=== PATIENT | female | born 1985 | race Caucasian/White ===

== ENCOUNTER 2016-12-28 10:20 | Emergency (ER) | payer OTHER ==
[~2016-12-28] VITALS: Ht 177.8 cm; Wt 188.2 kg
[~2016-12-28 10:20] MED LIST: IBUPROFEN800 MG PO; KEFLEX500 MG PO; NATURAL IRON65 MG PO; PERCOCET MONOGRA5 MG PO; VITAFOL-ONE1 SGL PO; VITAMIN D1000 IU PO; ZANTAC 150MG150 MG PO
--- NOTE | 2016-12-28 11:05 | ED SKIN/ALLERGY COMPLAINT ---
History of Present Illness General Chief Complaint: General Adult Stated Complaint: SENT BY MD FOR EVAL OF CELLULITIS OF LT LEG Source: patient, old records Exam Limitations: no limitations Vital Signs & Intake/Output Vital Signs & Intake/Output Vital Signs Date Time Temp Pulse Resp B/P B/P Pulse O2 O2 Flow FiO2 Mean Ox Delivery Rate 12/28 1253 100.2 12/28 1251 100.2 94 20 127/77 100 Room Air 12/28 1026 98.6 111 18 144/71 97 Room Air Allergies Coded Allergies: NO KNOWN ALLERGIES (06/25/15) Reconcile Medications Cephalexin (Keflex) 500 MG CAPSULE 1 CAP PO TID cellulitis Triage Note: 31 Y/O FEMALE SENT BY YG MENENDEZ FOR EVAL OF L LOWER EXTREMITY REDNESS/SWELLING X 24 HOURS. HX CELLULITIS AND STATES THIS IS SIMILIAR. HAS HAD TO GET IV ANTIBIOTICS IN THE PAST FOR SAME. PT HAD TEMP IN MD OFFICE 101.8 - AFEBRILE IN TRIAGE. YG MENENDEZ ALSO SENT QUICK STREP IN OFFICE BUT TOO EARLY TO TELL RESULTS. Triage Nurses Notes Reviewed? yes Onset: Abrupt Duration: day(s): (1), constant Timing: recent history Severity: mild Severity Numbers: 5 Location: extremities Possible Factors: no cause identified No Modifying Factors: none Associated Symptoms: sore throat : No Patient currently breastfeeds: No HPI: 31 -year-old female with history of recurrent lower extremity cellulitis presents to the ER for evaluation sent in by her primary care physician complaining of a one-day history of left lower extremity redness for the past one day. The patient has a history of cellulitis in the past that has required admission back in 2014. She states that 2 nights ago she had a sore throat associated generalized body aches and chills. The patient denies any known injury or trauma to the leg no difficulty with weightbearing or walking. She denies any swelling to the leg however states it is sore to the touch in the anterior aspect of her leg. She denies any drainage or open sores. No tick or insect bites no recent travel. She's been taking NyQuil for her symptoms with relief. No cough no shortness of breath no chest pain abdominal pain nausea vomiting or diarrhea. The patient states her primary care physician sent her here for a dose of IV antibiotics and be sent home with a prescription (TJ GARDNER) Past History Travel History Traveled to [place] past 21 day No Medical History Any Pertinent Medical History? 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 No (TJ GARDNER) Review of Systems Review of Systems Constitutional: Reports: see HPI. All Other Systems: Reviewed and Negative Comments Review of systems: See HPI, All other systems negative. Constitutional, no chills no fever, no malaise HEENT: No visual changes sore throat no congestion, no ear pain Cardiovascular: No chest pain , no palpitation , no orthopnea Skin: See HPI Respiratory: No dyspnea no cough no sputum no hemoptysis GI: No nausea no vomiting, no diarrhea, no bloating/constipation : No dysuria No hematuria, Muscle skeletal: No joint pain, no joint swelling, no back pain, no neck pain, Neurologic: No numbness no headache Psych: No stress no depression,. Heme/endocrine: No bruising no bleeding Immunology: No lymphadenopathy (TJ GARDNER) Physical Exam Physical Exam General Appearance: well developed/nourished, alert, awake, comfortable Comments: Well-developed well-nourished person in no acute distress Head/Face: Atraumatic, no maxillary/frontal sinus tenderness, no facial swelling Eyes: PERRL, EOMI, no conjunctival injection Ear:External auditory canals clear, no erythema, no FB. Nose: atraumatic.Normal inspection: No bleeding Throat: Moist mucous membranes.Pharynx normal. No pharyngeal erythema/exudate seen. No stridor/drooling or assymetry. No swelling or edema. Neck: Supple, no lymphadenopathy, FROM Back: Nontender, no CVA tenderness. Full range of motion Cardiovascular: Regular rate and rhythms no murmurs rubs Respiratory: Chest nontender.There were no bony deformities, no asymmetry. No respiratory distress. Patient speaking in full complete sentences. Breath sounds clear to auscultation bilaterally: NO W/R/R Abdomen: Soft, Obese nontender nondistended, no appreciable organomegaly. Normal bowel sounds. No rebound/guarding, ascites. upper Extremity: No edema, full range of motion of extremities, normal and equal pulses bilaterally, 5 out of 5 strength noted to bilateral upper extremities Hip/Pelvis: Atraumatic/Stable. FROM. Knee: Atraumatic/stable. FROM. No joint swelling, no effusion Leg: There is a circumferential area of erythema extending from the ankle to the mid lower leg not extending to the knee joint, nontender sensation is intact, there is no open wounds or sores noted drainage, Nontender. No edema, 5 out of 5 strength in the lower extremity, normal dorsiflexion of great toe bilaterally, gross sensation is intact, patellar tendon reflex 2+ bilaterally. Ankle/Foot: Atraumatic/stable. Skin intact. FROM. No swelling, no effusion. No laxity on exam Pulses: Normal/equal DP/PT pulses bilaterally. Brisk cap refill Neuro: Alert oriented x3, motor sensory normal, There were no obvious focal neurologic abnormalities. Skin: No appreciable rash on exposed skin, skin is warm and dry. Psych: Mood and affect is normal, memory and judgment is normal. (SANGEETA CASILLAS,TJ) Progress Differential Diagnosis: abscess/cellulitis, allergic reaction, anaphylaxis, contact dermatitis, erythema multiforme, lyme disease, scarlet fever, toxic shock syndrome, urticaria, COMPARTMENT SYNDROME FRACTURE SPRAIN CONTUSION dvt Plan of Care: Orders Procedure Date/time Status BLOOD CULTURE 12/28 111 Active LYME TITRE 12/28 111 Active COMPREHENSIVE METABOLIC PANEL 12/28 111 Complete CBC WITHOUT DIFFERENTIAL 12/28 111 Complete Laboratory Tests 12/28/16 1130: Anion Gap 14, Estimated GFR > 60, BUN/Creatinine Ratio 12.0, Glucose 115 H, Calcium 8.3 L, Total Bilirubin 0.9, AST 19, ALT 32, Alkaline Phosphatase 90, Total Protein 6.9, Albumin 3.7, Globulin 3.2, Albumin/Globulin Ratio 1.2, CBC w Diff MAN DIFF ORDERED, RBC 4.63, MCV 77.0 L, MCH 26.4 L, RDW 14.8 H, MPV 7.8, Gran % 93.0 H, Lymphocytes % 3.9 L, Monocytes % 2.9, Eosinophils % 0, Basophils % 0.2, Absolute Granulocytes 13.2 H, Segmented Neutrophils 86 H, Band Neutrophils 6 H, Absolute Lymphocytes 0.5 L, Lymphocytes 3 L, Monocytes 5, Absolute Monocytes 0.4, Absolute Eosinophils 0, Absolute Basophils 0, Platelet Estimate ADEQUATE, Normocytic RBCs VERIFIED, Normochromic RBCs VERIFIED , PUBS MCHC 34.2, Lyme Disease Antibody Pending Microbiology 12/28 1130 BLOOD: Blood Culture - RECD 12/28 1112 BLOOD: Blood Culture - ORD Labs ordered old records reviewed patient medicated with Cefzolin 2 g IV case and labs d/w dr dias agrees with plan I discussed with the patient at length all of their results. I had an extensive conversation regarding need for close follow up with their primary care physician/or return to the ER in 48 hours for wound check, as well as return precautions. I answered all of their questions, they feel comfortable with the plan and follow-up care. I discussed the medications that they will receive with the patient. I gave them signs and symptoms that could indicate an adverse reaction. I have advised them to limit their activities until they can see how they respond to the medication. (TJ GARDNER) Departure Departure Time of Disposition: 1229 Disposition: HOME OR SELF CARE Condition: Stable Clinical Impression Primary Impression: Cellulitis Referrals: RAFAT PAGE,VIDAL Nielsen (PCP/Family) Additional Instructions: as discusssed follow up with yg menendez or return to the ER on monday for wound check. keflex as directed. This was sent to your pharmacy: [facility]. Return immediately if you have persistent fever chills despite Tylenol Motrin worsening of your rash or any other concerns Departure Forms: Customer Survey General Discharge Information Prescriptions: Current Visit Scripts Cephalexin (Keflex) 1 CAP PO TID #30 CAP (TJ GARDNER) PA/INSIDE SALES ACCOUNT REPRESENTATIVE Co-Sign Statement Statement: ED Attending supervision documentation- I saw and evaluated the patient. I have also reviewed all the pertinent lab results and diagnostic results. I agree with the findings and the plan of care as documented in the PA's/INSIDE SALES ACCOUNT REPRESENTATIVE's documentation. x I have reviewed the ED Record and agree with the PA's/INSIDE SALES ACCOUNT REPRESENTATIVE's documentation. [] Additions or exceptions (if any) to the PAs/INSIDE SALES ACCOUNT REPRESENTATIVE's note and plan are summarized below: [] (NEREIDA ESCOBAR,JRERY)
[2016-12-28 11:42] LABS: ABSOLUTE BASOPHIL COUNT 0 /CUMM (0.0-0.2); ABSOLUTE EOSINOPHIL COUNT 0 /CUMM (0.0-0.7); ABSOLUTE GRANULOCYTE CT 13.2 /CUMM (1.4-6.5); ABSOLUTE LYMPH COUNT 0.5 /CUMM (1.2-3.4); ABSOLUTE MONOCYTE COUNT 0.4 /CUMM (0.10-0.60); BASOPHIL % 0.2 % (0.0-2.0); EOSINOPHIL % 0 % (0-5); HEMATOCRIT 35.7 % (37-47); MEAN CORPUSCULAR HGB 26.4 PG (27.0-31.0); MEAN CORPUSCULAR HGB CONC 34.2 G/DL (33.0-37.0); MEAN PLATELET VOLUME 7.8 FL (7.4-10.4); PLATELET COUNT 238 /CUMM (130-400); RBC DISTRIBUTION WIDTH 14.8 % (11.5-14.5); RED BLOOD CELL CT 4.63 /CUMM (4.20-5.40); WHITE BLOOD CELL COUNT 14.2 /CUMM (4.8-10.8)
[2016-12-28] MEDS ORDERED: KEFLEX500 M1 PO (12:32)
[2016-12-28 12:51] VITALS: BP 127/77
== END 2016-12-28 12:58 ==
LOC: ERH 10:20
PROVIDERS: Physician Assistant Medical
DX: L03.116 Cellulitis of left lower limb (principal)
CPT/HCPCS: 86618; 87040; 96374; J0690

== ENCOUNTER 2016-12-30 02:37 | Inpatient (IN) | payer OTHER ==
[~2016-12-30] VITALS: Ht 180.3 cm; Wt 186.0 kg
[~2016-12-30 02:37] MED LIST changes: +KEFLEX500 M1 PO
--- NOTE | 2016-12-30 03:06 | NUR ---
31YO FEMALE TO TRIAGE W/CO LLE CELLULITIS WORSENING. STATE SHE WAS SEEN HERE ON MON, AND NOW CHILLS, N,V,D TODAY.
--- NOTE | 2016-12-30 03:30 | NUR ---
DEVIKA BY DR PADRON
--- NOTE | 2016-12-30 03:50 | NUR ---
IV INSERTED AFTER GREAT DIFFICULTY LABS DRAWN--SST,BLUE,LANDIN,LAV ALL SENT TO LAB. CO ROSS AND NAUSEA.
[2016-12-30 04:03] LABS: ABSOLUTE BASOPHIL COUNT 0 /CUMM (0.0-0.2); ABSOLUTE EOSINOPHIL COUNT 0 /CUMM (0.0-0.7); ABSOLUTE LYMPH COUNT 0.9 /CUMM (1.2-3.4); ABSOLUTE MONOCYTE COUNT 0.6 /CUMM (0.10-0.60); BASOPHIL % 0.1 % (0.0-2.0); EOSINOPHIL % 0.1 % (0-5); GRANULOCYTE % 86.9 % (42.2-75.2); MEAN CORPUSCULAR HGB CONC 33.2 G/DL (33.0-37.0); MEAN CORPUSCULAR VOLUME 78.5 FL (81.0-99.0); PLATELET COUNT 224 /CUMM (130-400); RBC DISTRIBUTION WIDTH 14.8 % (11.5-14.5); RED BLOOD CELL CT 4.33 /CUMM (4.20-5.40); WHITE BLOOD CELL COUNT 11.5 /CUMM (4.8-10.8)
--- NOTE | 2016-12-30 04:44 | NUR ---
PT TO BE ADMITTED HOUSE STAFF HERE TO [facility]
--- NOTE | 2016-12-30 04:48 | ED SKIN/ALLERGY COMPLAINT ---
History of Present Illness General Chief Complaint: Lower Extremity Problems Stated Complaint: "PER PT LT LEG PAIN,N+V+D,CHILLS,FEVER" Source: patient, old records Exam Limitations: no limitations Vital Signs & Intake/Output Vital Signs & Intake/Output Vital Signs Date Time Temp Pulse Resp B/P B/P Pulse O2 O2 Flow FiO2 Mean Ox Delivery Rate 12/30 0315 97 Room Air 12/30 0307 98.5 98 20 111/77 97 Room Air Room Air Allergies Coded Allergies: NO KNOWN ALLERGIES (06/25/15) Reconcile Medications Cephalexin (Keflex) 500 MG CAPSULE 1 CAP PO TID cellulitis Triage Note: 31YO FEMALE TO TRIAGE W/CO LLE CELLULITIS WORSENING. STATE SHE WAS SEEN HERE ON MON, AND NOW CHILLS, N,V,D TODAY. Triage Nurses Notes Reviewed? yes Onset: Last week Duration: day(s):, constant, continues in ED, getting worse Timing: recent history Severity: moderate Location: extremities Possible Factors: no cause identified No Modifying Factors: none Associated Symptoms: change in skin texture, rash LMP (ages 10-50): unknown : No Patient currently breastfeeds: No HPI: Several days prior to admission patient develop nausea vomiting fever and red rash below her knee to her ankle. She was seen in the emergency department given IV antibiotics declined hospitalization and discharged home. She presents with continued symptoms without improvement. She denies diarrhea abdominal pain chest pain cough shortness of breath headache dysuria bleeding. Past History Travel History Traveled to [place] past 21 day No Medical History Any Pertinent Medical History? 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 No Review of Systems Review of Systems Constitutional: Reports: see HPI, chills, fever, malaise. EENTM: Reports: no symptoms. Respiratory: Reports: no symptoms. Cardiovascular: Reports: no symptoms. GI: Reports: see HPI, nausea, vomiting. Genitourinary: Reports: no symptoms. Musculoskeletal: Reports: no symptoms. Skin: Reports: see HPI, rash. Neurological/Psychological: Reports: no symptoms. Hematologic/Endocrine: Reports: no symptoms. Immunologic/Allergic: Reports: no symptoms. All Other Systems: Reviewed and Negative Physical Exam Physical Exam General Appearance: well developed/nourished, alert, awake, anxious, mild distress, obese Head: atraumatic, normal appearance Eyes: Bilateral: normal appearance, PERRL, EOMI. Ears, Nose, Throat: normal pharynx, normal ENT inspection, hearing grossly normal Neck: normal inspection, supple Respiratory: normal breath sounds Cardiovascular: regular rate/rhythm Peripheral Pulses: 4+ carotid (R), 4+ carotid (L) Gastrointestinal: normal bowel sounds, soft, non-tender Back: normal inspection, normal range of motion, no vertebral tenderness Extremities: normal inspection, normal range of motion, no edema Neurologic/Psych: awake, alert, oriented x 3, normal mood/affect Reflexes: 2+: bicep (R), bicep (L). Skin: intact, rash Skin Problem Location: lower extremities (left leg) Skin Problem Character: erythema, rash Lymphatic: no anterior cervical christy Progress Differential Diagnosis: abscess/cellulitis, allergic reaction, contact dermatitis Plan of Care: Orders Procedure Date/time Status Regular Diet 12/30 B Active OXYGEN SETUP (GEN) 12/30 326 Active Saline Lock 12/30 326 Active Admit to inpatient 12/30 326 Active Vital Signs 12/30 326 Active Activity/Ambulation 12/30 326 Active COMPREHENSIVE METABOLIC PANEL 12/30 326 Complete CBC WITHOUT DIFFERENTIAL 12/30 326 Complete Code Status 12/30 326 Active Current Medications Sig/Juan Carlos Start time Last Medication Dose Stop Time Status Admin Ondansetron HCl 4 MG ONCE ONE 12/31 399 UNVr 12/30 (Zofran) 12/30 0401 0400 Laboratory Tests 12/30/16 0350: Anion Gap 10, Estimated GFR > 60, BUN/Creatinine Ratio 17.8, Glucose 127 H, Calcium 8.4, Total Bilirubin 0.7, AST 33, ALT 39, Alkaline Phosphatase 109, Total Protein 6.6, Albumin 3.4 L, Globulin 3.2, Albumin/Globulin Ratio 1.1, CBC w Diff NO MAN DIFF REQ, RBC 4.33, MCV 78.5 L, MCH 26.0 L, RDW 14.8 H, MPV 8.0 , Gran % 86.9 H, Lymphocytes % 7.5 L, Monocytes % 5.4, Eosinophils % 0.1, Basophils % 0.1, Absolute Granulocytes 10.0 H, Absolute Lymphocytes 0.9 L, Absolute Monocytes 0.6, Absolute Eosinophils 0, Absolute Basophils 0, PUBS MCHC 33.2 Departure Departure Time of Disposition: 0330 Disposition: STILL A PATIENT Condition: Stable Clinical Impression Primary Impression: Cellulitis of leg, left Referrals: RAFAT PAGE,VIDAL Nielsen (PCP/Family) Departure Forms: Customer Survey General Discharge Information Admission Note Sp[facility] Documentation of Exam: Documentation of any treatments & extenuating circumstances including Concerns Regarding Discharge (functional status, medication knowledge or non-compliance, living conditions, etc.) that warrant an admission rather than observation: Failure of oral antibiotics requiring IV antibiotics IV antiemetic IV analgesia medication adjustment follow cultures continuing care discharge planning
--- NOTE | 2016-12-30 05:01 | History & Physical ---
MABLE TELLEZ 12/30/16 0501: General Information and HPI MD Statement: I have seen and personally examined CRISPIN CERDA and documented this H&P. The patient is a 31 year old F who presented with a patient stated chief complaint of [left lower leg cellulitis]. Source of Information: patient, old records Exam Limitations: no limitations History of Present Illness: 31-year-old morbidly obese woman was admitted for cellulitis failed outpatient antibiotic treatment. Patient has past medical history significant for multiple cellulitis and chronic lymphatic B/L lower extremities edema. In 2014 patient was admitted for cellulitis of the right lower extremity in [facility] which was treated with cefazolin inpatient/Keflex outpatient. The remainder of her past medical history and social history and family history is noncontributory. According to patient she was at her normal state of health up until 12/26/2016 when she started feeling fatigue, malaise, intermittent shaking chills and high-grade fever (maximum pressure of 102 Fahrenheit). Patient symptoms worsen over time. Patient felt nauseous intermittently and vomited 2 or 3 times and her by mouth intake decreased. On Monday for the first time patient noticed intense redness, warmth, tender area on her left lower extremity from the left ankle to below knee. Patient denies any trauma, abrasion, to the affected came she also denies any chest pain , palpitation, difficulty breathing, muscle weakness, postural drainage, honey- colored crusting. She was seen in the emergency room on 12/28/2016, and received 1 dose of IV cefazolin and was started on by mouth Keflex and discharged home. Her symptoms failed to improve on by mouth antibiotics and patient presents to emergency room on Monday morning complaining of left lower extremity redness and tenderness and intractable nausea. 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 yes Functional Ability ADLs Independent: dressing, eating, toileting, bathing. Ambulation: independent IADLs Independent: shopping, housework, finances, food prep, telephone, transportation , medication admin. Review of Systems Review of Systems Constitutional: Reports: see HPI. EENTM: Reports: see HPI. Cardiovascular: Reports: see HPI. Respiratory: Reports: see HPI. GI: Reports: see HPI, nausea, vomiting. Genitourinary: Reports: see HPI. Musculoskeletal: Reports: see HPI. Skin: Reports: change in skin color, erythema. Denies: lumps, moles, rash. All Other Systems: Reviewed and Negative Exam & Diagnostic Data Last 24 Hrs of Vital Signs/I&O Vital Signs Date Time Temp Pulse Resp B/P B/P Pulse O2 O2 Flow FiO2 Mean Ox Delivery Rate 12/30 0545 80 106/58 12/30 0510 98.7 82 16 92/55 97 Room Air 12/30 0315 97 Room Air 12/30 0307 98.5 98 20 111/77 97 Room Air Room Air Intake & Output 12/30 0800 12/30 0000 12/29 1600 Intake Total 450 Output Total 200 Balance 250 Intake, IV 250 Intake, Oral 200 Output, Urine 200 Patient 410 lb Weight Physical Exam General Appearance Alert, Oriented X3, Cooperative, No Acute Distress Skin LLE erythema , LLE warmth HEENT Atraumatic, PERRLA, EOMI, Mucous Membr. moist/pink Neck Supple, No JVD, No thryomegaly, +2 Carotid Pulse wo Bruit, No LAD Lymphatic Axillary nl, Cervical nl Cardiovascular Normal S1, Normal S2, No Murmurs Lungs Clear to Auscultation, Normal Air Movement Abdomen Normal Bowel Sounds, Soft, No Tenderness, No Hepatospenomegaly, No Masses Neurological Normal Speech Extremities non-pittin edema of B/L lowr extremities Vascular Normal Pulses, Pulses Symmetrical Body Front and Back (Adult) 1) redness Last 24 Hrs of Labs/Davon: Laboratory Tests 12/30/16 0350: Anion Gap 10, Estimated GFR > 60, BUN/Creatinine Ratio 17.8, Glucose 127 H, Calcium 8.4, Total Bilirubin 0.7, AST 33, ALT 39, Alkaline Phosphatase 109, Total Protein 6.6, Albumin 3.4 L, Globulin 3.2, Albumin/Globulin Ratio 1.1, CBC w Diff NO MAN DIFF REQ, RBC 4.33, MCV 78.5 L, MCH 26.0 L, RDW 14.8 H, MPV 8.0 , Gran % 86.9 H, Lymphocytes % 7.5 L, Monocytes % 5.4, Eosinophils % 0.1, Basophils % 0.1, Absolute Granulocytes 10.0 H, Absolute Lymphocytes 0.9 L, Absolute Monocytes 0.6, Absolute Eosinophils 0, Absolute Basophils 0, PUBS MCHC 33.2 Assessment/Plan Assessment: 31-year-old woman was admitted for cellulitis failed outpatient antibiotic therapy. Patient has leukocytosis and normal metabolic panel. Assessment and plan #1 cellulitis: Causes cellulitis would be susceptible coccus and Staphylococcus at the top of the list. There is no helen polyps in the physical exam which decreased concern regarding MRSA infection. * Admit to general medical floor * Obtain Doppler ultrasound to rule out DVT * Repeat C BC tomorrow * Marked the area to assess response to treatment * Patient received vancomycin in the emergency room; not necessary * Start IV cefazolin 1000 mg every 8 hours * By mouth Zofran sublingual as needed for nausea -Pain management mild: Tylenol; moderate ketorolac; severe IV morphine -DVT prophylaxis-heparin 5000 units every 8 hours subcutaneous -Full code As Ranked By This Provider Problem List: 1. Cellulitis 2. Edema Core Measures/Miscellaneous Acute Coronary Syndrome ACS Diagnosis: No Cerebrovascular Accident CVA/TIA Diagnosis: No Congestive Heart Failure CHF Diagnosis: No Venous Thromboembolism VTE Risk Factors: Acute medical illness, Age > 40, Immobility, paresis, Obesity [facility] prophylaxis d/t: No contraindications No VTE Pharm Prophylaxis d/t: No contraindications VTE Diagnosis: No VTE Type: NONE VTE Confirmed by (Test): NONE Severe Sepsis Severe Sepsis Present: No Septic Shock Septic Shock Present: No Miscellaneous Documentation Attending Case Discussed With: HAJA GARCIA MD Primary Care Physician: VIDAL HENDRIX Patient sees these Specialists Hospitalist Level of Patient Care: General Medicine Resident Review Statement Resident Statement: examined this patient, discussed with pharmacist intern, agreed with pharmacist intern, discussed with family, reviewed EMR data (avail), discussed with nursing , discussed with case mgmt, reviewed images, amended to note RADHA ESCOBAR, [facility] 12/30/16 0608: Attending MD Review Statement Attending Statement Attending MD Statement: examined this patient, discuss w/resident/PA/MISSILE PAD MECHANIC, agreed w/resident/PA/MISSILE PAD MECHANIC Attending Assessment/Plan: 31 yo morbidly obese F with chronic lymphedema, previous cellulitis, bipolar d/o , was sent in to ER 2 days ago by PCP for LLE cellulitis that started off as flu like symptoms 1 week ago. She has dry skin and reports scratching her legs, but no tick or insect bites. She was advised admission but refused and was sent home on Keflex. She returns today for persistent fever (102)/chills, nausea and vomiting, failed outpatient abx therapy. Of note, patient reports seeing a Vascular surgeon 2 yrs ago and was diagnosed with ?venous insufficiency. VSS. Extremities: b/l LE nonpitting edema, LLE: diffuse erythema extending upto left knee with warmth, induration and tenderness , no weeping lesions, pulses weak. Labs: WBC 11.5, microcytic anemia, K 3.3, glucose 127. 1. Left lower extremity cellulitis, failed outpatient antibiotic therapy. GM admit, leg elevation, panculture, received IV vanco in ER, will initiate cefazolin, holding off Vanco (no obvious purulence), IV fluids, check lactic acid. Rule out DVT. Treat eczema with topical meds. Replete potassium. 2. Evaluate microcytic anemia. Patient currently has her menses. DVT ppx Hep SC. Full code.
--- NOTE | 2016-12-30 05:21 | NUR ---
PT ASSIGNED TO [place] [id number]
--- NOTE | 2016-12-30 05:49 | Admission Certification ---
Admission Certification Certification Statement - As attending physician, I certify that at the time of - admission, based on clinical presentation, severity of - symptoms, need for further diagnostic testing and - therapeutic interventions, and risk of adverse outcomes - without in-hospital treatment, in my clinical assessment, - this patient requires an acute hospital stay for a minimum - of two nights or longer. I have also considered psychsocial - factors such as support system, advanced age, financial - issues, cognitive issues, and failed out-patient treatments, - past re-admission history, safety of patient, and lack of - compliance as applicable. Specific rationale supporting this admission is: Left lower extremity cellulitis, failed outpatient antibiotic therapy.
--- NOTE | 2016-12-30 07:00 | NUR ---
PT ARRIVED FROM ER VIA STRETCHER, AMBULATED TO BED WITHOUT DIFFICULTY. LLE BRIGHT RED, WARM TO TOUCH, EDEMATIS WITH INCREASED PAIN/TENDERNESS WITH PRESSURE OR STANDING. RLE +1-2 EDEMA, BILAT +4 PEDAL EDEMA. BILAT FEET VERY DRY. SMALL CRACK IN SKIN BETWEEN LT GREAT AND 2ND TOES. PT STATES SHE STARTED MENSES YESTERDAY. HOME [employer] CONTACTED R/T LACTIC ACID BLOOD ORDERS. FIRST DRAW ORDERED FOR 0900 WITH REPEAT @ 0908. STATES WILL FIX.
--- NOTE | 2016-12-30 07:18 | PN- Housestaff ---
JAKE ESCOBAR,[facility] 12/30/16 0718: Subjective Follow-up For: Cellulitis failed outpatient therapy Subjective: Patient is lying comfortably in bed. States that she had several episodes of cellulitis in the RLE, 2 episodes in the LLE over the last year. She has also seen a vascular surgeon when she was 20, and was told that she has venous insufficiency of her lower extremities, which did not need any intervention. Review of Systems Constitutional: Reports: see HPI. Objective Last 24 Hrs of Vital Signs/I&O Vital Signs Date Time Temp Pulse Resp B/P B/P Pulse O2 O2 Flow FiO2 Mean Ox Delivery Rate 12/30 0545 80 106/58 12/30 0510 98.7 82 16 92/55 97 Room Air 12/30 0315 97 Room Air 12/30 0307 98.5 98 20 111/77 97 Room Air Room Air Intake & Output 12/30 0800 12/30 0000 12/29 1600 Intake Total 450 Output Total 200 Balance 250 Intake, IV 250 Intake, Oral 200 Output, Urine 200 Patient 410 lb Weight Weight Reported by Patient Measurement Method Physical Exam General Appearance: Alert, Oriented X3, Cooperative, No Acute Distress Cardiovascular: Regular Rate, Normal S1, Normal S2 Lungs: Clear to Auscultation, Normal Air Movement Abdomen: Normal Bowel Sounds, Soft, No Tenderness Neurological: Normal Speech, Strength at 5/5 X4 Ext, Normal Tone, Sensation Intact Extremities: No Clubbing (L), LLE shows erythema extending upto the mid calf with mild tenderness. No edema noted. Current Medications: Current Medications Sig/Juan Carlos Start time Last Medication Dose Route Stop Time Status Admin Acetaminophen 650 MG Q6P PRN 12/30 0415 AC PO Cefazolin Sodium 1,000 MG IQ8 12/30 0800 AC IV Heparin Sodium 5,000 UNIT Q8 12/30 0600 AC (Porcine) SC Ketorolac 15 MG Q6P PRN 12/30 0415 AC Tromethamine IV Ketorolac 0 .STK-MED ONE 12/30 0400 DC Tromethamine .ROUTE Ketorolac 30 MG ONCE ONE 12/30 0330 DC 12/30 Tromethamine IV 12/30 0331 0400 Morphine Sulfate 4 MG Q4P PRN 12/30 0415 AC IV Ondansetron HCl 4 MG ONCE PRN 12/30 0515 AC PO Ondansetron HCl 4 MG ONCE ONE 12/30 0400 DC 12/30 IV 12/30 0401 0400 Ondansetron HCl 0 .STK-MED ONE 12/30 040 DC .ROUTE Potassium Chloride 20 MEQ BID 12/30 1000 AC PO Potassium Chloride 10 MEQ Q1H 12/30 0615 DC IV 12/30 0716 Sodium Chloride 1,000 ML Q8H 12/30 0730 UNVr IV Sodium Chloride 1,000 ML BOLUS ONE 12/30 0615 CAN IV 12/30 0814 Sodium Chloride 1,000 ML ONCE ONE 12/30 0615 AC IV 12/30 1414 Vancomycin HCl 0 .STK-MED ONE 12/31 399 DC .ROUTE Vancomycin HCl 1,000 MG ONCE ONE 12/30 0330 DC 12/30 Sodium Chloride 250 ML IV 12/30 0429 0406 Last 24 Hrs of Lab/Davon Results Last 24 Hrs of Labs/Mics: Laboratory Tests 12/30/16 0547: Urine Color PINK H, Urine Clarity HAZY H, Urine pH 6.5, Ur Specific [place] 1.010, Urine Protein 100 H, Urine Ketones NEG, Urine Nitrite NEG, Urine Bilirubin NEG@ICTO, Urine Urobilinogen 4.0 H, Ur Leukocyte Esterase SMALL H, Ur Microscopic SEDIMENT EXAMINED, Urine RBC >75 H, Urine WBC 15-25 H, Ur Epithelial Cells FEW, Urine Bacteria MANY H, Urine Hemoglobin LARGE H, Urine Glucose NEG 12/30/16 0350: Anion Gap 10, Estimated GFR > 60, BUN/Creatinine Ratio 17.8, Glucose 127 H, Calcium 8.4, Iron 22 L, TIBC 288, Ferritin 142.0 H, Total Bilirubin 0.7, AST 33, ALT 39, Alkaline Phosphatase 109, Total Protein 6.6, Albumin 3.4 L, Globulin 3.2, Albumin/Globulin Ratio 1.1, CBC w Diff NO MAN DIFF REQ, RBC 4.33, MCV 78.5 L, MCH 26.0 L, RDW 14.8 H, MPV 8.0, Gran % 86.9 H, Lymphocytes % 7.5 L, Monocytes % 5.4, Eosinophils % 0.1, Basophils % 0.1, Absolute Granulocytes 10.0 H, Absolute Lymphocytes 0.9 L, Absolute Monocytes 0.6, Absolute Eosinophils 0, Absolute Basophils 0, PUBS MCHC 33.2 Microbiology 12/30 06 BLOOD: Blood Culture - ORD 12/31 607 BLOOD: Blood Culture - ORD Lines/Diet/Fluids Lines: peripheral lines Assessment/Plan Assessment: 31 y/o F with h/o Bipolar Disorder, seen in the ED 2 days ago for cellulitis of the LLE, sent out on Keflex, returns with persistent fevers, chills, nausea and vomiting. She also has a history of ?vascular insufficiency for which she had seen a vascular surgeon 2 years ago. In the ED, labs showed and elevated WBC of 11.5 and K of 3.3. She is currentl admitted to the general medicine floor for management of cellulitis. Problem List: * Cellulitis of LLE * H/O Bipolar Disorder * Microcytic Anemia Plan: * Monitor on General Medicine floor. * Continue Cefazolin pending cultures. * Doppler of the LE pending. * Hypokalemia: Currently on 40 mg Kdur. Recheck K. * DVT PPx: SubQ Heparin * Pain Pathway: Tylenol, Toradol, Ketorolac * Code Status: Full Code Problem List: 1. Cellulitis of leg, left Pain Ratin Pain Location: LLE Pain Goal: Pain 4 or less Pain Plan: Per EMR Tomorrow's Labs & Rationales: CBC for infection monitoring. DVT/Prophylaxis: pharmacological LORI LEON MD 12/30/16 1032: Attending MD Review Statement Attending Statement Attending MD Statement: examined this patient, discuss w/resident/PA/VETERINARY X RAY OPERATOR, agreed w/resident/PA/VETERINARY X RAY OPERATOR, reviewed EMR data (avail) Attending Assessment/Plan: 31F PMH chronic lymphedema, morbid obesity, recurrent bilateral LE cellulitis, bipolar disorder admitted with LLE cellulitis failing outpatient therapy ( Cephalex) with fever 102, nausea, vomiting, and generalized weakness. Patient feels better today, denies pain, afebrile overnight, BP 105/66 but stable. LLE erythematous and tender from ankle to just below knee anteriorly. Labs show hypokalemia (3.3), iron deficiency anemia, WBC 11.4. 1. Recurrent LLE cellulitis 2. Failure of outpatient therapy 3. Morbid obesity 4. Chronic lymphedema 5. Iron deficiency anemia 6. Hypokalemia Plan - Continue on general medicine - Continue Cefazolin - Monitor for improvement of erythema - Follow blood cultures - Leg elevation - Continue home medications - Nutrition consult - DVT PPx
[2016-12-30 07:42] VITALS: BP 105/60
--- NOTE | 2016-12-30 12:13 | ULTRASOUND REPORT ---
EXAMINATION: US TRIPLEX OF LOWER EXTREMITIES, BILATERAL CLINICAL INFORMATION: Pain and swelling COMPARISON: None TECHNIQUE: Color-flow triplex imaging with spectral analysis and compression Doppler were performed on the lower extremities. FINDINGS: Respiratory variation, normal compression and augmented flow are noted throughout the lower extremities. The visualized common femoral vein, superficial femoral vein, profunda femoral vein, popliteal vein and midcalf peroneal and posterior tibial venous segments show no evidence of deep venous thrombosis. There is no Simmons's cyst. Inguinal lymph nodes measuring up to 4.8 cm IMPRESSION: Normal triplex scan without evidence of deep venous thrombosis involving the lower extremities. Enlarged left inguinal lymph nodes.
[2016-12-30 14:30] VITALS: BP 100/58
--- NOTE | 2016-12-30 14:34 | Patient Discharge Instructions ---
Discharge Instructions General Discharge Information You were seen/treated for: Cellulitis of Left Leg Special Instructions: Please make an appointment to see your PCP Within one week from discharge. Diet Recommended Diet: Low Fat Activity Activity Self Limited: Yes Acute Coronary Syndrome Inclusion Criteria At DC or during hospital stay patient has or had the following: ACS DIAGNOSIS No Discharge Core Measures Meds if any: Prescribed or Continued at Discharge Meds if any: NOT Prescribed or Continued at Discharge Congestive Heart Failure Inclusion Criteria At DC or during hospital stay patient has or had the following: CHF DIAGNOSIS No Discharge Core Measures Meds if any: Prescribed or Continued at Discharge Meds if any: NOT Prescribed or Continued at Discharge Cerebrovascular accident Inclusion Criteria At DC or during hospital stay patient has or had the following: CVA/TIA Diagnosis No Discharge Core Measures Meds if any: Prescribed or Continued at Discharge Meds if any: NOT Prescribed or Continued at Discharge Venous thromboembolism Inclusion Criteria VTE Diagnosis No VTE Type NONE VTE Confirmed by (Test) NONE Discharge Core Measures - Per Current guidelines, there needs to be overlap - treatment for the first 5 days of Warfarin therapy. - If discharged on Warfarin prior to 5 days of - overlap therapy, the patient will need to be - assessed for post discharge needs including - *Post discharge parental anticoagulation - *Warfarin and/or parental anticoagulation education - *Follow up date to check INR post discharge At least 5 days overlap therapy as Inpatient Yes Meds if any: Prescribed or Continued at Discharge Note: Overlap Therapy is Warfarin and Anticoagulant Meds if any: NOT Prescribed or Continued at Discharge
--- NOTE | 2016-12-30 14:40 | Discharge Summary ---
See Addendum Visit Information Visit Dates Admission Date: 12/30/16 Discharge Date: 01/03/17 Hospital Course Course Attending Physician: LORI LEON MD Primary Care Physician: VIDAL HENDRIX Hospital Course: 31 y/o F with h/o Bipolar Disorder, seen in the ED 2 days ago for cellulitis of the LLE, sent out on Keflex, returns with persistent fevers, chills, nausea and vomiting. She also has a history of vascular insufficiency for which she had seen a vascular surgeon 2 years ago. In the ED, labs showed and elevated WBC of 11.5 and K of 3.3. She is currently admitted to the general medicine floor for management of cellulitis. She was initiated on Cefazolin for cellulitis, pending cultures. There was marked improvement in the area of erythema. Nutritional consult was placed for dietary instruction. She was discharged on Keflex 500 mg Q6 for a total 10 day course. Allergies: Coded Allergies: NO KNOWN ALLERGIES (06/25/15) Significant Procedures: Doppler of B/L LE was negative for DVT Pertinent Lab Results: Vital Signs Date Time Temp Pulse Resp B/P B/P Pulse O2 O2 Flow FiO2 Mean Ox Delivery Rate 01/03 0614 97.9 89 20 117/66 92 Room Air 01/02 2250 98.5 90 20 140/73 99 Room Air 01/02 1439 98.7 100 20 128/70 95 Room Air 01/02 0644 98.1 97 20 100/70 98 Room Air 01/01 2239 98.1 93 18 119/58 100 Room Air 01/01 1516 97.8 102 18 130/70 96 Room Air 01/01 0647 98.6 92 18 110/72 94 Room Air 12/31 2305 98.3 85 20 132/60 97 Room Air 12/31 1435 98.0 95 20 109/60 98 Room Air 12/31 0721 97.7 97 20 108/68 98 Room Air 12/30 2231 98.7 101 20 96/70 94 Room Air 05/ 1430 98.9 82 18 100/58 94 Room Air Room Air 05/ 0742 99.1 85 18 105/60 91 Room Air 05/ 0545 80 106/58 05/12 0510 98.7 82 16 92/55 97 Room Air 05/ 0315 97 Room Air 12/30 0307 98.5 98 20 111/77 97 Room Air Room Air Disposition Summary Disposition Principal Diagnosis: Cellulitis of LLE Additional Diagnosis: Morbid Obesity Vascular insufficiency of b/l LE Discharge Disposition: home or self care Discharge Instructions General Discharge Information Code Status: Full Code Patient's Diet: Low Fat, Heart Healthy Patient's Activity: As tolerated Follow-Up Instructions/Appts: Please make an appointment to see your PCP within one week from discharge. Medications at Discharge Discharge Medications: Stop taking the following medications: Cephalexin (Keflex) 500 MG CAPSULE ORAL THREE TIMES DAILY Qty = 30 Start taking the following new medications: Cephalexin (Keflex) 500 MG CAPSULE 500 Milligram ORAL EVERY SIX HOURS Days = 6 No Refills Copies To: RAFAT PAGE,VIDAL Nielsen
--- NOTE | 2016-12-30 19:52 | NUR ---
BEDSIDE REPORT GIVEN. PT C/O HEADACH. PT LLE RED/WARM/SWOLLEN. PT OOB IND, CALL LIGHT WITHIN REACH. TOLERATING REG DIET. REFUSES ALPS.
[2016-12-30 22:31] VITALS: BP 96/70
[2016-12-31 07:21] VITALS: BP 108/68
--- NOTE | 2016-12-31 08:11 | PN- Housestaff ---
See Addendum Subjective Follow-up For: cellulitis Subjective: pt reports difficulty sleeping last night her wbc has come down from 11.5 to 9.6. k 3.3 to 3.6 .. will give another 1 x dose of kdur redness on lle improved, still edematous. she complains of soreness on the back of left leg anticipated discharge tmr on oral abx. pt agreeable. Review of Systems Constitutional: Reports: see HPI. Objective Last 24 Hrs of Vital Signs/I&O Vital Signs Date Time Temp Pulse Resp B/P B/P Pulse O2 O2 Flow FiO2 Mean Ox Delivery Rate 12/31 0721 97.7 97 20 108/68 98 Room Air 12/30 2231 98.7 101 20 96/70 94 Room Air 12/30 1430 98.9 82 18 100/58 94 Room Air Room Air Intake & Output 12/31 1600 12/31 0800 12/31 0000 Intake Total 920 1220 Output Total Balance 920 1220 Intake, IV 600 300 Intake, Oral 320 920 Physical Exam General Appearance: Alert, Oriented X3, Cooperative, No Acute Distress Cardiovascular: Regular Rate, Normal S1, Normal S2 Lungs: Clear to Auscultation, Normal Air Movement Abdomen: Normal Bowel Sounds, Soft, No Tenderness Neurological: Normal Speech Extremities: LLE erythema and swelling Current Medications: Current Medications Sig/Juan Carlos Start time Last Medication Dose Route Stop Time Status Admin Acetaminophen 650 MG .STK-MED ONE 12/31 0035 DC PO 12/31 0036 Acetaminophen 650 MG Q6P PRN 12/30 0515 12/31 PO 0819 Cefazolin Sodium 1,000 MG IQ8 12/30 0800 AC 12/31 IV 0812 Heparin Sodium 5,000 UNIT Q8 12/30 0600 12/31 (Porcine) SC 0805 Ketorolac 15 MG Q6P PRN 12/30 0515 12/30 Tromethamine IV 1959 Morphine Sulfate 4 MG Q4P PRN 12/30 0515 AC IV Ondansetron HCl 4 MG ONCE PRN 12/30 0515 AC 12/30 PO 0956 Patient Medication 1 ED .STK-MED ONE 12/30 1350 DC Teaching ED 12/30 1351 Potassium Chloride 40 MEQ ONCE ONE 12/31 0915 UNVr PO 12/31 0916 Sodium Chloride 1,000 ML Q8H 12/30 0730 AC 12/31 IV 0807 Sodium Chloride 1,000 ML ONCE ONE 12/30 0615 DC 12/30 IV 12/30 1414 0730 Assessment/Plan Assessment: 31 y/o F with h/o Bipolar Disorder, seen in the ED 2 days ago for cellulitis of the LLE, sent out on Keflex, returns with persistent fevers, chills, nausea and vomiting. She also has a history of ?vascular insufficiency for which she had seen a vascular surgeon 2 years ago. In the ED, labs showed and elevated WBC of 11.5 and K of 3.3. She is currentl admitted to the general medicine floor for management of cellulitis. Problem List: * Cellulitis of LLE * H/O Bipolar Disorder * Microcytic Anemia Plan: * Monitor on General Medicine floor. * Continue Cefazolin pending cultures. * AD tmr with oral abx * Doppler of the LE done (no dvt) * Hypokalemia: Given 2X40 mg Kdur. Recheck K in am * DVT PPx: SubQ Heparin * Pain Pathway: Tylenol, Toradol, Ketorolac * Code Status: Full Code Problem List: 1. Cellulitis of leg, left Pain Ratin Pain Location: left leg Pain Goal: Pain 4 or less Pain Plan: mild pp Tomorrow's Labs & Rationales: bep for hypokalemia cbc for leukocytosis DVT/Prophylaxis: pharmacological, refused alps
[2016-12-31 08:39] LABS: ABSOLUTE BASOPHIL COUNT 0 /CUMM (0.0-0.2); ABSOLUTE EOSINOPHIL COUNT 0.1 /CUMM (0.0-0.7); ABSOLUTE GRANULOCYTE CT 7.3 /CUMM (1.4-6.5); ABSOLUTE LYMPH COUNT 1.5 /CUMM (1.2-3.4); ABSOLUTE MONOCYTE COUNT 0.7 /CUMM (0.10-0.60); BASOPHIL % 0.3 % (0.0-2.0); EOSINOPHIL % 0.8 % (0-5); GRANULOCYTE % 75.8 % (42.2-75.2); HEMATOCRIT 32.5 % (37-47); MEAN CORPUSCULAR HGB 26.3 PG (27.0-31.0); MEAN CORPUSCULAR HGB CONC 33.1 G/DL (33.0-37.0); MEAN CORPUSCULAR VOLUME 79.3 FL (81.0-99.0); MEAN PLATELET VOLUME 8.3 FL (7.4-10.4); PLATELET COUNT 225 /CUMM (130-400); WHITE BLOOD CELL COUNT 9.6 /CUMM (4.8-10.8)
[2016-12-31 14:35] VITALS: BP 109/60
[2016-12-31 23:05] VITALS: BP 132/60
[2017-01-01 06:47] VITALS: BP 110/72
--- NOTE | 2017-01-01 07:49 | PN- Housestaff ---
See Addendum Subjective Follow-up For: cellulitis Subjective: cellulitis improved complains of headache, most likely due to allergy, will give 1Xclaritin no other complains labs reviewed Review of Systems Constitutional: Reports: see HPI. Objective Last 24 Hrs of Vital Signs/I&O Vital Signs Date Time Temp Pulse Resp B/P B/P Pulse O2 O2 Flow FiO2 Mean Ox Delivery Rate 01/01 0647 98.6 92 18 110/72 94 Room Air 12/31 2305 98.3 85 20 132/60 97 Room Air 12/31 1435 98.0 95 20 109/60 98 Room Air Intake & Output 01/01 1600 01/01 0800 01/01 0000 Intake Total 500 480 Output Total Balance 500 480 Intake, Oral 500 480 Physical Exam General Appearance: Alert, Oriented X3, Cooperative, No Acute Distress Lungs: Clear to Auscultation, Normal Air Movement Abdomen: Normal Bowel Sounds, Soft, No Tenderness Neurological: Normal Speech Extremities: LLE still erythematous and edematous, although improved from yesterday Current Medications: Current Medications Sig/Juan Carlos Start time Last Medication Dose Route Stop Time Status Admin Acetaminophen 650 MG .STK-MED ONE 12/31 1846 DC PO 12/31 1847 Acetaminophen 650 MG Q6P PRN 12/30 0515 AC 12/31 PO 1846 Cefazolin Sodium 2,000 MG IQ8 12/31 1600 CAN IV Cefazolin Sodium 2 GM IQ8 12/31 1600 AC 01/01 N/A 1 UNIT IV 0751 Cefazolin Sodium 1,000 MG IQ8 12/30 0800 DC 12/31 IV 0812 Heparin Sodium 5,000 UNIT Q8 12/30 0600 AC 01/01 (Porcine) SC 0541 Ketorolac 15 MG Q6P PRN 12/30 0515 AC 01/01 Tromethamine IV 0541 Morphine Sulfate 4 MG Q4P PRN 12/30 0515 AC IV Ondansetron HCl 4 MG ONCE PRN 12/30 0515 AC 12/30 PO 0956 Last 24 Hrs of Lab/Davon Results Last 24 Hrs of Labs/Mics: Laboratory Tests 01/01/17 0630: Anion Gap 10, Estimated GFR > 60, BUN/Creatinine Ratio 18.8, CBC w Diff NO MAN DIFF REQ, RBC 3.99 L, MCV 79.2 L, MCH 26.1 L, RDW 15.0 H, MPV 8.2, Gran % 72.8, Lymphocytes % 18.8 L, Monocytes % 7.2, Eosinophils % 1.0, Basophils % 0.2 , Absolute Granulocytes 7.2 H, Absolute Lymphocytes 1.9, Absolute Monocytes 0.7 H, Absolute Eosinophils 0.1, Absolute Basophils 0, PUBS MCHC 33.0 Assessment/Plan Assessment: 31 y/o F with h/o Bipolar Disorder, seen in the ED 2 days ago for cellulitis of the LLE, sent out on Keflex, returns with persistent fevers, chills, nausea and vomiting. She also has a history of ?vascular insufficiency for which she had seen a vascular surgeon 2 years ago. In the ED, labs showed and elevated WBC of 11.5 and K of 3.3. She is currentl admitted to the general medicine floor for management of cellulitis. Problem List: * Cellulitis of LLE * H/O Bipolar Disorder * Microcytic Anemia Plan: * Monitor on General Medicine floor. * Continue Cefazolin * AD tmr with oral abx * Doppler of the LE done (no dvt) * DVT PPx: SubQ Heparin * Pain Pathway: Tylenol, Toradol, Ketorolac * Code Status: Full Code Problem List: 1. Cellulitis of leg, left Pain Ratin Pain Location: none Pain Goal: Remain pain free Pain Plan: mild pp Tomorrow's Labs & Rationales: none DVT/Prophylaxis: mechanical, pharmacological
[2017-01-01 08:08] LABS: ABSOLUTE BASOPHIL COUNT 0 /CUMM (0.0-0.2); ABSOLUTE EOSINOPHIL COUNT 0.1 /CUMM (0.0-0.7); ABSOLUTE GRANULOCYTE CT 7.2 /CUMM (1.4-6.5); ABSOLUTE LYMPH COUNT 1.9 /CUMM (1.2-3.4); ABSOLUTE MONOCYTE COUNT 0.7 /CUMM (0.10-0.60); BASOPHIL % 0.2 % (0.0-2.0); GRANULOCYTE % 72.8 % (42.2-75.2); HEMATOCRIT 31.6 % (37-47); MEAN CORPUSCULAR HGB 26.1 PG (27.0-31.0); MEAN CORPUSCULAR VOLUME 79.2 FL (81.0-99.0); MEAN PLATELET VOLUME 8.2 FL (7.4-10.4); PLATELET COUNT 263 /CUMM (130-400); RED BLOOD CELL CT 3.99 /CUMM (4.20-5.40); WHITE BLOOD CELL COUNT 9.9 /CUMM (4.8-10.8)
[2017-01-01 15:16] VITALS: BP 130/70
[2017-01-01 22:39] VITALS: BP 119/58
[2017-01-02 06:44] VITALS: BP 100/70
--- NOTE | 2017-01-02 07:23 | PN- Housestaff ---
JAKE ESCOBAR,[facility] 01/02/17 0723: Subjective Follow-up For: Cellulitis failed outpatient therapy Subjective: No complaints this AM Review of Systems Constitutional: Reports: see HPI. Objective Last 24 Hrs of Vital Signs/I&O Vital Signs Date Time Temp Pulse Resp B/P B/P Pulse O2 O2 Flow FiO2 Mean Ox Delivery Rate 01/02 0644 98.1 97 20 100/70 98 Room Air 01/01 2239 98.1 93 18 119/58 100 Room Air 01/01 1516 97.8 102 18 130/70 96 Room Air Intake & Output 01/02 1600 01/02 0800 01/02 0000 Intake Total 55 800 Output Total 350 Balance -295 800 Intake, IV 55 Intake, Oral 800 Output, Urine 350 Physical Exam General Appearance: Alert, Oriented X3, Cooperative, No Acute Distress Cardiovascular: Regular Rate, Normal S1, Normal S2, No Murmurs Lungs: Clear to Auscultation, Normal Air Movement Abdomen: Normal Bowel Sounds, Soft, No Tenderness Neurological: Normal Speech, Strength at 5/5 X4 Ext, Normal Tone, Sensation Intact Extremities: Left Lower extremity shows some erythema. Mild tenderness noted. Current Medications: Current Medications Sig/Juan Carlos Start time Last Medication Dose Route Stop Time Status Admin Acetaminophen 650 MG .STK-MED ONE 01/01 1311 DC PO 01/01 1312 Acetaminophen 650 MG Q6P PRN 12/30 0515 AC 01/01 PO 1310 Cefazolin Sodium 2 GM IQ8 12/31 1600 AC 01/02 N/A 1 UNIT IV 0726 Heparin Sodium 5,000 UNIT Q8 12/30 0600 AC 01/02 (Porcine) SC 0600 Ketorolac 15 MG Q6P PRN 12/30 05 AC 01/01 Tromethamine IV 1633 Loratadine 10 MG ONCE ONE 01/01 1245 DC 01/01 PO 01/01 1246 1326 Morphine Sulfate 4 MG Q4P PRN 12/30 0415 AC IV Ondansetron HCl 4 MG ONCE PRN 12/30 514 AC 12/30 PO 0956 Lines/Diet/Fluids Lines: peripheral lines Assessment/Plan Assessment: 31 y/o F with h/o Bipolar Disorder, seen in the ED 2 days ago for cellulitis of the LLE, sent out on Keflex, returns with persistent fevers, chills, nausea and vomiting. She also has a history of ?vascular insufficiency for which she had seen a vascular surgeon 2 years ago. In the ED, labs showed and elevated WBC of 11.5 and K of 3.3. She is currentl admitted to the general medicine floor for management of cellulitis. Problem List: * Cellulitis of LLE * H/O Bipolar Disorder * Microcytic Anemia Plan: * Monitor on General Medicine floor. * Continue Cefazolin for 1 more day * Patient can be discharged home tomorrow on Keflex. * DVT PPx: SubQ Heparin * Pain Pathway: Tylenol, Toradol, Ketorolac * Code Status: Full Code Problem List: 1. Cellulitis Pain Ratin Pain Location: None Pain Goal: Pain 4 or less Pain Plan: Per EMR Tomorrow's Labs & Rationales: None. Possible discharge today. DVT/Prophylaxis: pharmacological ARMAAN MULLEN MD 01/02/17 1534: Attending MD Review Statement Attending Statement Attending MD Statement: examined this patient, discuss w/resident/PA/INFORMATION BROKER, agreed w/resident/PA/INFORMATION BROKER, reviewed EMR data (avail), discussed with nursing, reviewed images Attending Assessment/Plan: Patient feels okay. She understands that her erythema is still quite considerable so we want to keep her another day on the Ancef on a higher dose. She is a 31-year-old with morbid obesity and venostasis who is here with a left lower extremity cellulitis having failed by mouth Keflex as an outpatient. At this point we'll continue the IV Ancef at 2 g every 8 hours and if clinically better will aim for discharge tomorrow. Does have a microcytic anemia which we are attributing to menstrual blood loss as she still actively menstruating. UA done on admission was also mixed with menstrual blood
[2017-01-02 14:39] VITALS: BP 128/70; BP 98/68
[2017-01-02] MEDS ORDERED: KEFLEX500 M1 PO (16:25)
[2017-01-02 22:50] VITALS: BP 140/73
[2017-01-03 06:14] VITALS: BP 117/66
--- NOTE | 2017-01-03 08:14 | PN- Housestaff ---
JAKE ESCOBAR,LAURA 01/03/17 0813: Subjective Follow-up For: Cellulitis of the LLE Subjective: Patient is sitting comfortably in bed with no complaints, she is anxious to leave today. Review of Systems Constitutional: Reports: see HPI. Objective Last 24 Hrs of Vital Signs/I&O Vital Signs Date Time Temp Pulse Resp B/P B/P Pulse O2 O2 Flow FiO2 Mean Ox Delivery Rate 01/03 614 97.9 89 20 117/66 92 Room Air 01/02 2250 98.5 90 20 140/73 99 Room Air 01/02 1439 98.7 100 20 128/70 95 Room Air Intake & Output 01/03 1600 01/03 0800 01/03 0000 Intake Total 240 600 Output Total Balance 240 600 Intake, IV Intake, Oral 240 600 Number 1 Bowel Movements Output, Urine Physical Exam General Appearance: Alert, Oriented X3, Cooperative, No Acute Distress Cardiovascular: Regular Rate, Normal S1, Normal S2, No Murmurs Lungs: Clear to Auscultation, Normal Air Movement Abdomen: Normal Bowel Sounds, Soft, No Tenderness, No Hepatospenomegaly Neurological: Normal Speech, Strength at 5/5 X4 Ext, Normal Tone, Sensation Intact Extremities: LLE shows erythema and mild tenderness, unchanged from yesterday. Current Medications: Current Medications Sig/Juan Carlos Start time Last Medication Dose Route Stop Time Status Admin Acetaminophen 650 MG .STK-MED ONE 01/02 2242 DC PO 01/02 224 Acetaminophen 650 MG Q6P PRN 12/30 0415 AC 01/02 PO 2242 Cefazolin Sodium 2 GM IQ8 12/31 1600 AC 01/03 N/A 1 UNIT IV 0804 Heparin Sodium 5,000 UNIT Q8 12/30 0600 AC 01/03 (Porcine) SC 0622 Ibuprofen 600 MG Q6P PRN 01/02 1300 AC PO Ketorolac 15 MG Q6P PRN 12/30 0515 CO 01/02 Tromethamine IV 1046 Morphine Sulfate 4 MG Q4P PRN 12/30 0515 AC IV Omeprazole 40 MG DAILY AC 01/03 0700 AC PO Ondansetron HCl 4 MG ONCE PRN 12/30 0515 AC 12/30 PO 0956 Patient Medication 1 UNIT 0700 01/03 0700 DC 01/03 Teaching ED 01/03 0701 0702 Patient Medication 1 ED .STK-MED ONE 01/[address] [facility] ED 01/02 1253 Lines/Diet/Fluids Lines: peripheral lines Assessment/Plan Assessment: 31 y/o F with h/o Bipolar Disorder, seen in the ED 2 days ago for cellulitis of the LLE, sent out on Keflex, returns with persistent fevers, chills, nausea and vomiting. She also has a history of ?vascular insufficiency for which she had seen a vascular surgeon 2 years ago. In the ED, labs showed and elevated WBC of 11.5 and K of 3.3. She is currentl admitted to the general medicine floor for management of cellulitis. Problem List: * Cellulitis of LLE * H/O Bipolar Disorder * Microcytic Anemia Plan: * Monitor on General Medicine floor. * Switch to Keflex 500 Q6 today and discharge home to complete a course of 10 days. * DVT PPx: SubQ Heparin * Pain Pathway: Tylenol, Toradol, Ketorolac * Code Status: Full Code Problem List: 1. Cellulitis Pain Ratin Pain Location: Left index finger Pain Goal: Pain 4 or less Pain Plan: Per EMR Tomorrow's Labs & Rationales: None, as the patient is to be discharged today. DVT/Prophylaxis: pharmacological LORI LEON MD 01/03/17 1245: Attending MD Review Statement Attending Statement Attending MD Statement: examined this patient, discuss w/resident/PA/BOLT MAN, agreed w/resident/PA/BOLT MAN, reviewed EMR data (avail) Attending Assessment/Plan: Agree with resident plan. Cellulitis is improving. Erythema still present near ankle but far improved from admission, and systemic symptoms have resolved. Patient may be discharged home on Cephalex, leg elevation, and outpatient follow up.
== END 2017-01-03 12:50 | DRG 603 ==
LOC: ERH 02:37 → 2NB 03:27 → ERHI 03:27 → ENRESERV 05:20 → 2NB 06:06 → ENPENDDIS 01-03 12:04 → 2NB 01-03 12:50
PROVIDERS: Emergency Medicine; Internal Medicine; Radiology Diagnostic Radiology; ADMIT Student in an Organized Health Care Education/Training Program
DX: L03.116 Cellulitis of left lower limb (principal); Z68.43 Body mass index [BMI] 50.0-59.9, adult; E66.01 Morbid (severe) obesity due to excess calories; I87.2 Venous insufficiency (chronic) (peripheral); D50.9 Iron deficiency anemia, unspecified; F31.9 Bipolar disorder, unspecified; I89.0 Lymphedema, not elsewhere classified; E87.6 Hypokalemia
CPT/HCPCS: 2NBSP; 36415; 81001; 82436; 87040; 93970; 96365; J0690; J1644; J1885; J2405; J3370

== ENCOUNTER 2017-01-20 21:57 | Inpatient (IN) | payer OTHER ==
[~2017-01-20] VITALS: Ht 180.3 cm; Wt 190.5 kg
--- NOTE | 2017-01-20 22:04 | NUR ---
PT STATES THAT SHE WAS ADMITTED HERE 2 WEEKS AGO FOR LLE CELLULITIS, FOLLOWED UP WITH IQRA VASQUEZ APRN YESTERDAY THAT ORDERED SPEACIAL DRESSINGS FOR HER OPEN AREAS ON LLE, PT STTAES THAT TODAY THERE IS INCREASED REDNESS AND DRAINAGE AND SKIN HOT TO TOUCH. CALLED PMD AND WAS TOLD TO COME TO ER. PT IS NOT ON ABT AT THIS TIME
--- NOTE | 2017-01-20 22:46 | ED UPPER/LOWER EXTREMITY COMPL ---
History of Present Illness General Chief Complaint: General Adult Stated Complaint: PT POSSIBLE CELLULITIS ON THE LEFT LEG Source: patient Exam Limitations: no limitations Vital Signs & Intake/Output Vital Signs & Intake/Output Vital Signs Date Time Temp Pulse Resp B/P B/P Pulse O2 O2 Flow FiO2 Mean Ox Delivery Rate 01/20 2200 97.4 106 18 134/78 98 Room Air Allergies Coded Allergies: NO KNOWN ALLERGIES (06/25/15) Reconcile Medications Cephalexin (Keflex) 500 MG CAPSULE 500 MG PO Q6 CELLULITIS Triage Note: PT STATES THAT SHE WAS ADMITTED HERE 2 WEEKS AGO FOR LLE CELLULITIS, FOLLOWED UP WITH IQRA VASQUEZ APRN YESTERDAY THAT ORDERED SPEACIAL DRESSINGS FOR HER OPEN AREAS ON LLE, PT STTAES THAT TODAY THERE IS INCREASED REDNESS AND DRAINAGE AND SKIN HOT TO TOUCH. CALLED PMD AND WAS TOLD TO COME TO ER. 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 EENTM: Reports: no symptoms. Respiratory: Reports: no symptoms. Cardiovascular: Reports: no symptoms. Gastrointestinal/Abdominal: Reports: no symptoms. Genitourinary: Reports: no symptoms. Musculoskeletal: Reports: no symptoms. Skin: Reports: no symptoms. Neurological/Psychological: Reports: no symptoms. Hematologic/Endocrine: Reports: no symptoms. Immunological: Reports: no symptoms. All Other Systems: Reviewed and Negative Physical Exam Physical Exam General Appearance: well developed/nourished, mild distress Head: atraumatic Eyes: Bilateral: PERRL, EOMI. Ears, Nose, Throat: normal pharynx, normal ENT inspection, hearing grossly normal Neck: normal inspection, supple Cardiovascular/Respiratory: regular rate/rhythm Back: normal inspection Skin: intact, normal color, warm/dry Lymphatic: no anterior cervical christy Departure Departure Condition: Stable Referrals: IQRA VASQUEZ APRN (PCP/Family) Departure Forms: Customer Survey General Discharge Information
--- NOTE | 2017-01-20 23:00 | NUR ---
PT TO ROOM 2. TRIAGE NOTE APPRECIATED. NO ACTIVE DRAINS NOTED ON LEFT CALF AREA. LEFT LEG WARM/RED AND SWOLLEN. LEFT PINKEY TOE FELL OFF YESTERDAY PER PT. SITE NOTE RED. NO DRAINS NOTED. AWAITING EVAL.
[2017-01-20] MEDS ORDERED: FERROUS SULFAT325 M3 PO (23:13)
[2017-01-20] MEDS ORDERED: ALEVE220 M2 PO (23:13)
[2017-01-20] MEDS ORDERED: SUDAFED PE PRE1 EAC3 PO (23:14)
--- NOTE | 2017-01-20 23:27 | ED SKIN/ALLERGY COMPLAINT ---
History of Present Illness General Chief Complaint: General Adult Stated Complaint: PT POSSIBLE CELLULITIS ON THE LEFT LEG Source: patient, old records Exam Limitations: no limitations Vital Signs & Intake/Output Vital Signs & Intake/Output Vital Signs Date Time Temp Pulse Resp B/P B/P Pulse O2 O2 Flow FiO2 Mean Ox Delivery Rate 01/200 97.4 106 18 134/78 98 Room Air ED Intake and Output 01/21 0000 01/20 1200 Intake Total Output Total Balance Patient 420 lb Weight Allergies Coded Allergies: NO KNOWN ALLERGIES (06/25/15) Reconcile Medications Ferrous Sulfate 325 MG (65 MG IRON) TABLET 1 TAB PO DAILY SUPPLEMENT ( Reported) Naproxen Sodium (Aleve) 220 MG TABLET 2 TAB PO PRN PAIN (Reported) Phenylephrine/Dm/Acetaminop/GG (Sudafed PE Pressure+Pain+Cold) 5 MG-10 MG-325 MG -100 MG TABLET 2 TAB PO PRN COLD SYMPTOMS (Reported) Triage Note: PT STATES THAT SHE WAS ADMITTED HERE 2 WEEKS AGO FOR LLE CELLULITIS, FOLLOWED UP WITH IQRA VASQUEZ APRN YESTERDAY THAT ORDERED SPEACIAL DRESSINGS FOR HER OPEN AREAS ON LLE, PT STTAES THAT TODAY THERE IS INCREASED REDNESS AND DRAINAGE AND SKIN HOT TO TOUCH. CALLED PMD AND WAS TOLD TO COME TO ER. PT IS NOT ON ABT AT THIS TIME Triage Nurses Notes Reviewed? yes Onset: Gradual Duration: constant Timing: recent history Severity: moderate Severity Numbers: 5 Location: extremities Possible Factors: no cause identified No Modifying Factors: none : No Patient currently breastfeeds: No HPI: Patient is a 31-year-old female with a past medical history of morbid obesity and a recent admission to [facility] on December 30 and discharged on January 03 for concerns of left lower extremity cellulitis in which patient states she has been complaining of a gradual onset of a 24-hour history of returning complaints of left lower leg swelling redness pain and mild purulent discharge and weeping wounds. Patient has positive chills denies any fever denies any shortness of breath chest pain, hemoptysis. (TJ WEBSTER) Past History Travel History Traveled to [place] past 21 day No Medical History Any Pertinent Medical History? 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 No (TJ WEBSTER) Review of Systems Review of Systems Constitutional: Reports: no symptoms. EENTM: Reports: no symptoms. Respiratory: Reports: no symptoms. Cardiovascular: Reports: no symptoms. GI: Reports: no symptoms. Genitourinary: Reports: no symptoms. Musculoskeletal: Reports: no symptoms. Skin: Reports: see HPI. Neurological/Psychological: Reports: no symptoms. Hematologic/Endocrine: Reports: no symptoms. Immunologic/Allergic: Reports: no symptoms. All Other Systems: Reviewed and Negative (TJ WEBSTER) Physical Exam Physical Exam General Appearance: no apparent distress, obese Head: atraumatic Eyes: Bilateral: normal appearance. Ears, Nose, Throat: hearing grossly normal Neck: normal inspection, supple, full range of motion Respiratory: normal breath sounds, chest non-tender, no respiratory distress Back: normal inspection Extremities: pedal edema Neurologic/Psych: no motor/sensory deficits, awake, alert Skin Problem Location: lower extremities Lymphatic: no anterior cervical christy Diagram Body: 1) Moderate point tenderness and erythema and warmth noted, gastrocnemius noted region of weeping discharge pedal pulse +2 dermatomes intact (TJ WEBSTER) Progress Differential Diagnosis: abscess/cellulitis, allergic reaction, erythema multiforme, urticaria, CELLULITIS, DVT Plan of Care: Orders Procedure Date/time Status LACTIC ACID 01/21 0232 Active Add-on Test (ER Only) 01/21 0134 Active LACTIC ACID 01/21 2332 Complete BLOOD CULTURE 01/20 2331 Active COMPREHENSIVE METABOLIC PANEL 01/20 2331 Complete CBC WITHOUT DIFFERENTIAL 01/20 2331 Complete Laboratory Tests 01/21/17 0005: Lactic Acid 1.0 01/21/17 0005: Anion Gap 9, Estimated GFR > 60, BUN/Creatinine Ratio 16.3, Glucose 103 H, Calcium 8.7, Total Bilirubin 0.7, AST 15, ALT 26, Alkaline Phosphatase 95, Total Protein 7.2, Albumin 3.7, Globulin 3.5, Albumin/Globulin Ratio 1.1, CBC w Diff NO MAN DIFF REQ, RBC 3.70 L, MCV 78.1 L, MCH 26.2 L, RDW 15.6 H, MPV 7.7, Gran % 88.3 H, Lymphocytes % 8.0 L, Monocytes % 3.3, Eosinophils % 0.2, Basophils % 0.2, Absolute Granulocytes 10.2 H, Absolute Lymphocytes 0.9 L, Absolute Monocytes 0.4, Absolute Eosinophils 0, Absolute Basophils 0, PUBS MCHC 33.5 Microbiology 01/21 0020 BLOOD: Blood Culture - RECD 01/21 0005 BLOOD: Blood Culture - RECD Discussed hand off with Dr. Martinez PT is receiving cefazolin IV Blood cultures pending labs currently are pending (TJ WEBSTER) Hand-Off Endorsed To: TEJAL MARTINEZ MD Endorsed Time: 36 Pending: labs (TJ WEBSTER) Departure Departure Disposition: STILL A PATIENT Condition: Stable Referrals: IQRA VASQUEZ APRN (PCP/Family) Departure Forms: Customer Survey General Discharge Information (TJ WEBSTER) Departure Clinical Impression Primary Impression: Cellulitis of leg, left Secondary Impressions: Lymphedema Admission Note Spoke With: NILTON BOLDEN MD Documentation of Exam: Documentation of any treatments & extenuating circumstances including Concerns Regarding Discharge (functional status, medication knowledge or non-compliance, living conditions, etc.) that warrant an admission rather than observation: PT WITH MARKED CHRONIC LYMPHEDEMA, WITH SIGNIFICANT RUBOR/CALOR/DOLOR OF LEFT LOWER EXTREMITY, EXTENDING FROM HER FOOT TO HER KNEE... ALSO WARMTH EXTENDING INTO THIGH. I DOUBT NECROTIZING FASCIITIS, BUT GIVEN HER LYMPHEDEMA AND EXTENT OF HER ERYTHEMA/TENDERNESS, SHE MERITS IV ABX. IF NOT IMPROVED IN AM, WOULD CONSIDER BROADENING TO VANCOMYCIN. WOULD ALSO CHECK U/S IN AM. PA/GEAR HOBBER OPERATOR Co-Sign Statement Statement: ED Attending supervision documentation- [X] I saw and evaluated the patient. I have also reviewed all the pertinent lab results and diagnostic results. I agree with the findings and the plan of care as documented in the PA's/GEAR HOBBER OPERATOR's documentation. [] I have reviewed the ED Record and agree with the PA's/GEAR HOBBER OPERATOR's documentation. [] Additions or exceptions (if any) to the PAs/GEAR HOBBER OPERATOR's note and plan are summarized below: [] (FUNMI ESCOBAR,TEJAL Haile)
--- NOTE | 2017-01-20 23:28 | NUR ---
VINNY FERNÁNDEZ AT BEDSIDE EVALUATING THE PT.
[2017-01-21 00:22] LABS: ABSOLUTE BASOPHIL COUNT 0 /CUMM (0.0-0.2); ABSOLUTE EOSINOPHIL COUNT 0 /CUMM (0.0-0.7); ABSOLUTE GRANULOCYTE CT 10.2 /CUMM (1.4-6.5); ABSOLUTE LYMPH COUNT 0.9 /CUMM (1.2-3.4); ABSOLUTE MONOCYTE COUNT 0.4 /CUMM (0.10-0.60); BASOPHIL % 0.2 % (0.0-2.0); EOSINOPHIL % 0.2 % (0-5); HEMATOCRIT 28.9 % (37-47); MEAN CORPUSCULAR HGB 26.2 PG (27.0-31.0); MEAN CORPUSCULAR HGB CONC 33.5 G/DL (33.0-37.0); MEAN CORPUSCULAR VOLUME 78.1 FL (81.0-99.0); MEAN PLATELET VOLUME 7.7 FL (7.4-10.4); PLATELET COUNT 260 /CUMM (130-400); RBC DISTRIBUTION WIDTH 15.6 % (11.5-14.5); WHITE BLOOD CELL COUNT 11.5 /CUMM (4.8-10.8)
[2017-01-21 00:42] LABS: GRANULOCYTE % 88.3 % (42.2-75.2)
--- NOTE | 2017-01-21 00:48 | NUR ---
IV CEFAZOLIN ORDERED.
--- NOTE | 2017-01-21 01:19 | NUR ---
PT VOMITED SMALL ABOUT OF WATERY VOMITUS. C/O LEFT ANKLE PAIN. MEDICATED WITH ZOFRAN AND TORADOL IVP ORDERED.
--- NOTE | 2017-01-21 02:25 | NUR ---
ZOFRAN AND TORADOL EFFECTIVE. NO C/O NAUSEA AND VOMTING. LEFT ANKLE PAIN DOWN TO 4/10.
--- NOTE | 2017-01-21 02:26 | History & Physical ---
FABRICE KEY 01/21/17 0225: General Information and HPI MD Statement: I have seen and personally examined CRISPIN CERDA and documented this H&P. The patient is a 31 year old F who presented with a patient stated chief complaint of increasing redness of left lower extremity. Source of Information: patient Exam Limitations: no limitations History of Present Illness: Ms Cerda is a 31-year-old woman who was known to be in her usual state of health until 7 days ago. She has a past history of multiple hospitalizations for lower extremity cellulitis, recent 01/04/2016 for left lower extremity cellulitis treated with Keflex. She came to [place] [facility] with a chief concern of worsening redness, drainage, pain of left lower extremity 7 days. As per the patient, she was asymptomatic for over a week after she completed the course of antibiotics as prescribed at the time of discharge for lower extremity cellulitis. Reported injury of left toenail , resulting in loss of skin integrity, approximately 7 days ago; she also noticed blistering of skin, dorsal side of left leg, noted serous discharge. Has seen the primary care physician, who recommended dressing change it regularly. Also noted redness, swelling, tenderness of left lower extremity in the last few days, which prompted the patient to seek medical attention at the emergency room. Also reported chills, myalgias, symptoms suggestive of upper respiratory tract infection times one day. Reported vomiting 1 this a.m. no intravenous drug use. Allergies/Medications Allergies: Coded Allergies: NO KNOWN ALLERGIES (06/25/15) Home Med list Ferrous Sulfate 325 MG (65 MG IRON) TABLET 1 TAB PO DAILY SUPPLEMENT ( Reported) Naproxen Sodium (Aleve) 220 MG TABLET 2 TAB PO PRN PAIN (Reported) Phenylephrine/Dm/Acetaminop/GG (Sudafed PE Pressure+Pain+Cold) 5 MG-10 MG-325 MG -100 MG TABLET 2 TAB PO PRN COLD SYMPTOMS (Reported) Past History Travel History Traveled to [place] past 21 day No Medical History Neurological: NONE EENT: sinusitis Cardiovascular: NONE Respiratory: ASTHMA LIKE SYMPTOMS WHEN SICK Gastrointestinal: NONE Hepatic: NONE Renal: NONE Musculoskeletal: NONE Psychiatric: NONE Endocrine: NONE Blood Disorders: NONE Cancer(s): NONE 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 yes Functional Ability ADLs Independent: dressing, eating, toileting, bathing. Ambulation: independent IADLs Independent: shopping, housework, finances, food prep, telephone, transportation , medication admin. Employment History Employment Employed Review of Systems Review of Systems Constitutional: Reports: see HPI, chills. Denies: fever. EENTM: Denies: double vision. Cardiovascular: Reports: peripheral edema. Denies: chest pain. Respiratory: Denies: cough, short of breath. GI: Denies: abdominal pain, melena. Genitourinary: Denies: hematuria. Musculoskeletal: Denies: back pain. Skin: Denies: change in skin color. Neurological/Psychological: Denies: anxiety. Hematologic/Endocrine: Reports: bruising. Denies: bleeding. Exam & Diagnostic Data Last 24 Hrs of Vital Signs/I&O Vital Signs Date Time Temp Pulse Resp B/P B/P Pulse O2 O2 Flow FiO2 Mean Ox Delivery Rate 01/21 0247 101.4 06/ 0236 101.4 108 20 114/61 95 Room Air 06/ 2200 97.4 106 18 134/78 98 Room Air Intake & Output 03 0800 06/03 0000 06/ 1600 Intake Total Output Total Balance Patient 420 lb Weight Physical Exam General Appearance Alert, Oriented X3, Cooperative, No Acute Distress Skin erythema and tenderness of left lower extremity extending from left ankle to left thigh region. ulcers on the dorsal side of left leg ( area of calf) size 6 cm x 10 cm with serous discharge. , erythema of left fifth toe Skin Temp/Moisture Exam: Warm/Dry Sepsis Skin Exam (color): Normal for Ethnicity, Flushed HEENT Atraumatic, PERRLA, EOMI, Mucous Membr. moist/pink Neck Supple, No JVD, No thryomegaly Lymphatic Cervical nl Cardiovascular Regular Rate, Normal S1, Normal S2 Lungs Normal Air Movement Abdomen Normal Bowel Sounds, Soft, No Tenderness, No Hepatospenomegaly Neurological Normal Speech, Strength at 5/5 X4 Ext, Normal Tone, Sensation Intact, Cranial Nerves 3-12 NL, Reflexes 2+ Extremities No Cyanosis, No Edema, Normal Pulses, No Tenderness/Swelling Vascular Normal Pulses Sepsis Peripheral Pulse Location: Dorsalis Pedis Sepsis Peripheral Pulse Exam: Normal Body Front and Back (Adult) 1) erythema and tenderness 2) multiple ulcers 3) tenderness of left fifth toe Assessment/Plan Assessment: She is an young woman with a past history of multiple hospital admissions for the treatment of lower extremity cellulitis likely due to venous insufficiency/ anatomic changes. At the time of admission, vitals-temperature 97.4, pulse rate 106, respiration 18, blood pressure 134/78, pulse ox 98% on room air. Lab findings indicated WBC 11.5, hemoglobin 9.7 (baseline 10.8) iron studies revealed low iron and ferritin with normal TIBC, platelets 260. Normal electrolytes, renal function and liver function was noted. Lactic acid 1.0. C-reactive protein 4.0 (elevated). Glucose 103. Differential diagnosis: #1 left lower extremity cellulitis #2 rule out DVT Below is the problem list and plan: #1 left lower extremity swelling, redness, and tenderness-likely due to left lower extremity cellulitis. The patient showed improvement upon treatment with Keflex. It would be prudent to continue the same antibiotic in order to avoid any resistance. If the patient does not respond to cefazolin, antibiotic coverage could be broadened. Follow blood cultures. Follow lactate. Follow venous Doppler left lower extremity. Follow resolution of erythema or time. Left lower extremity leg elevation. Pain management with Tylenol and NSAID. #2 high BMI-nutrition consult could be obtained. Check HbA1c, although glucose was normal. Check TSH. #3 DVT prophylaxis-pharmacological. As Ranked By This Provider Problem List: 1. Cellulitis of leg, left Core Measures/Miscellaneous Acute Coronary Syndrome ACS Diagnosis: No Cerebrovascular Accident CVA/TIA Diagnosis: No Congestive Heart Failure CHF Diagnosis: No Venous Thromboembolism VTE Risk Factors: Age > 40 No [facility] VTE prophylaxis d/t: No contraindications No VTE Pharm Prophylaxis d/t: No contraindications VTE Diagnosis: No VTE Type: NONE VTE Confirmed by (Test): NONE Severe Sepsis Severe Sepsis Present: No Septic Shock Septic Shock Present: No Miscellaneous Documentation Attending Case Discussed With: NILTON BOLDEN MD Primary Care Physician: IQRA VASQUEZ APRN Patient sees these Specialists none Level of Patient Care: General Medicine [facility] COLLINS [facility] 01/21/17 0308: Resident Review Statement Resident Statement: examined this patient, discussed with applications intern, agreed with applications intern Other Findings: Ms Cerda is a 31 year old woman with a past history of multiple hospitalizations for lower extremity cellulitis. Most recent admission for cellulitis was on and she was treated successfully with IV cefazolin and discharged with PO Keflex to complete 10 days therapy. Her symptoms completely resolved for over a week. She now comes to [place] ER with a chief compaint of worsening redness, pain, clear drainage, and pain of her left leg for the past 7 days. She also developed a fever, chills and myalgia 1 day ago and vomitted a few hours ago. Vital signs in the ER: Temperature 97.4F, pulse rate 106 bpm, respiration 18/min , blood pressure 134/78 mmhg, pulse ox 98% on room air. Physical Exam General Appearance: Alert, Oriented X3, Cooperative, No Acute Distress, morbidly obese Skin: erythema and tenderness of left lower extremity extending from left ankle to just below the left knee. Ulcers on the calf region oozing serous fluid Skin Temp/Moisture Exam: Warm/Dry Sepsis Skin Exam (color): Normal for Ethnicity, Flushed HEENT: Atraumatic, PERRLA, EOMI, Mucous Membr. moist/pink Neck: Supple, No JVD, No thryomegaly Lymphatic: Cervical nl Cardiovascular: Regular Rate, Normal S1, Normal S2 Lungs: Normal Air Movement Abdomen: Normal Bowel Sounds, Soft, No Tenderness, No Hepatospenomegaly Neurological: Normal Speech, Strength at 5/5 X4 Ext, Normal Tone, Sensation Intact, Cranial Nerves 3-12 NL, Extremities: No Cyanosis, No Edema, Normal Pulses, No Tenderness/Swelling Vascular: Normal Pulses Sepsis: Peripheral Pulse Location: Dorsalis Pedis Sepsis: Peripheral Pulse Exam: Normal Significant labs: CBC: WBC 11.5, Hemoglobin 9.7, platelets 260. BEP: Normal electrolytes. Lactic acid 1.0. C-reactive protein 4.0, Glucose 103. Of note, patient had a normal doppler ultrasound of her leg Problem list 1. Left lower extremity cellulitis (Recurrent) 2. History of lower extremity venous insufficiency 3. Morbid obesity Plan Admit to [facility] Blood culturesX2, urinalysis Start IV cefazolin 1 g Q 8 hrs Elevate leg on pillows hydration with IV normal saline at 75 cc/hr Pain control with Po tylenol 650 mg Q6 hrs PRN for mild pain or fever IV morphine 4 mg Q 6 hrs PRN for moderate to severe pain Check creatinine kinase DVT prophylaxis with SC lovenox 40 mg dailys Code status is full code NILTON BOLDEN 01/21/17 0356: Attending MD Review Statement Attending Statement Attending MD Statement: examined this patient, discuss w/resident/PA/OILER AND GREASER, agreed w/resident/PA/OILER AND GREASER, reviewed EMR data (avail), reviewed images, amended to note Attending Assessment/Plan: Cc: Left leg swelling, pain, redness PMH: Morbid obesity, venous insufficiency Patient came to ER for worsening redness, pain, swelling of left lower extremity. Patient was recently admitted and discharged for cellulitis on January 03 and completed total 10 days of antibiotics for cellulitis. Patient was symptomatically better, redness had improved but swelling was persistent. She developed some vesicles on posterior aspect of cough which opened up and she had denuded skin with some serous discharge but then approximately 1 week back patient had trauma to left fifth toe, and today she noticed increased redness and skin felt hot so she came to ER. She also has some allergies, cough and cold which she does not complain much about. Denies sore throat, difficulty swallowing. She endorses some chills and feeling hot with muscle aches but does not know if she had fever at home. She had one episode of vomiting today. Vitals: Tmax 101.4, heart rate 108, RR 20, blood pressure 114/61, saturating well on room air On exam: A O 3, cooperative, morbidly obese, no acute distress, neck supple, JVD normal, no lymphadenopathy, no sinus tenderness, chronically enlarged tonsils without inflammation or pharyngeal congestion, mucosa moist, no focal neurological deficit, no dependent edema, cellulitis left lower extremity with denuded skin on posterior aspect of cough, broken fifth toenail, no obvious fluctuation or discharge. CVS: S1-S2, RRR. RS: Clear to auscultate bilaterally. Abdomen: Soft, NT, ND, bowel sounds present. Labs: WBC 11.5, neutrophils 88%, hemoglobin 9.7, BMP, LFT unremarkable, lactate 1.0, CRP 4.1, ESR 68. A and P 31-year-old morbidly obese female with a past medical history significant for venous insufficiency, not evaluated in recent past presented with recurrent cellulitis. Patient was recently admitted on December 30 and discharged on January 03 with completed 10 days antibiotic for cellulitis including cefazolin followed by Keflex. Patient was symptomatically better in interim then developed redness, swelling, pain again, and left lower extremity after recent trauma, redness is marked. No obvious discharge but there is denuded skin on the posterior aspect of calf. No other source of infection found patient has mild cough but no obvious pharyngeal congestion. + Left lower extremity cellulitis + Morbid obesity, venous insufficiency - Admit to general medicine - Gentle hydration - Continue IV cefazolin - Pain control - DVT prophylaxis with Lovenox - Trend lactate - Patient had recent DVT Doppler on December 30 which was negative for DVT - Patient has anemia, but almost always checked been having acute infection, suggested to follow-up outpatient. She was recently prescribed ferrous sulfate which she started yesterday. She denies menorrhagia, melena or any chronic GI bleed.
--- NOTE | 2017-01-21 02:36 | NUR ---
Emergency Dept UC Admit Note: To be admitted to [facility] by DR. BOLDEN with CELLULITIS OF LT LEG as the diagnosis, to 2NB #[id number] location. Nursing Telecom Coordinator and admitting notified 01/21/17 at 0204
--- NOTE | 2017-01-21 02:41 | NUR ---
TYLENOL 650MG PO GIVEN PER VERBAL ORDER FROM HOUSE STAFF FOR TEMPERATURE 101.4. COLD COMPRESSION APPLIED ON FOREHEAD.
--- NOTE | 2017-01-21 02:43 | NUR ---
ATTEMPTED TO CALL REPORT. RN WILL CALL BACK.
--- NOTE | 2017-01-21 03:24 | NUR ---
CRISPIN CERDA Nurse Note by: MELVIN VANCE I agree with the SENIOR SOFTWARE DEVELOPMENT MANAGER findings/evaluation of this patient's condition. Entered by: MELVIN VANCE Date: 01/21/17 Time: 0324
[2017-01-21 03:56] VITALS: BP 104/62
--- NOTE | 2017-01-21 03:57 | Admission Certification ---
Admission Certification Certification Statement - As attending physician, I certify that at the time of - admission, based on clinical presentation, severity of - symptoms, need for further diagnostic testing and - therapeutic interventions, and risk of adverse outcomes - without in-hospital treatment, in my clinical assessment, - this patient requires an acute hospital stay for a minimum - of two nights or longer. I have also considered psychsocial - factors such as support system, advanced age, financial - issues, cognitive issues, and failed out-patient treatments, - past re-admission history, safety of patient, and lack of - compliance as applicable. Specific rationale supporting this admission is: Left lower extremity cellulitis
--- NOTE | 2017-01-21 04:55 | NUR ---
NURSING NOTE\; LATE ENTRY. PT ARRIVED TO FLOOR FROM ED BY STRETCHER. VITAL SIGNS: T: 99.9, PT RECEIVED TYLENOL HALF AN HOUR PRIOR TO ARRIVAL TO FLOOR, HR 113, 02: 94% ON ROOM AIR, RR: 22, LABORED BREATHING NOTED, BP: 104/62. PT A&OX3, OOB INDEPENDENTLY, HAT IN BATHROOM. ORDER FOR BEDREST AT THIS TIME. PT C/O PROD COUGH W/CLEAR SPUTUM. MUCINEX ORDERED AND GIVEN. CELLULITIS TO LLE REDDENED AND SWOLLEN, ELEVATED ON PILLOWS, SITE MARKED. L LEG PINKY TOE IS PINKISH/REDDISH IN COLOR. NO OPEN AREAS NOTED ON PTS SKIN. IV FLUIDS RUNNING AT 75 ML/HR. PT C/O PAIN 5/10 IN HER LLE. IV TORADOL GIVEN. PT SHOWN HOW TO USE CALL LIGHT SYSTEM. INFO PACKET GIVEN. AWAIT FURTHER ORDERS FROM MD. WILL CONTINUE TO MONITOR.
[2017-01-21 06:48] VITALS: BP 105/59
--- NOTE | 2017-01-21 07:39 | NUR ---
NURSING NOTE: PT HR 112. RENATA ESCOBAR MADE AWARE. NO EKG ORDERED. STATES TO MONITOR PTS HR DURING THE DAY AND IF SHE IS STILL TACHY AN EKG WILL BE ORDERED. PT DENIES SYMPTOMS. WILL CONTINUE TO MONITOR.
--- NOTE | 2017-01-21 12:16 | NUR ---
PT OFF FLOOR FOR ULTRASOUND OF LT LEG
--- NOTE | 2017-01-21 12:31 | NUR ---
PT RETURNED TO FLOOR FROM US
--- NOTE | 2017-01-21 13:02 | ULTRASOUND REPORT ---
EXAMINATION: US TRIPLEX LOWER EXTREMITY, LEFT CLINICAL INFORMATION: LLE edema, pain, tenderness COMPARISON: None TECHNIQUE: Color-flow triplex imaging with spectral analysis and compression Doppler were performed on the lower extremity. FINDINGS: Respiratory variation, normal compression and augmented flow are noted throughout the left lower extremity. The visualized common femoral vein, superficial femoral vein, profunda femoral vein, popliteal vein and midcalf peroneal and posterior tibial venous segments show no evidence of deep venous thrombosis. There is no Simmons's cyst. IMPRESSION: Normal triplex scan without evidence of deep venous thrombosis involving the lower extremity.
[2017-01-21 15:50] VITALS: BP 126/68
--- NOTE | 2017-01-21 17:57 | PN- Att Addend ---
Attending Addendum Attending Brief Note Laboratory Tests 01/21/17 0232: Lactic Acid Cancelled 01/21/17 0200: ESR Westergren 68 H 01/21/17 0005: Lactic Acid 1.0 01/21/17 0005: Anion Gap 9, Estimated GFR > 60, BUN/Creatinine Ratio 16.3, Glucose 103 H, Calcium 8.7, Total Bilirubin 0.7, AST 15, ALT 26, Alkaline Phosphatase 95, C- Reactive Prot, Quant 4.1 H, Total Protein 7.2, Albumin 3.7, Globulin 3.5, Albumin/Globulin Ratio 1.1, CBC w Diff NO MAN DIFF REQ, RBC 3.70 L, MCV 78.1 L , MCH 26.2 L, RDW 15.6 H, MPV 7.7, Gran % 88.3 H, Lymphocytes % 8.0 L, Monocytes % 3.3, Eosinophils % 0.2, Basophils % 0.2, Absolute Granulocytes 10.2 H, Absolute Lymphocytes 0.9 L, Absolute Monocytes 0.4, Absolute Eosinophils 0, Absolute Basophils 0, PUBS MCHC 33.5 Vital Signs Date Time Temp Pulse Resp B/P B/P Pulse O2 O2 Flow FiO2 Mean Ox Delivery Rate 01/21 1722 100.7 / 1550 97.6 99 18 126/68 100 Room Air / 1120 101.1 / 1100 101.1 / 0648 99.5 112 20 105/59 96 / 0413 99.9 / 0356 99.9 113 22 104/62 94 Room Air / 0300 94 Room Air / 0247 101.4 / 0236 101.4 108 20 114/61 95 Room Air / 2200 97.4 106 18 134/78 98 Room Air 31-year-old female with past medical history of morbid obesity and the cellulitis in the lower extremity is admitted with recurrent cellulitis of both lower extremities. Patient does have underlying venous insufficiency. Ultrasound of the lower extremity done today showed no DVT. Continue her on IV antibiotics with IV cefazolin for now. We will see how she does then we will switch her to by mouth antibiotics at the time of discharge. Patient will benefit from referral to bariatric surgery at the time of discharge. Discussed with patient weight loss options.
[2017-01-21 22:29] VITALS: BP 100/50
[2017-01-22 06:52] VITALS: BP 126/69
--- NOTE | 2017-01-22 08:12 | PN- Housestaff ---
Subjective Follow-up For: Left lower extremity cellulitis Complaints: pain scale (0-10) Subjective: Patient was seen and examined this morning. She is alert awake and oriented to time place and person. Overnight she spiked temperature 100.3 twice. Received IV Tylenol. Patient reports redness, swelling of left lower extremity associated with pain. Minimal relief with ketorolac Denied any chills. Denied any chest pain, racing of heart, headache. Patient reports a dry cough. Vitals were stable this morning Review of Systems Constitutional: Reports: fever. Denies: chills, diaphoresis, malaise, weakness. Objective Last 24 Hrs of Vital Signs/I&O Vital Signs Date Time Temp Pulse Resp B/P B/P Pulse O2 O2 Flow FiO2 Mean Ox Delivery Rate 01/22 0800 98.4 / 0701 100.3 / 0652 100.3 90 20 126/69 92 / 2229 93 20 100/50 96 Room Air 01/21 2100 98.4 01/21 1907 100.3 01/21 1722 100.7 /03 1550 97.6 99 18 126/68 100 Room Air /03 1120 101.1 /03 1100 101.1 Intake & Output 01/22 1600 /04 0800 01/22 0000 Intake Total 850 675 Output Total 875 Balance 850 -200 Intake, IV 600 225 Intake, Oral 250 450 Output, Urine 875 Physical Exam General Appearance: Alert, Oriented X3, Cooperative, No Acute Distress Skin: LEFT LOWER EXTREMITY ERYTHEMA, SWELLING, TENDERNESS, NON OOZING WOUNDS HEENT: Atraumatic, PERRLA, EOMI, Mucous Membr. moist/pink Neck: Supple, No JVD Lymphatic: Cervical nl Cardiovascular: Normal S1, Normal S2 Lungs: Normal Air Movement Abdomen: Normal Bowel Sounds, Soft, No Tenderness Extremities: No Clubbing, No Cyanosis Vascular: Normal Pulses Current Medications: Current Medications Sig/Juan Carlos Start time Last Medication Dose Route Stop Time Status Admin Acetaminophen 650 MG Q6P PRN 01/21 0300 AC 01/22 PO 0701 Cefazolin Sodium 1,000 MG Q8H 01/21 0900 AC 01/22 IV 0856 Enoxaparin Sodium 40 MG DAILY 01/21 1000 AC 01/22 SC 0903 Guaifenesin 10 ML Q4P PRN 01/22 1030 AC PO Guaifenesin 600 MG Q12 01/21 1000 AC 01/22 PO 0858 Hydromorphone HCl 2 MG .STK-MED ONE 01/22 2152 DC IM 01/21 2153 Ketorolac 15 MG Q6P PRN 01/21 0300 AC 01/22 Tromethamine IV 0556 Sodium Chloride 1,000 ML Q13H 01/21 0245 AC 01/22 IV 0556 Last 24 Hrs of Lab/Davon Results Last 24 Hrs of Labs/Mics: Laboratory Tests 01/22/17 0728: Anion Gap 8, Estimated GFR > 60, BUN/Creatinine Ratio 15.0, CBC w Diff NO MAN DIFF REQ, RBC 3.23 L, MCV 79.7 L, MCH 26.6 L, RDW 15.5 H, MPV 8.1, Gran % 81.6 H, Lymphocytes % 12.6 L, Monocytes % 5.5, Eosinophils % 0.2, Basophils % 0.1, Absolute Granulocytes 6.1, Absolute Lymphocytes 0.9 L, Absolute Monocytes 0.4, Absolute Eosinophils 0, Absolute Basophils 0, PUBS MCHC 33.4 Assessment/Plan Assessment: She is an young woman with a past history of multiple hospital admissions for the treatment of lower extremity cellulitis likely due to venous insufficiency/ anatomic changes. At the time of admission, vitals-temperature 97.4, pulse rate 106, respiration 18, blood pressure 134/78, pulse ox 98% on room air. Lab findings indicated WBC 11.5, hemoglobin 9.7 (baseline 10.8) iron studies revealed low iron and ferritin with normal TIBC, platelets 260. Normal electrolytes, renal function and liver function was noted. Lactic acid 1.0. C-reactive protein 4.0 (elevated). Glucose 103. Differential diagnosis: #1 left lower extremity cellulitis #2 rule out DVT Below is the problem list and plan: #1 cellulitis left lower extremity * left lower extremity swelling, redness, and tenderness-likely due to left lower extremity cellulitis. * The patient showed improvement upon treatment with Keflex. It would be prudent to continue the same antibiotic in order to avoid any resistance. * We'll continue Keflex day2 * Follow blood cultures. * Follow lactate- NEG. * Follow venous Doppler left lower extremity- NEG. * Left lower extremity leg elevation. * Pain management with Tylenol and NSAID. * Adequate hydration * monitor for fever, chills * Monitor WBC count * Monitor for worsening redness, swelling, pain left lower extremity #2 high BMI- nutrition consult could be obtained. Check HbA1c, although glucose was normal. Check TSH. #3 DVT prophylaxis- pharmacological. Problem List: 1. Cellulitis of leg, left Pain Ratin Pain Location: left lower ext Pain Goal: Remain pain free Pain Plan: torodal Tomorrow's Labs & Rationales: cbc
[2017-01-22 08:26] LABS: ABSOLUTE BASOPHIL COUNT 0 /CUMM (0.0-0.2); ABSOLUTE EOSINOPHIL COUNT 0 /CUMM (0.0-0.7); ABSOLUTE GRANULOCYTE CT 6.1 /CUMM (1.4-6.5); ABSOLUTE LYMPH COUNT 0.9 /CUMM (1.2-3.4); ABSOLUTE MONOCYTE COUNT 0.4 /CUMM (0.10-0.60); BASOPHIL % 0.1 % (0.0-2.0); EOSINOPHIL % 0.2 % (0-5); GRANULOCYTE % 81.6 % (42.2-75.2); HEMATOCRIT 25.7 % (37-47); MEAN CORPUSCULAR HGB 26.6 PG (27.0-31.0); MEAN CORPUSCULAR HGB CONC 33.4 G/DL (33.0-37.0); MEAN CORPUSCULAR VOLUME 79.7 FL (81.0-99.0); MEAN PLATELET VOLUME 8.1 FL (7.4-10.4); PLATELET COUNT 167 /CUMM (130-400); RBC DISTRIBUTION WIDTH 15.5 % (11.5-14.5); RED BLOOD CELL CT 3.23 /CUMM (4.20-5.40); WHITE BLOOD CELL COUNT 7.4 /CUMM (4.8-10.8)
[2017-01-22 14:46] VITALS: BP 110/62
--- NOTE | 2017-01-22 15:45 | PN- Att Addend ---
Attending MD Review Statement Attending Statement Attending MD Statement: examined this patient, discuss w/resident/PA/MARKETING SERVICES VICE PRESIDENT, agreed w/resident/PA/MARKETING SERVICES VICE PRESIDENT, reviewed EMR data (avail), discussed w/nursing Attending Assessment/Plan: Laboratory Tests 01/22/17 0728: Anion Gap 8, Estimated GFR > 60, BUN/Creatinine Ratio 15.0, CBC w Diff NO MAN DIFF REQ, RBC 3.23 L, MCV 79.7 L, MCH 26.6 L, RDW 15.5 H, MPV 8.1, Gran % 81.6 H, Lymphocytes % 12.6 L, Monocytes % 5.5, Eosinophils % 0.2, Basophils % 0.1, Absolute Granulocytes 6.1, Absolute Lymphocytes 0.9 L, Absolute Monocytes 0.4, Absolute Eosinophils 0, Absolute Basophils 0, PUBS MCHC 33.4 Vital Signs Date Time Temp Pulse Resp B/P B/P Pulse O2 O2 Flow FiO2 Mean Ox Delivery Rate 01/22 1446 98.1 88 20 110/62 97 Room Air / 0800 98.4 / 0800 Room Air / 0701 100.3 06/04 0652 100.3 90 20 126/69 92 06/03 2229 93 20 100/50 96 Room Air 06/03 2100 98.4 06/03 1907 100.3 06/03 1722 100.7 06/03 1550 97.6 99 18 126/68 100 Room Air Patient seen and examined at bedside. Discussed with patient the care plan. Patient had low-grade fever of 100.3 this a.m. Her white count is down to 7.4. Her redness in the lower extremity is better. We will continue with IV antibiotics for now and if she continues to improved tomorrow and discharge on by mouth antibiotics. Explained to the patient the importance of leg elevation especially at night when sleeping and also we will give her referral to bariatric surgery at the time of discharge.
[2017-01-22 22:52] VITALS: BP 133/85
[2017-01-23 06:50] VITALS: BP 111/76
--- NOTE | 2017-01-23 07:21 | PN- Housestaff ---
ORVILLE ESCOBAR,RENÉ 01/23/17 0721: Subjective Follow-up For: Recurrent cellulitis, bilateral lower extremity Complaints: cough and postnasal drip Subjective: Patient is seen and examined at the bedside. She was feeling much improvement than before. She thinks her cellulitis has been decreased. She was complaining of occasional cough. Review of Systems Constitutional: Reports: no symptoms. Respiratory: Reports: cough. Skin: Reports: erythema. Objective Last 24 Hrs of Vital Signs/I&O Vital Signs Date Time Temp Pulse Resp B/P B/P Pulse O2 O2 Flow FiO2 Mean Ox Delivery Rate 01/23 1200 Room Air Room Air / 1158 99 Room Air / 0650 98.3 76 20 111/76 94 / 2252 98.5 85 20 133/85 98 Room Air Intake & Output 01/23 1600 01/23 0800 06/ 0000 Intake Total 600 Output Total 200 1000 Balance 400 -1000 Intake, IV 600 Output, Urine 200 1000 Physical Exam General Appearance: Alert, Oriented X3, Cooperative, No Acute Distress, morbidly obese Skin: bilateral lower extremity erythema Cardiovascular: Normal S1, Normal S2 Lungs: Clear to Auscultation, Normal Air Movement Abdomen: Soft, No Tenderness Extremities: bilateral lower extremity erythema and edema Vascular: cannot be palpated due to edema Current Medications: Current Medications Sig/Juan Carlos Start time Last Medication Dose Route Stop Time Status Admin Acetaminophen 650 MG .STK-MED ONE 01/23 0326 DC PO 01/23 0327 Acetaminophen 650 MG .STK-MED ONE 01/22 1918 DC PO 01/22 1919 Acetaminophen 650 MG Q6P PRN 01/21 0300 DCD 01/23 PO 1238 Albuterol Sulfate 3 ML Q6-PRN PRN 01/23 1200 DCD 01/23 INH 1156 Cefazolin Sodium 1,000 MG Q8H 01/21 0900 DC 06/ IV 0319 Cephalexin 500 MG Q6 / 1200 DCD 06/ PO 1238 Enoxaparin Sodium 40 MG DAILY 01/21 1000 DCD 06/ SC 1105 Guaifenesin 10 ML Q4P PRN / 1030 DCD 06/ PO 1229 Guaifenesin 600 MG Q12 / 1000 DCD 06/ PO 1105 Ketorolac 15 MG Q6P PRN 01/21 0300 DC 01/22 Tromethamine IV 1617 Patient Medication 1 ED .STK-MED ONE 01/23 1410 GA Teaching ED 01/23 1411 Sodium Chloride 1,000 ML Q13H 01/21 0245 DC 01/22 IV 1918 Last 24 Hrs of Lab/Davon Results Last 24 Hrs of Labs/Mics: Laboratory Tests 01/23/17 0630: CBC w Diff NO MAN DIFF REQ, RBC 3.10 L, MCV 79.9 L, MCH 26.7 L, RDW 15.6 H, MPV 8.0, Gran % 65.5, Lymphocytes % 24.9, Monocytes % 6.6, Eosinophils % 2.7, Basophils % 0.3, Absolute Granulocytes 3.6, Absolute Lymphocytes 1.4, Absolute Monocytes 0.4, Absolute Eosinophils 0.1, Absolute Basophils 0, PUBS MCHC 33.4 Assessment/Plan Assessment: She is an young woman with a past history of multiple hospital admissions for the treatment of lower extremity cellulitis likely due to venous insufficiency/ anatomic changes. At the time of admission, vitals-temperature 97.4, pulse rate 106, respiration 18, blood pressure 134/78, pulse ox 98% on room air. Lab findings indicated WBC 11.5, hemoglobin 9.7 (baseline 10.8) iron studies revealed low iron and ferritin with normal TIBC, platelets 260. Normal electrolytes, renal function and liver function was noted. Lactic acid 1.0. C-reactive protein 4.0 (elevated). Glucose 103. Plan - Discharge today #1 cellulitis left lower extremity * left lower extremity swelling, redness, and tenderness-likely due to left lower extremity cellulitis. * We will discharge patient on tablet Keflex 500 every 6 hourly for total 10 days * Follow blood cultures shows no any growth of bacteria * Follow lactate- NEG. * Follow venous Doppler left lower extremity- NEG. * Left lower extremity leg elevation. * Pain management with Tylenol and NSAID. * Advised to follow-up with websphere portal architect for further evaluation of bilateral lower extremity edema Morbidly obesity * Advised to follow-up with PCP and consider for bariatric surgery in future. Chronic microcytic anemia * Advised to follow-up with physical testing supervisor for further evaluation of anemia #3 DVT prophylaxis- pharmacological. Problem List: 1. Bilateral edema of lower extremity 2. Anemia 3. Cellulitis Pain Ratin Pain Location: Bilateral lower leg Pain Goal: Remain pain free Pain Plan: Mild to moderate Tomorrow's Labs & Rationales: Not required as patient is leaving DVT/Prophylaxis: mechanical, pharmacological CRISTY ESCOBAR,ARSALAN 01/23/17 1505: Attending MD Review Statement Attending Statement Attending MD Statement: examined this patient, discuss w/resident/PA/DIE DESIGNER APPRENTICE, agreed w/resident/PA/DIE DESIGNER APPRENTICE, reviewed EMR data (avail), discussed with nursing, discussed with case mgmt, reviewed images, amended to note Attending Assessment/Plan: Patient seen and examined, overall she is doing better. Her cellulitis is improving. Patient is afebrile with bright red cell count normal. Patient can be switched to oral antibiotics and discharge home today. Patient was given discharge instructions in terms of keeping her legs moisturized. Elevation of the legs as well as putting compression stockings to prevent the edema from happening. She has a chronic lower activity edema which is one of the risk factors for developing recurrent cerebritis. She was referred to her primary care doctor. She can also be referred to a websphere portal architect to check an echocardiogram to determine the cause of this lower activity edema. She claims that her thyroid function has been checked by her primary care doctor and it was okay. She claims that should she has chronic venous insufficiency that she's developing this chronic lower extremities edema. She also has significant anemia of chronic disease and for that she was referred to hematology as an outpatient. She denies any menorrhagia or denies any melanotic stool stool or bright red blood per rectum.
[2017-01-23 08:08] LABS: ABSOLUTE BASOPHIL COUNT 0 /CUMM (0.0-0.2); ABSOLUTE EOSINOPHIL COUNT 0.1 /CUMM (0.0-0.7); ABSOLUTE GRANULOCYTE CT 3.6 /CUMM (1.4-6.5); ABSOLUTE LYMPH COUNT 1.4 /CUMM (1.2-3.4); ABSOLUTE MONOCYTE COUNT 0.4 /CUMM (0.10-0.60); BASOPHIL % 0.3 % (0.0-2.0); EOSINOPHIL % 2.7 % (0-5); GRANULOCYTE % 65.5 % (42.2-75.2); HEMATOCRIT 24.8 % (37-47); MEAN CORPUSCULAR HGB 26.7 PG (27.0-31.0); MEAN CORPUSCULAR HGB CONC 33.4 G/DL (33.0-37.0); MEAN CORPUSCULAR VOLUME 79.9 FL (81.0-99.0); PLATELET COUNT 160 /CUMM (130-400); RBC DISTRIBUTION WIDTH 15.6 % (11.5-14.5); WHITE BLOOD CELL COUNT 5.6 /CUMM (4.8-10.8)
--- NOTE | 2017-01-23 09:01 | Patient Discharge Instructions ---
Discharge Instructions General Discharge Information You were seen/treated for: Swelling and infection of both legs - cellulitis Special Instructions: please follow up with your PCP with in a week of discharge. Please follow-up with grease maker head for further evaluation of anemia Please follow-up with vendette for further evaluation of bilateral lower extremity edema Please take the medication as advised please keep your limb elevated. Diet Continue normal diet: No Recommended Diet: Heart Healthy, Low Fat Acute Coronary Syndrome Inclusion Criteria At DC or during hospital stay patient has or had the following: ACS DIAGNOSIS No Discharge Core Measures Meds if any: Prescribed or Continued at Discharge Meds if any: NOT Prescribed or Continued at Discharge Congestive Heart Failure Inclusion Criteria At DC or during hospital stay patient has or had the following: CHF DIAGNOSIS No Discharge Core Measures Meds if any: Prescribed or Continued at Discharge Meds if any: NOT Prescribed or Continued at Discharge Cerebrovascular accident Inclusion Criteria At DC or during hospital stay patient has or had the following: CVA/TIA Diagnosis No Discharge Core Measures Meds if any: Prescribed or Continued at Discharge Meds if any: NOT Prescribed or Continued at Discharge Venous thromboembolism Inclusion Criteria VTE Diagnosis No VTE Type NONE VTE Confirmed by (Test) NONE Discharge Core Measures - Per Current guidelines, there needs to be overlap - treatment for the first 5 days of Warfarin therapy. - If discharged on Warfarin prior to 5 days of - overlap therapy, the patient will need to be - assessed for post discharge needs including - *Post discharge parental anticoagulation - *Warfarin and/or parental anticoagulation education - *Follow up date to check INR post discharge At least 5 days overlap therapy as Inpatient No Meds if any: Prescribed or Continued at Discharge Warfarin No Note: Overlap Therapy is Warfarin and Anticoagulant Meds if any: NOT Prescribed or Continued at Discharge
[2017-01-23] MEDS ORDERED: KEFLEX500 M1 PO (09:50)
[2017-01-23] MEDS ORDERED: ZYRTEC10 M3 PO (10:09)
--- NOTE | 2017-01-23 13:26 | Discharge Summary ---
See Addendum Visit Information Visit Dates Admission Date: 01/21/17 Discharge Date: 01/23/17 Hospital Course Course Attending Physician: Arsalan Khan MD Primary Care Physician: IQRA VASQUEZ APRN Hospital Course: Patient is a 31-year-old morbidly obese female with significant past medical history of chronic microcytic anemia, recurrent lower extremity cellulitis presented with chief complaints of redness, pain in the left lower extremity since last 7 days, along with URI symptoms. Vital signs at the time of admission-temperature 97.4, pulse 106, respiratory rate 18, blood pressure 134/78, SPO2 98% on room air.. Pertinent labs-WBC 11.5, hemoglobin 9.7, Lactic acid 1.0. C-reactive protein 4.0 (elevated). Glucose 103. Bilateral lower leg cellulitis, left worse than the right We admitted the patient to general medical floor, took the blood culture and started her on IV cefazolin 1 gram IV 8 hourly. We did bilateral venous Doppler which was negative for DVT. Later blood culture did not showed any growth of bacteria. Patient become afebrile in 48 hours. We discharged her on tablet Keflex 500 milligrams every 6 hourly for total 10 days. We advised her for keeping the leg elevated as much as possible and use stockings. We advised her to follow-up with the PCP for further management. We also referred her to the elementary school registrar for further evaluation of bilateral lower extremity edema. Chronic microcytic anemia under evaluation Iron panel showed -serum iron 22, TIBC-288, serum ferritin-142. MCV 79.9. She is having microcytic anemia but has serum ferritin level was elevated and TIBC is near normal, we are suspecting it can be due to sickle cell disease or any other causes rather than iron deficiency. We advised her to follow-up with health care administrator as an outpatient for further evaluation of anemia Morbid obesity She was evaluated as an outpatient for an HbA1c, thyroid function, lipid profile , which were normal. We discussed about the obesity management and advised her to have evaluation and consider for bariatric surgery in future. Allergies: Coded Allergies: NO KNOWN ALLERGIES (06/25/15) Disposition Summary Disposition Principal Diagnosis: Bilateral lower leg cellulitis,; left worse than right Additional Diagnosis: Bilateral lower extremity edema Recurrent cellulitis Morbid obesity Chronic anemia under evaluation Recurrent sinusitis Allergic rhinitis Discharge Disposition: home or self care Discharge Instructions General Discharge Information Code Status: Full Code Patient's Diet: Regular, weight loss, Patient's Activity: As tolerated Follow-Up Instructions/Appts: Please follow-up with your PCP within a week of discharge Please follow-up with elementary school registrar within a week of discharge for further evaluation of bilateral lower leg edema Please follow-up with health care administrator for further evaluation of chronic anemia Please take the medication as advised Please keep your legs elevated whenever you get the time and the scratching the skin. Medications at Discharge Discharge Medications: Continue taking these medications: Ferrous Sulfate (Ferrous Sulfate) 325 MG (65 MG IRON) TABLET 1 Tablet ORAL DAILY Comments: NOT GIVEN IN HOSPITAL Naproxen Sodium (Aleve) 220 MG TABLET 2 Tablet ORAL as needed for PAIN Comments: NOT GIVEN IN HOSPITAL Phenylephrine/Dm/Acetaminop/GG (Sudafed PE Pressure+Pain+Cold) 5 MG-10 MG-325 MG -100 MG TABLET 2 Tablet ORAL as needed for COLD SYMPTOMS Comments: NOT GIVEN IN HOSPITAL Start taking the following new medications: Cephalexin (Keflex) 500 MG CAPSULE 1 Capsule ORAL EVERY SIX HOURS Qty = 30 No Refills Comments: NOT GIVEN IN HOSPITAL Cetirizine HCl (Zyrtec) 10 MG TABLET 1 Tablet ORAL DAILY NEEDED as needed for RHINITIS Qty = 30 No Refills Comments: NOT GIVEN IN HOSPITAL Copies To: IQRA VSAQUEZ APRN; MILTON ESCOBAR,PENDING SALE TO [facility]; SHIRA ESCOBAR,Marcio NAVAS Attending MD Review Statement Documenting Attending: CRISTY ESCOBAR,ARSALAN
== END 2017-01-23 13:27 | DRG 603 ==
LOC: ERH 21:57 → 2NB 01-21 01:43 → ERHI 01-21 01:43 → ENRESERV 01-21 02:30 → 2NB 01-21 03:25 → ENPENDDIS 01-23 11:09 → 2NB 01-23 13:27
PROVIDERS: Physician Assistant; ADMIT Internal Medicine
DX: L03.116 Cellulitis of left lower limb (principal); Z68.43 Body mass index [BMI] 50.0-59.9, adult; E66.01 Morbid (severe) obesity due to excess calories; L03.115 Cellulitis of right lower limb; I89.0 Lymphedema, not elsewhere classified; D50.9 Iron deficiency anemia, unspecified
CPT/HCPCS: 2NBSP; 36415; 82436; 87040; 96374; 96375; J0690; J1650; J1885; J2405

== ENCOUNTER 2017-02-18 11:22 | Inpatient (IN) | payer OTHER ==
[~2017-02-18] VITALS: Ht 180.3 cm; Wt 188.2 kg
[~2017-02-18 11:22] MED LIST changes: +ALEVE220 M2 PO; +FERROUS SULFAT325 M3 PO; +SUDAFED PE PRE1 EAC3 PO; +ZYRTEC10 M3 PO
--- NOTE | 2017-02-18 11:29 | NUR ---
PT TO ED FOR C/C OF CELLULITIS TO RLE. PT HAS HAD INTERMITTENT CELLULITIS FOR 2 WEEKS BUT HAS FINISHED TWO FULL ROUNDS OF ANTIBIOTICS TWO WEEKS AGO. RLE RED, HOT SWOLLEN, FEBRILE 101.0. +NAUSEA AND +VOMITING X 3 TIMES TODAY.
--- NOTE | 2017-02-18 11:32 | NUR ---
PT TAKEN DIRECTLY TO ROOM 3 FROM TRIAGE.
--- NOTE | 2017-02-18 11:40 | ED GENERAL ADULT ---
History of Present Illness General Chief Complaint: Lower Extremity Problems Stated Complaint: CELLULITIS RIGHT LOWER EXTREMITY Source: patient, old records Exam Limitations: no limitations Vital Signs & Intake/Output Vital Signs & Intake/Output Vital Signs Date Time Temp Pulse Resp B/P B/P Pulse O2 O2 Flow FiO2 Mean Ox Delivery Rate 02/18 1317 98 Room Air 02/18 1126 101.0 120 15 116/74 98 Room Air Room Air Allergies Coded Allergies: No Known Allergies (02/18/17) Reconcile Medications Cephalexin (Keflex) 500 MG CAPSULE 1 CAP PO Q6 CELLULITIS Cetirizine HCl (Zyrtec) 10 MG TABLET 1 TAB PO DAILY NEEDED PRN RHINITIS Ferrous Sulfate 325 MG (65 MG IRON) TABLET 1 TAB PO DAILY SUPPLEMENT ( Reported) Naproxen Sodium (Aleve) 220 MG TABLET 2 TAB PO PRN PAIN (Reported) Phenylephrine/Dm/Acetaminop/GG (Sudafed PE Pressure+Pain+Cold) 5 MG-10 MG-325 MG -100 MG TABLET 2 TAB PO PRN COLD SYMPTOMS (Reported) Triage Note: PT TO ED FOR C/C OF CELLULITIS TO RLE. PT HAS HAD INTERMITTENT CELLULITIS FOR 2 WEEKS BUT HAS FINISHED TWO FULL ROUNDS OF ANTIBIOTICS TWO WEEKS AGO. RLE RED, HOT SWOLLEN, FEBRILE 101.0. +NAUSEA AND +VOMITING X 3 TIMES TODAY. Triage Nurses Notes Reviewed? yes : No Patient currently breastfeeds: No HPI: Patient presents with fevers chills and redness to her right lower leg since this morning. Patient had a recent admission for cellulitis which had failed outpatient antibiotics. Patient finished her course of antibiotics and was doing fine until this morning when the redness came back. Fevers are Lela 02. Patient states she has tenderness in the reddened area. There is no pain outside of the red area. There is no nausea or vomiting. Past History Travel History Traveled to [place] past 21 day No Medical History Any Pertinent Medical History? 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 No Review of Systems Review of Systems Constitutional: Reports: see HPI, chills, fever. EENTM: Reports: no symptoms. Respiratory: Reports: no symptoms. Cardiovascular: Reports: no symptoms. GI: Reports: no symptoms. Genitourinary: Reports: no symptoms. Musculoskeletal: Reports: no symptoms. Skin: Reports: see HPI. Neurological/Psychological: Reports: no symptoms. Hematologic/Endocrine: Reports: no symptoms. Immunologic/Allergic: Reports: no symptoms. All Other Systems: Reviewed and Negative Physical Exam Physical Exam General Appearance: well developed/nourished, alert, awake, moderate distress Head: atraumatic, normal appearance Eyes: Bilateral: PERRL, EOMI. Ears, Nose, Throat: normal pharynx, normal ENT inspection Neck: normal inspection, supple, full range of motion Respiratory: normal breath sounds, chest non-tender, no respiratory distress Cardiovascular: regular rate/rhythm, normal peripheral pulses Gastrointestinal: normal bowel sounds, soft, non-tender, no organomegaly Back: normal inspection, normal range of motion Extremities: normal inspection, pedal edema, tenderness Neurologic/Psych: no motor/sensory deficits, awake, alert, oriented x 3, normal mood/affect Skin: ERYTHMEA, WARMTH, TENDER TO TOUCH, NO TENDERNESS OUTSIDE OF RED AREA. Core Measures ACS in differential dx? No CVA/TIA Diagnosis: No Severe Sepsis Present: Yes BC x2: Yes Lactic Acid x2: No IV ABX Broad Spectrum: Yes NS/LR Started: Yes Septic Shock Present: No Progress Differential Diagnoses I considered the following diagnoses in my evaluation of the patient: [ CELLULITIS, NEC FASC.] Plan of Care: Orders Procedure Date/time Status [id number], RIGHT 02/18 1211 Active BLOOD CULTURE 02/18 1140 Active WESTERGREN SED RATE 02/18 1140 Active COMPREHENSIVE METABOLIC PANEL 02/18 1140 Complete CBC WITHOUT DIFFERENTIAL 02/18 1140 Active Laboratory Tests 02/18/17 1206: Anion Gap 10, Estimated GFR > 60, BUN/Creatinine Ratio 14.4, Glucose 101 H, Calcium 8.5, Total Bilirubin 0.5, AST 17, ALT 34, Alkaline Phosphatase 65, Total Protein 6.4, Albumin 3.4 L, Globulin 3.0, Albumin/Globulin Ratio 1.1, CBC w Diff MAN DIFF ORDERED, RBC 3.65 L, MCV 79.3 L, MCH 26.7 L, RDW 16.4 H, MPV 7.2 L, Gran % 93.9 H, Lymphocytes % 3.6 L, Monocytes % 2.2, Eosinophils % 0, Basophils % 0.3, Absolute Granulocytes 14.2 H, Segmented Neutrophils 77 H, Band Neutrophils 18 H, Absolute Lymphocytes 0.5 L, Lymphocytes 3 L, Monocytes 2, Absolute Monocytes 0.3, Absolute Eosinophils 0, Absolute Basophils 0, Platelet Estimate VERIFIED BY SMEAR, Polychromasia 1+, Hypochromic-Microcytic 1+ , Poikilocytosis 1+, Basophilic Stippling 1+, Anisocytosis 1+, Microcytic Cells 1+, Stomatocytes 1+, PUBS MCHC 33.7, ESR Westergren Pending Microbiology 02/18 1255 BLOOD: Blood Culture - RECD 02/18 1206 BLOOD: Blood Culture - RECD Initial ED EKG: none ED Sepsis Exam Date of Focused Sepsis Exam: 02/18/17 Time of Focused Sepsis Exam: 1327 Sepsis Cardiac Exam: Tachycardia Sepsis Resp Exam: CTA Sepsis Cap Refill Exam: <2 Sec Sepsis Peripheral Pulse Exam: Normal Sepsis Peripheral Pulse Location: Radial Sepsis Skin Color Exam: Normal for Ethnicity Skin Temp/Moisture Exam: Warm/Dry Departure Departure Disposition: STILL A PATIENT Condition: Stable Clinical Impression Primary Impression: Sepsis Secondary Impressions: Cellulitis Referrals: IQRA VASQUEZ APRN (PCP/Family) Departure Forms: Customer Survey General Discharge Information Admission Note Spoke With: ARSENIO ESCOBAR,FADUMO Beyer Documentation of Exam: Documentation of any treatments & extenuating circumstances including Concerns Regarding Discharge (functional status, medication knowledge or non-compliance, living conditions, etc.) that warrant an admission rather than observation: [ Aggressive hydration, IV antibiotics, ID consultation for recurrent cellulitis] Critical Care Note Critical Care Note Critical Care Time: non-applicable
--- NOTE | 2017-02-18 11:45 | NUR ---
TRIAGE NOTE ACKNOWLEDGED AND RN CARE ASSUMED PT BOUGHT TO ROOM # [address] CASTELLON
--- NOTE | 2017-02-18 12:10 | NUR ---
LABS DRAWN AND SENT AT 1206, 2 LAV,SST,LANDIN,BLUE AND FIRST SET OF BC SENT.
[2017-02-18 12:24] LABS: ABSOLUTE BASOPHIL COUNT 0 /CUMM (0.0-0.2); ABSOLUTE EOSINOPHIL COUNT 0 /CUMM (0.0-0.7); ABSOLUTE GRANULOCYTE CT 14.2 /CUMM (1.4-6.5); ABSOLUTE LYMPH COUNT 0.5 /CUMM (1.2-3.4); ABSOLUTE MONOCYTE COUNT 0.3 /CUMM (0.10-0.60); BASOPHIL % 0.3 % (0.0-2.0); EOSINOPHIL % 0 % (0-5); GRANULOCYTE % 93.9 % (42.2-75.2); HEMATOCRIT 28.9 % (37-47); MEAN CORPUSCULAR HGB 26.7 PG (27.0-31.0); MEAN CORPUSCULAR HGB CONC 33.7 G/DL (33.0-37.0); MEAN CORPUSCULAR VOLUME 79.3 FL (81.0-99.0); MEAN PLATELET VOLUME 7.2 FL (7.4-10.4); PLATELET COUNT 206 /CUMM (130-400); RBC DISTRIBUTION WIDTH 16.4 % (11.5-14.5); RED BLOOD CELL CT 3.65 /CUMM (4.20-5.40); WHITE BLOOD CELL COUNT 15.1 /CUMM (4.8-10.8)
--- NOTE | 2017-02-18 13:18 | NUR ---
2ND SET OF BLOOD CULTURES DRAWN. 22 G CHRIS PLACED IN NUVIA PT MEDICATED WITH 1 G ROCEPHIN IV, 1 G IV TYLENOL AND 4 MG ZOFRAN IV FOR NAUSEA.
[2017-02-18] MEDS ORDERED: LASIX20 M1 PO (13:47)
--- NOTE | 2017-02-18 14:01 | NUR ---
TEMP 104.1. PT MEDICATED WITH 600 MG IBUPROFEN PO AND IV OF N/S STARTED W/O X 2 LITERS.
--- NOTE | 2017-02-18 14:06 | NUR ---
pt to room 225 bed 1
--- NOTE | 2017-02-18 14:46 | History & Physical ---
General Information and HPI MD Statement: I have seen and personally examined CRISPIN CERDA and documented this H&P. The patient is a 31 year old F who presented with a patient stated chief complaint of RLE redness, warmth, tenderness. Source of Information: patient Exam Limitations: no limitations History of Present Illness: Ms Cerda is a 31-year-old woman with recurrent cellulitis, was in her usual state of health until last night when she started experiencing fevers, chills accompanied by nausea and 3 episodes of vomiting. This happened immediately after patient consumed kinyarwanda food; contents of vomitus contained food particles. 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 She has a past history of multiple hospitalizations for lower extremity cellulitis, recent 01/04/2016 and early January for left lower extremity and bilateral cellulitis, treated with Keflex both times. She reports being compliant with her antibiotics prescribed at discharge and completing the course. No reported injury or loss of skin integrity. Has seen the primary care physician, who recommended dressing change it regularly. Recently, saw Dr. Rose post discharge, where she had a EKG done and an Echocardiogram, reportedly normal per patient. 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 Patient dosn't wear any compression stockings or DAMIEN wraps. Does admit to worsening leg swelling. Allergies/Medications Allergies: Coded Allergies: No Known Allergies (02/18/17) Home Med list Cetirizine HCl (Zyrtec) 10 MG TABLET 1 TAB PO DAILY NEEDED PRN RHINITIS Ferrous Sulfate 325 MG (65 MG IRON) TABLET 1 TAB PO DAILY SUPPLEMENT ( Reported) Furosemide (Lasix) 20 MG TABLET 1 TAB PO EOD FLUID RETENTION (Reported) Naproxen Sodium (Aleve) 220 MG TABLET 2 TAB PO PRN PAIN (Reported) Compliance With Home Meds: GOOD Past History Travel History Traveled to [place] past 21 day No Medical History Neurological: NONE EENT: sinusitis Cardiovascular: NONE Respiratory: ASTHMA LIKE SYMPTOMS WHEN SICK Gastrointestinal: NONE Hepatic: NONE Renal: NONE Musculoskeletal: CELLULITIS Psychiatric: NONE Endocrine: LYMPHEDEMA Blood Disorders: anemia Cancer(s): 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 yes Functional Ability ADLs Independent: dressing, eating, toileting, bathing. Ambulation: independent IADLs Independent: shopping, housework, finances, food prep, telephone, transportation , medication admin. Review of Systems Review of Systems Constitutional: Reports: see HPI. Exam & Diagnostic Data Last 24 Hrs of Vital Signs/I&O Vital Signs Date Time Temp Pulse Resp B/P B/P Pulse O2 O2 Flow FiO2 Mean Ox Delivery Rate 02/18 1401 104.1 02/18 1351 104.1 122 18 108/55 96 Room Air 02/18 1317 98 Room Air 02/18 1126 101.0 120 15 116/74 98 Room Air Room Air Intake & Output 02/18 1600 02/18 0800 02/18 0000 Intake Total 200 Output Total Balance 200 Intake, IV 200 Patient 415 lb Weight Weight Reported by Patient Measurement Method Physical Exam General Appearance Alert, Oriented X3, Cooperative Skin Temp/Moisture Exam: Warm/Dry Sepsis Skin Exam (color): Normal for Ethnicity, Pale HEENT Atraumatic, PERRLA, EOMI Neck Supple, No JVD Cardiovascular Regular Rate, Normal S1, Normal S2 Lungs Clear to Auscultation, Normal Air Movement Abdomen Normal Bowel Sounds, Soft, No Tenderness Neurological Strength at 5/5 X4 Ext Extremities No Clubbing, No Cyanosis, 2+ pitting edema bilaterally. Area of warmth, redness and tenderness RLE (marked). Vascular Normal Pulses, Pulses Symmetrical Sepsis Peripheral Pulse Exam: Weak Sepsis Cap Refill Exam: <2 Sec Last 24 Hrs of Labs/Davon: Laboratory Tests 02/18/17 1206: Anion Gap 10, Estimated GFR > 60, BUN/Creatinine Ratio 14.4, Glucose 101 H, Calcium 8.5, Total Bilirubin 0.5, AST 17, ALT 34, Alkaline Phosphatase 65, Total Protein 6.4, Albumin 3.4 L, Globulin 3.0, Albumin/Globulin Ratio 1.1, CBC w Diff MAN DIFF ORDERED, RBC 3.65 L, MCV 79.3 L, MCH 26.7 L, RDW 16.4 H, MPV 7.2 L, Gran % 93.9 H, Lymphocytes % 3.6 L, Monocytes % 2.2, Eosinophils % 0, Basophils % 0.3, Absolute Granulocytes 14.2 H, Segmented Neutrophils 77 H, Band Neutrophils 18 H, Absolute Lymphocytes 0.5 L, Lymphocytes 3 L, Monocytes 2, Absolute Monocytes 0.3, Absolute Eosinophils 0, Absolute Basophils 0, Platelet Estimate VERIFIED BY SMEAR, Polychromasia 1+, Hypochromic-Microcytic 1+ , Poikilocytosis 1+, Basophilic Stippling 1+, Anisocytosis 1+, Microcytic Cells 1+, Stomatocytes 1+, PUBS MCHC 33.7, ESR Westergren 48 H Microbiology 02/18 1255 BLOOD: Blood Culture - RECD 02/18 1206 BLOOD: Blood Culture - RECD Assessment/Plan Assessment: Ms. Cerda is young woman with a past history of multiple hospital admissions for the treatment of lower extremity cellulitis likely due to venous insufficiency. At the time of admission, vitals-temperature (Tmax) 104.1, pulse rate 122, respiration 18, blood pressure 116/74, pulse ox 96% on room air. Lab findings indicated WBC 15.1, hemoglobin 9.7 (baseline 10.8) iron studies revealed low iron and ferritin with normal TIBC, platelets 206. Normal electrolytes, renal function and liver function was noted. Lactic acid penidng. ESR 48. Glucose 101. Differential diagnosis: #1 left lower extremity cellulitis #2 rule out DVT (Low probabilty by Well's criteria, would hold any imaging studies for now) Below is the problem list and plan: #1 Right lower extremity swelling, redness, and tenderness-Non purulent RLE cellulitis. The patient received a dose of Ceftriaxone in the ED; previously has done well on Cefazolin. May use either. If the patient does not respond to cefazolin, antibiotic coverage could be broadened. Follow blood cultures. Follow lactate. Follow resolution of erythema or time; area marked. Lower extremity leg elevation. Pain management with Tylenol and NSAID. Now it is prudent that this patient be started on Lasix after resolution of her current illness, and encouraged to wear compression stockings as nature of her job does involve prolonged standing. Does meet criteria for sespis, provide appropriate fluid resuscitation. May merit from a outpatient vascular consult. Tachycardia: Likely physiological. Fluid resuscitation. Check EKG. #2 Obesity- Normal HbA1c and TSH in the past. Referral to weight loss clinic on the outside. Please obtain recent Echo results from Dr. Rose's office. #3 DVT prophylaxis-pharmacological. Full code. Lovenox for DVT prophylaxis. Regular diet. As Ranked By This Provider Problem List: 1. Cellulitis Core Measures/Miscellaneous Acute Coronary Syndrome ACS Diagnosis: No Cerebrovascular Accident CVA/TIA Diagnosis: No Congestive Heart Failure CHF Diagnosis: No VTE (View Protocol) VTE Risk Factors: Acute medical illness, Age > 40 No [facility] VTE prophylaxis d/t: No contraindications No VTE Pharm Prophylaxis d/t: No contraindications VTE Diagnosis: No VTE Type: NONE VTE Confirmed by (Test): NONE Sepsis (View Protocol) Severe Sepsis Present: Yes BC x2: Yes Lactic Acid x2: No IV ABX Broad Spectrum: Yes NS/LR Started: Yes Septic Shock Septic Shock Present: No Miscellaneous Documentation Attending Case Discussed With: ARSENIO ESCOBAR,FADUMO Beyer Primary Care Physician: IQRA VASQUEZ APRN Patient sees these Specialists Dr. Rose Level of Patient Care: General Medicine
--- NOTE | 2017-02-18 15:22 | RADIOLOGY REPORT ---
EXAMINATION: XR TIBIA AND FIBULA, RIGHT CLINICAL INFORMATION: Cellulitis COMPARISON: None TECHNIQUE: AP and lateral views of the right tibia and fibula were obtained. FINDINGS: No bony finding. No fracture or periosteal change. There is swelling of the lower extremity here but no evidence for soft tissue air. IMPRESSION: No soft tissue air. No bony finding.
--- NOTE | 2017-02-18 15:40 | NUR ---
PT ADMITTED TO ROOM # 225-1. ORAL REPORT GIVEN TO CAROLYN JENNINGS ALL V.S.S. CLINICAL STATUS UNCHANGED. PT READY FOR TRANSFER
--- NOTE | 2017-02-18 15:56 | NUR ---
TRANSPORT HERE FOR PT
[2017-02-18 16:15] VITALS: BP 110/60
--- NOTE | 2017-02-18 16:15 | NUR ---
PT ARRIVED TO FLOOR. INDEPENDENT FROM STRETCHER TO BED. VSS. RLE CELLULITIS. DENIES PAIN. NS RUNNING. 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
--- NOTE | 2017-02-18 17:27 | PN- Att Addend ---
Attending MD Review Statement Attending Statement Attending MD Statement: examined this patient, discuss w/resident/PA/HHAS, agreed w/resident/PA/HHAS, reviewed EMR data (avail), discussed w/nursing Attending Assessment/Plan: Laboratory Tests 02/18/17 1206: Anion Gap 10, Estimated GFR > 60, BUN/Creatinine Ratio 14.4, Glucose 101 H, Lactic Acid 1.2, Calcium 8.5, Total Bilirubin 0.5, AST 17, ALT 34, Alkaline Phosphatase 65, Total Protein 6.4, Albumin 3.4 L, Globulin 3.0, Albumin/ Globulin Ratio 1.1, 25-OH Vitamin D Total 15.8 L, CBC w Diff MAN DIFF ORDERED, RBC 3.65 L, MCV 79.3 L, MCH 26.7 L, RDW 16.4 H, MPV 7.2 L, Gran % 93.9 H, Lymphocytes % 3.6 L, Monocytes % 2.2, Eosinophils % 0, Basophils % 0.3, Absolute Granulocytes 14.2 H, Segmented Neutrophils 77 H, Band Neutrophils 18 H, Absolute Lymphocytes 0.5 L, Lymphocytes 3 L, Monocytes 2, Absolute Monocytes 0.3, Absolute Eosinophils 0, Absolute Basophils 0, Platelet Estimate VERIFIED BY SMEAR, Polychromasia 1+, Hypochromic-Microcytic 1+, Poikilocytosis 1 +, Basophilic Stippling 1+, Anisocytosis 1+, Microcytic Cells 1+, Stomatocytes 1 +, PUBS MCHC 33.7, ESR Westergren 48 H Vital Signs Date Time Temp Pulse Resp B/P B/P Pulse O2 O2 Flow FiO2 Mean Ox Delivery Rate 02/18 1615 99.3 88 18 110/60 97 Room Air 02/18 1453 99.1 93 18 108/57 94 02/18 1415 99.3 02/18 1401 104.1 02/18 1351 104.1 122 18 108/55 96 Room Air 02/18 1317 98 Room Air 02/18 1126 101.0 120 15 116/74 98 Room Air Room Air 31 yr old female with morbid obesity and chronic leg swelling and recent admission for cellulitis LE admitted with cellulitis of rt lower extremity. Pt presented with c/c of redeness and fever of 1 day duration. Cellulitis- start on iv unasyn, leg elevation. Pt will need bariatric surgery referral at discharge . d/w pt the care plan. Will also need sleep study as an outpatient.
--- NOTE | 2017-02-18 17:29 | Admission Certification ---
Admission Certification Certification Statement - As attending physician, I certify that at the time of - admission, based on clinical presentation, severity of - symptoms, need for further diagnostic testing and - therapeutic interventions, and risk of adverse outcomes - without in-hospital treatment, in my clinical assessment, - this patient requires an acute hospital stay for a minimum - of two nights or longer. I have also considered psychsocial - factors such as support system, advanced age, financial - issues, cognitive issues, and failed out-patient treatments, - past re-admission history, safety of patient, and lack of - compliance as applicable. Specific rationale supporting this admission is: recurrent cellulitis
[2017-02-18 21:56] VITALS: BP 118/62
--- NOTE | 2017-02-19 01:33 | NUR ---
AT APPROX 0120 ON 02/19/17 THE LAB CALLED AND REPORTED GRAM POSITVE COCCI CHAINS IN BLOOD OF PATIENT. MD FELICITAS LUGO CALLED AND ALERTED. WILL CONTINUE TO MONITOR
--- NOTE | 2017-02-19 02:11 | Event Note ---
Event Note Event Note: S: Were informed that the patient's blood cultures were positive. Gram-positive cocci in present chains. B: This is a 31-year-old woman with recurrent cellulitis who presented experiencing fevers and chills. A/R: Patient continues to be on IV antibiotics. One out of 4 cultures are positive. We'll continue to monitor. Attending is aware. Will sign out to AM team.
[2017-02-19 06:30] VITALS: BP 116/68
[2017-02-19 09:26] LABS: ABSOLUTE BASOPHIL COUNT 0 /CUMM (0.0-0.2); ABSOLUTE EOSINOPHIL COUNT 0 /CUMM (0.0-0.7); ABSOLUTE GRANULOCYTE CT 9.7 /CUMM (1.4-6.5); ABSOLUTE LYMPH COUNT 0.8 /CUMM (1.2-3.4); ABSOLUTE MONOCYTE COUNT 0.2 /CUMM (0.10-0.60); BASOPHIL % 0 % (0.0-2.0); EOSINOPHIL % 0 % (0-5); GRANULOCYTE % 90.2 % (42.2-75.2); HEMATOCRIT 26.6 % (37-47); MEAN CORPUSCULAR HGB 26.7 PG (27.0-31.0); MEAN CORPUSCULAR HGB CONC 33.5 G/DL (33.0-37.0); MEAN CORPUSCULAR VOLUME 79.6 FL (81.0-99.0); MEAN PLATELET VOLUME 7.8 FL (7.4-10.4); PLATELET COUNT 182 /CUMM (130-400); RED BLOOD CELL CT 3.34 /CUMM (4.20-5.40); WHITE BLOOD CELL COUNT 10.7 /CUMM (4.8-10.8)
--- NOTE | 2017-02-19 11:11 | PN- Housestaff ---
Subjective Follow-up For: Cellulitis Hypokalemia Complaints: no complaints Subjective: Interval history: This morning she reports improvement in her symptoms. She states that the fevers and chills have subsided and also notes that her generalized weakness has improved. She denies any nausea, vomiting, abdominal pain this time. Review of Systems Constitutional: Reports: see HPI. EENTM: Reports: no symptoms. Cardiovascular: Reports: no symptoms. Respiratory: Reports: no symptoms. Gastrointestinal: Reports: no symptoms. Musculoskeletal: Reports: see HPI. Objective Last 24 Hrs of Vital Signs/I&O Vital Signs Date Time Temp Pulse Resp B/P B/P Pulse O2 O2 Flow FiO2 Mean Ox Delivery Rate 02/19 0630 99.5 90 18 116/68 98 Room Air 02/18 2156 99.4 96 19 118/62 99 Room Air 02/18 2052 98.6 02/18 1839 98.8 02/18 1615 99.3 88 18 110/60 97 Room Air 02/18 1453 99.1 93 18 108/57 94 02/18 1415 99.3 02/18 1401 104.1 02/18 1351 104.1 122 18 108/55 96 Room Air 02/18 1317 98 Room Air 02/18 1126 101.0 120 15 116/74 98 Room Air Room Air Intake & Output 02/19 1600 02/19 0800 02/19 0000 Intake Total 1030 Output Total Balance 1030 Intake, IV 850 Intake, Oral 180 Patient 415 lb Weight Physical Exam General Appearance: Alert, Cooperative, No Acute Distress Skin: interval improvement in the erythema over the right distal lower extremity HEENT: Mucous Membr. moist/pink Cardiovascular: Regular Rate, Normal S1, Normal S2 Lungs: Normal Air Movement, distant lung sounds Abdomen: Soft, No Tenderness Extremities: 3+ pitting edema bilateral lower extremities up towards the knees Current Medications: Current Medications Sig/Juan Carlos Start time Last Medication Dose Route Stop Time Status Admin Acetaminophen 650 MG Q6P PRN 02/18 1430 AC 02/18 PO 2051 Acetaminophen 0 .STK-MED ONE 02/18 1308 DC IV Acetaminophen 1,000 MG ONCE ONE 02/18 1145 DC 02/18 N/A 1 UNIT IV 02/18 1159 1316 Ampicillin Sodium/ 3,000 MG Q6 02/18 1800 AC 02/19 Sulbactam Sodium IV 0528 Sodium Chloride 100 ML Cefazolin Sodium 1,000 MG IQ8 02/18 1600 CAN IV Ceftriaxone Sodium 0 .STK-MED ONE 02/18 1308 DC .ROUTE Ceftriaxone Sodium 1,000 MG ONCE ONE 02/18 1145 DC 07 IV 02/18 1146 1316 Enoxaparin Sodium 40 MG DAILY 02/19 1000 AC SC Ergocalciferol 50,000 IU ONCE A WEEK 02/19 1000 AC PO Ferrous Sulfate 325 MG DAILY 02/19 1000 AC PO Ibuprofen 600 MG Q6P PRN 02/18 1430 AC 02/19 PO 0417 Ibuprofen 0 .STK-MED ONE 02/18 1402 DC PO Ibuprofen 600 MG ONCE ONE 02/18 1400 DC 02/18 PO 02/18 1401 1401 Morphine Sulfate 2 MG Q4P PRN 02/18 1430 AC IV Ondansetron HCl 0 .STK-MED ONE 02/18 1317 DC .ROUTE Ondansetron HCl 4 MG ONCE ONE 02/18 1315 DC 07 IV 02/18 1316 1316 Potassium Chloride 40 MEQ ONCE ONE 02/19 1600 AC PO 07 1601 Potassium Chloride 40 MEQ ONCE ONE 02/19 1115 DC PO 02/19 1116 Sodium Chloride 1,000 ML Q10H 02/18 1430 DC IV 07 0029 Sodium Chloride 1,000 ML BOLUS ONE 02/18 1400 DC 07 IV 02/18 1459 1401 Sodium Chloride 1,000 ML BOLUS ONE 02/18 1400 DC 07 IV / 1459 1804 Sodium Chloride 1,000 ML .Q8H / 1345 AC 02/19 IV 0910 Vancomycin HCl 2,000 MG Q12 02/19 1044 AC Sodium Chloride 500 ML IV Vancomycin HCl 1,000 MG DAILY 02/19 1030 DC Sodium Chloride 250 ML IV Last 24 Hrs of Lab/Davon Results Last 24 Hrs of Labs/Mics: Laboratory Tests 02/19/17 0751: Anion Gap 7, Estimated GFR > 60, BUN/Creatinine Ratio 15.7, Magnesium Pending, CBC w Diff MAN DIFF ORDERED, RBC 3.34 L, MCV 79.6 L, MCH 26.7 L, RDW 16.0 H, MPV 7.8, Gran % 90.2 H, Lymphocytes % 7.7 L, Monocytes % 2.1, Eosinophils % 0, Basophils % 0 L, Absolute Granulocytes 9.7 H, Segmented Neutrophils Pending, Absolute Lymphocytes 0.8 L, Absolute Monocytes 0.2, Absolute Eosinophils 0, Absolute Basophils 0, PUBS MCHC 33.5 02/18/17 1430: Lactic Acid Cancelled 02/18/17 1206: Anion Gap 10, Estimated GFR > 60, BUN/Creatinine Ratio 14.4, Glucose 101 H, Lactic Acid 1.2, Calcium 8.5, Total Bilirubin 0.5, AST 17, ALT 34, Alkaline Phosphatase 65, Total Protein 6.4, Albumin 3.4 L, Globulin 3.0, Albumin/ Globulin Ratio 1.1, 25-OH Vitamin D Total 15.8 L, CBC w Diff MAN DIFF ORDERED, RBC 3.65 L, MCV 79.3 L, MCH 26.7 L, RDW 16.4 H, MPV 7.2 L, Gran % 93.9 H, Lymphocytes % 3.6 L, Monocytes % 2.2, Eosinophils % 0, Basophils % 0.3, Absolute Granulocytes 14.2 H, Segmented Neutrophils 77 H, Band Neutrophils 18 H, Absolute Lymphocytes 0.5 L, Lymphocytes 3 L, Monocytes 2, Absolute Monocytes 0.3, Absolute Eosinophils 0, Absolute Basophils 0, Platelet Estimate VERIFIED BY SMEAR, Polychromasia 1+, Hypochromic-Microcytic 1+, Poikilocytosis 1 +, Basophilic Stippling 1+, Anisocytosis 1+, Microcytic Cells 1+, Stomatocytes 1 +, PUBS MCHC 33.7, ESR Westergren 48 H Microbiology 02/18 1255 BLOOD: Blood Culture - RECD 02/18 1206 BLOOD: Blood Culture - RES GRAM POSITIVE COCCI Assessment/Plan Assessment: Ms. Marcial is young woman with a past history of multiple hospital admissions for the treatment of lower extremity cellulitis likely due to venous insufficiency. At the time of admission, vitals-temperature (Tmax) 104.1, pulse rate 122, respiration 18, blood pressure 116/74, pulse ox 96% on room air. Lab findings indicated WBC 15.1, hemoglobin 9.7 (baseline 10.8) iron studies revealed low iron and ferritin with normal TIBC, platelets 206. Normal electrolytes, renal function and liver function was noted. Lactic acid penidng. ESR 48. Glucose 101. Problem list: 1. Cellulitis right lower extremity 2. Gram-positive bacteremia 3. Hypokalemia 4. Vitamin D deficiency Plan: * In the setting of Gram-positive cultures we'll start the patient on vancomycin for possibility of community-acquired MRSA cellulitis. Will monitor for fevers and white count, follow-up blood cultures and adjust antibiotics accordingly * Supplementation of potassium for about 4.0 and magnesium for about 2.0 * Vitamin D 15.8. We'll start the patient on 50,000 IU ergocalciferol once weekly for 8 weeks * Iron deficiency anemia. Ferrous sulfate 325 mg BID * Regular diet * DVT prophylaxis: Lovenox Problem List: 1. Cellulitis 2. Edema 3. Anemia 4. Hypokalemia 5. Vitamin D deficiency Pain Ratin Pain Location: NA Pain Goal: Pain 4 or less Pain Plan: Pain pathway Tomorrow's Labs & Rationales: BEP: Trending hypokalemia BC: Trending leukocytosis in the setting of cellulitis DVT/Prophylaxis: pharmacological
--- NOTE | 2017-02-19 12:10 | PN- Att Addend ---
Attending MD Review Statement Attending Statement Attending MD Statement: examined this patient, discuss w/resident/PA/LABOR DELIVERY RN, agreed w/resident/PA/LABOR DELIVERY RN, reviewed EMR data (avail), discussed w/nursing Attending Assessment/Plan: Laboratory Tests 02/19/17 0751: Anion Gap 7, Estimated GFR > 60, BUN/Creatinine Ratio 15.7, Magnesium 1.6, CBC w Diff MAN DIFF ORDERED, RBC 3.34 L, MCV 79.6 L, MCH 26.7 L, RDW 16.0 H, MPV 7.8, Gran % 90.2 H, Lymphocytes % 7.7 L, Monocytes % 2.1, Eosinophils % 0, Basophils % 0 L, Absolute Granulocytes 9.7 H, Segmented Neutrophils Pending, Absolute Lymphocytes 0.8 L, Absolute Monocytes 0.2, Absolute Eosinophils 0, Absolute Basophils 0, PUBS MCHC 33.5 02/18/17 1430: Lactic Acid Cancelled Vital Signs Date Time Temp Pulse Resp B/P B/P Pulse O2 O2 Flow FiO2 Mean Ox Delivery Rate 02/19 0630 99.5 90 18 116/68 98 Room Air 02/18 2156 99.4 96 19 118/62 99 Room Air 02/18 2052 98.6 02/18 1839 98.8 02/18 1615 99.3 88 18 110/60 97 Room Air 02/18 1453 99.1 93 18 108/57 94 02/18 1415 99.3 02/18 1401 104.1 / 1351 104.1 122 18 108/55 96 Room Air 02/18 1317 98 Room Air Recurrent cellulitis RLE- blood cultures growing gram post cocci- add vanco till we get culture results back. f/u on white count. Had high grade fevers last night.
[2017-02-19 14:52] VITALS: BP 128/88
[2017-02-19 22:12] VITALS: BP 122/84
[2017-02-20 00:18] VITALS: BP 132/68
[2017-02-20 00:30] VITALS: BP 132/68
--- NOTE | 2017-02-20 01:03 | NUR ---
PATIENT STATED FEELING RESTLESS AND DYSPNEIC. THE PATIENT IS OBESE SHE WAS SLEEPING FLAT ON THE BED. THIS RN ELEVATED THE HEAD OF THE BED. PATIENT DENIES CP OR SOB. VSS. PATIENT EXPRESSED FEELING BETTER WITH BED ELEVATION AND STATED SHE NO LONGER FEELS RESTLESS OR DYSPNEIC. MD FELICITAS HWANG WAS MEDE AWARE. WILL CONTINUE TO MONITOR.
[2017-02-20 06:47] VITALS: BP 134/70
--- NOTE | 2017-02-20 08:32 | PN- Housestaff ---
Subjective Follow-up For: Cellulitis Hypokalemia Subjective: I have personally seen and examined the patient today. Patient seemed a little uncomfortable and stated that she did not sleep well last night. Also complained of some low grade fever overnight and pain in her right leg. Denies any Nausea, Vomiting and abdominal pain at this time. Review of Systems Constitutional: Reports: see HPI. Objective Last 24 Hrs of Vital Signs/I&O Vital Signs Date Time Temp Pulse Resp B/P B/P Pulse O2 O2 Flow FiO2 Mean Ox Delivery Rate 02/20 1409 98.4 94 18 122/70 97 Room Air 02/20 0647 99.1 82 18 134/70 100 Room Air 02/20 0250 99.0 / 0030 98.6 90 132/68 / 0018 90 20 132/68 96 Room Air 02/19 2320 99.5 02/19 2212 101.8 98 20 122/84 99 Room Air 02/19 2200 101.8 Intake & Output 02/20 1600 02/20 0800 02/20 0000 Intake Total 1000 1300 Output Total 1000 Balance 1000 300 Intake, IV 1000 800 Intake, Oral 500 Number 1 Bowel Movements Output, Urine 1000 Physical Exam General Appearance: Alert, Oriented X3, Cooperative, No Acute Distress Other Physical Findings: Skin No Rashes, Erythema of right leg HEENT Atraumatic, PERRLA, EOMI Neck Supple, No JVD Cardiovascular Regular Rate, Normal S1, Normal S2, No Murmurs Lungs Clear to Auscultation, Normal Air Movement Abdomen Normal Bowel Sounds, Soft, No Tenderness, No Hepatospenomegaly, No Masses Neurological Normal Gait, Normal Speech, Strength at 5/5 X4 Ext, Normal Tone, Sensation Intact Extremities No Clubbing, No Cyanosis, +3 Edema of right leg, Normal Pulses, Normal Capillary Refill Vascular Normal Pulses Current Medications: Current Medications Sig/Juan Carlos Start time Last Medication Dose Route Stop Time Status Admin Acetaminophen 650 MG Q6P PRN 02/18 1430 AC 02/19 PO 2132 Ampicillin Sodium/ 3,000 MG Q6 02/18 1800 AC 02/20 Sulbactam Sodium IV 1211 Sodium Chloride 100 ML Enoxaparin Sodium 40 MG DAILY 02/19 1000 AC 02/20 SC 0938 Ergocalciferol 50,000 IU ONCE A WEEK 02/19 1000 AC 07/02 PO 1127 Ferrous Sulfate 325 MG DAILY 02/19 1000 AC 02/20 PO 0939 Ibuprofen 600 MG Q6P PRN 02/18 1430 AC 02/20 PO 0938 Magnesium Oxide 400 MG ONE ONE 02/19 1530 DC 02/19 PO 02/19 1531 1646 Morphine Sulfate 2 MG Q4P PRN 02/18 1430 AC IV Potassium Chloride 40 MEQ ONCE ONE 02/19 1600 DC 02/19 PO 02/19 1601 1646 Sodium Chloride 1,000 ML .Q8H 02/18 1345 AC 02/20 IV 1211 Vancomycin HCl 2,000 MG Q12 02/19 1044 AC 02/20 Sodium Chloride 500 ML IV 0939 Last 24 Hrs of Lab/Davon Results Last 24 Hrs of Labs/Mics: Laboratory Tests 02/20/17 0750: Anion Gap 8, Estimated GFR > 60, BUN/Creatinine Ratio 16.7, CBC w Diff MAN DIFF ORDERED, RBC 3.21 L, MCV 80.1 L, MCH 27.0, RDW 16.6 H, MPV 8.0, Gran % 85.3 H, Lymphocytes % 11.8 L, Monocytes % 2.3, Eosinophils % 0.4, Basophils % 0.2, Absolute Granulocytes 7.0 H, Segmented Neutrophils 73, Band Neutrophils 13 H, Absolute Lymphocytes 1.0 L, Lymphocytes 10 L, Monocytes 3, Absolute Monocytes 0.2, Absolute Eosinophils 0, Basophils 1, Absolute Basophils 0, Platelet Estimate ADEQUATE, Hypochromic-Microcytic 1+, Anisocytosis 1+, PUBS MCHC 33.7 Assessment/Plan Assessment: Ms. Marcial is young woman with a past history of multiple hospital admissions for the treatment of lower extremity cellulitis likely due to venous insufficiency. At the time of admission, vitals-temperature (Tmax) 104.1, pulse rate 122, respiration 18, blood pressure 116/74, pulse ox 96% on room air. Lab findings indicated WBC 15.1, hemoglobin 9.7 (baseline 10.8) iron studies revealed low iron and ferritin with normal TIBC, platelets 206. Normal electrolytes, renal function and liver function was noted. Lactic acid penidng. ESR 48. Glucose 101. Problem list: 1. Cellulitis right lower extremity 2. Gram-positive bacteremia 3. Hypokalemia 4. Vitamin D deficiency Plan: * In the setting of Gram-positive cultures we started the patient on vancomycin for possibility of community-acquired MRSA cellulitis. Will monitor for fevers and white count, follow-up blood cultures and adjust antibiotics accordingly * Supplementation of potassium for about 4.0 and magnesium for about 2.0 * Vitamin D 15.8. Started the patient on 50,000 IU ergocalciferol once weekly for 8 weeks * Iron deficiency anemia. Ferrous sulfate 325 mg BID * Regular diet * DVT prophylaxis: Lovenox Problem List: 1. Vitamin D deficiency 2. Hypokalemia 3. Cellulitis Pain Ratin Pain Location: Right Leg Pain Goal: Pain 4 or less Pain Plan: Pain Pathway Tomorrow's Labs & Rationales: CBC (Infection)
[2017-02-20 08:50] LABS: ABSOLUTE BASOPHIL COUNT 0 /CUMM (0.0-0.2); ABSOLUTE EOSINOPHIL COUNT 0 /CUMM (0.0-0.7); ABSOLUTE MONOCYTE COUNT 0.2 /CUMM (0.10-0.60); BASOPHIL % 0.2 % (0.0-2.0); EOSINOPHIL % 0.4 % (0-5); GRANULOCYTE % 85.3 % (42.2-75.2); HEMATOCRIT 25.7 % (37-47); MEAN CORPUSCULAR HGB CONC 33.7 G/DL (33.0-37.0); MEAN CORPUSCULAR VOLUME 80.1 FL (81.0-99.0); PLATELET COUNT 171 /CUMM (130-400); RBC DISTRIBUTION WIDTH 16.6 % (11.5-14.5); RED BLOOD CELL CT 3.21 /CUMM (4.20-5.40); WHITE BLOOD CELL COUNT 8.2 /CUMM (4.8-10.8)
--- NOTE | 2017-02-20 11:54 | PN- Att Addend ---
Attending MD Review Statement Attending Statement Attending MD Statement: examined this patient, discuss w/resident/PA/UX DEVELOPER, agreed w/resident/PA/UX DEVELOPER, reviewed EMR data (avail), discussed w/nursing Attending Assessment/Plan: Laboratory Tests 02/20/17 0750: Anion Gap 8, Estimated GFR > 60, BUN/Creatinine Ratio 16.7, CBC w Diff MAN DIFF ORDERED, RBC 3.21 L, MCV 80.1 L, MCH 27.0, RDW 16.6 H, MPV 8.0, Gran % 85.3 H, Lymphocytes % 11.8 L, Monocytes % 2.3, Eosinophils % 0.4, Basophils % 0.2, Absolute Granulocytes 7.0 H, Segmented Neutrophils 73, Band Neutrophils 13 H, Absolute Lymphocytes 1.0 L, Lymphocytes 10 L, Monocytes 3, Absolute Monocytes 0.2, Absolute Eosinophils 0, Basophils 1, Absolute Basophils 0, Platelet Estimate ADEQUATE, Hypochromic-Microcytic 1+, Anisocytosis 1+, PUBS MCHC 33.7 Vital Signs Date Time Temp Pulse Resp B/P B/P Pulse O2 O2 Flow FiO2 Mean Ox Delivery Rate 02/20 0647 99.1 82 18 134/70 100 Room Air 07/ 0250 99.0 07/ 0030 98.6 90 132/68 07/03 0018 90 20 132/68 96 Room Air 07/ 2320 99.5 07/ 2212 101.8 98 20 122/84 99 Room Air 07/ 2200 101.8 07/ 1452 100.0 104 18 128/88 98 Recurrent cellulitis RLE- blood cultures growing gram post cocci- added vanco on 02/19. RLE still looking very red and swollen, Pt still had fever of 101.8 as tmax. f/u on culture results . f/u on white count. Encouraged pt to get evaluation by bariatric surgery and go on wt loss program. d/w pt the care plan.
[2017-02-20 14:09] VITALS: BP 122/70
[2017-02-20 22:07] VITALS: BP 128/80
[2017-02-21 06:48] VITALS: BP 130/80
--- NOTE | 2017-02-21 08:03 | PN- Housestaff ---
See Addendum Subjective Follow-up For: Cellulitis Hypokalemia Subjective: I have personally seen and examined the patient today. Denies any fever, chills, nausea or vomiting at this time. She is worried about her leg swelling as it does not seem to be improving. Review of Systems Constitutional: Denies: see HPI. Objective Last 24 Hrs of Vital Signs/I&O Vital Signs Date Time Temp Pulse Resp B/P B/P Pulse O2 O2 Flow FiO2 Mean Ox Delivery Rate 02/21 0648 98.0 98 20 130/80 97 Room Air 02/21 0000 97 Room Air 02/20 2207 98.0 99 18 128/80 97 Room Air 02/20 1409 98.4 94 18 122/70 97 Room Air Intake & Output 02/21 1600 02/21 0800 02/21 0000 Intake Total 950 1000 Output Total Balance 950 1000 Intake, IV 950 1000 Intake, Oral 0 Number 0 Bowel Movements Physical Exam General Appearance: Alert, Oriented X3, Cooperative, No Acute Distress Other Physical Findings: Skin No Rashes HEENT Atraumatic, PERRLA, EOMI Neck Supple, No JVD Cardiovascular Regular Rate, Normal S1, Normal S2, No Murmurs Lungs Clear to Auscultation, Normal Air Movement Abdomen Normal Bowel Sounds, Soft, No Tenderness, No Hepatospenomegaly, No Masses Neurological Normal Gait, Normal Speech, Strength at 5/5 X4 Ext, Normal Tone, Sensation Intact Extremities No Clubbing, No Cyanosis, +3 pitting edema of right leg, Normal Pulses, Normal Capillary Refill Vascular Normal Pulses Current Medications: Current Medications Sig/Juan Carlos Start time Last Medication Dose Route Stop Time Status Admin Acetaminophen 650 MG .STK-MED ONE 02/20 1955 DC PO 02/21 1956 Acetaminophen 650 MG Q6P PRN 02/18 1430 AC 02/20 PO 1953 Ampicillin Sodium/ 3,000 MG Q6 02/18 1800 AC 02/21 Sulbactam Sodium IV 0633 Sodium Chloride 100 ML Enoxaparin Sodium 40 MG DAILY 02/19 1000 AC 02/21 SC 0820 Ergocalciferol 50,000 IU ONCE A WEEK 02/19 1000 AC 02/19 PO 1127 Ferrous Sulfate 325 MG DAILY 02/19 1000 AC 02/21 PO 0820 Ibuprofen 600 MG Q6P PRN 02/18 1430 AC 02/21 PO 0821 Loratadine 10 MG DAILY 02/20 2022 AC 02/21 PO 0820 Morphine Sulfate 2 MG Q4P PRN 02/18 1430 IV Sodium Chloride 1,000 ML .Q8H 02/18 1345 02/21 IV 0630 Vancomycin HCl 2,000 MG Q12 02/19 1044 AC 02/21 Sodium Chloride 500 ML IV 0951 Last 24 Hrs of Lab/Davon Results Last 24 Hrs of Labs/Mics: Laboratory Tests 02/21/17 0832: CBC w Diff NO MAN DIFF REQ, RBC 3.45 L, MCV 79.8 L, MCH 26.5 L, RDW 16.6 H, MPV 8.0, Gran % 73.5, Lymphocytes % 20.0 L, Monocytes % 4.7, Eosinophils % 1.5, Basophils % 0.3, Absolute Granulocytes 5.4, Absolute Lymphocytes 1.5, Absolute Monocytes 0.3, Absolute Eosinophils 0.1, Absolute Basophils 0, PUBS MCHC 33.2 Assessment/Plan Assessment: Ms. Marcial is young woman with a past history of multiple hospital admissions for the treatment of lower extremity cellulitis likely due to venous insufficiency. At the time of admission, vitals-temperature (Tmax) 104.1, pulse rate 122, respiration 18, blood pressure 116/74, pulse ox 96% on room air. Lab findings indicated WBC 15.1, hemoglobin 9.7 (baseline 10.8) iron studies revealed low iron and ferritin with normal TIBC, platelets 206. Normal electrolytes, renal function and liver function was noted. Lactic acid penidng. ESR 48. Glucose 101. Problem list: 1. Cellulitis right lower extremity 2. Gram-positive bacteremia 3. Hypokalemia 4. Vitamin D deficiency Plan: * In the setting of Gram-positive cultures we started the patient on vancomycin for possibility of community-acquired MRSA cellulitis. Will monitor for fevers and white count, follow-up blood cultures and adjust antibiotics accordingly * Magnesium and Potassium repleted. * Vitamin D 15.8. Started the patient on 50,000 IU ergocalciferol once weekly for 8 weeks * Iron deficiency anemia. Ferrous sulfate 325 mg BID * Regular diet * DVT prophylaxis: Lovenox Problem List: 1. Cellulitis 2. Vitamin D deficiency Pain Ratin Pain Location: Right Leg Pain Goal: Pain 4 or less Pain Plan: Pain Pathway Tomorrow's Labs & Rationales: CBC(Cellulitis,Anemia)
[2017-02-21 08:55] LABS: ABSOLUTE BASOPHIL COUNT 0 /CUMM (0.0-0.2); ABSOLUTE EOSINOPHIL COUNT 0.1 /CUMM (0.0-0.7); ABSOLUTE GRANULOCYTE CT 5.4 /CUMM (1.4-6.5); ABSOLUTE LYMPH COUNT 1.5 /CUMM (1.2-3.4); ABSOLUTE MONOCYTE COUNT 0.3 /CUMM (0.10-0.60); BASOPHIL % 0.3 % (0.0-2.0); EOSINOPHIL % 1.5 % (0-5); GRANULOCYTE % 73.5 % (42.2-75.2); HEMATOCRIT 27.5 % (37-47); MEAN CORPUSCULAR HGB 26.5 PG (27.0-31.0); MEAN CORPUSCULAR HGB CONC 33.2 G/DL (33.0-37.0); MEAN CORPUSCULAR VOLUME 79.8 FL (81.0-99.0); PLATELET COUNT 231 /CUMM (130-400); RBC DISTRIBUTION WIDTH 16.6 % (11.5-14.5); RED BLOOD CELL CT 3.45 /CUMM (4.20-5.40); WHITE BLOOD CELL COUNT 7.3 /CUMM (4.8-10.8)
[2017-02-21 14:35] VITALS: BP 110/80
[2017-02-21 22:22] VITALS: BP 130/60
[2017-02-21 22:29] VITALS: BP 110/60
[2017-02-21 23:32] VITALS: BP 122/62
--- NOTE | 2017-02-22 00:24 | NUR ---
AT APPROX 2330 PATIENT COMPLAINED OF MID STERNAL "CHEST PRESSURE" AND "ABDOMINAL FULLNESS" TO LUQ. PATIENT STATED THAT SHE HAS BEEN FEELING THIS DISCOMFORT ON AND OFF FOR A FEW DAYS NOW. MD LUGO AND TON MADE AWARE AND AT BEDSIDE TO ASSESS PATIENT. VSS. WILL CONTINUE TO CLOSELY MONITOR.
[2017-02-22 06:13] VITALS: BP 120/2; BP 120/82
[2017-02-22 09:11] LABS: ABSOLUTE BASOPHIL COUNT 0 /CUMM (0.0-0.2); ABSOLUTE EOSINOPHIL COUNT 0.1 /CUMM (0.0-0.7); ABSOLUTE GRANULOCYTE CT 4.7 /CUMM (1.4-6.5); ABSOLUTE LYMPH COUNT 1.6 /CUMM (1.2-3.4); ABSOLUTE MONOCYTE COUNT 0.5 /CUMM (0.10-0.60); BASOPHIL % 0.3 % (0.0-2.0); EOSINOPHIL % 1.9 % (0-5); GRANULOCYTE % 67.7 % (42.2-75.2); HEMATOCRIT 25.6 % (37-47); MEAN CORPUSCULAR HGB 26.5 PG (27.0-31.0); MEAN CORPUSCULAR HGB CONC 33.4 G/DL (33.0-37.0); MEAN CORPUSCULAR VOLUME 79.3 FL (81.0-99.0); MEAN PLATELET VOLUME 7.7 FL (7.4-10.4); PLATELET COUNT 228 /CUMM (130-400); RBC DISTRIBUTION WIDTH 16.8 % (11.5-14.5); RED BLOOD CELL CT 3.22 /CUMM (4.20-5.40); WHITE BLOOD CELL COUNT 6.9 /CUMM (4.8-10.8)
--- NOTE | 2017-02-22 13:01 | PN- Att Addend ---
Attending Addendum Attending Brief Note 31F PMH chronic lymphedema, morbid obesity, recurrent bilateral LE cellulitis, bipolar disorder admitted with RLE cellulitis, septic on admission with temp 104 and WBC 15, now improving on Cefazolin. AFVSS NAD Anicteric, MMM Supple RRR no m/r/g CTAB Soft, NTND RLE is erythematous and warm to just above ankle, no discharge present Pulses intact A&Ox3 no focal deficits Current Medications Sig/Juan Carlos Start time Last Medication Dose Route Stop Time Status Admin Acetaminophen 650 MG Q6P PRN 02/18 1430 AC 02/20 PO 1954 Ampicillin Sodium/ 3,000 MG Q6 02/18 1800 AC 02/22 Sulbactam Sodium IV 1114 Sodium Chloride 100 ML Enoxaparin Sodium 40 MG DAILY 02/19 1000 AC 02/22 SC 0936 Ergocalciferol 50,000 IU ONCE A WEEK 02/19 1000 AC 02/19 PO 1127 Ferrous Sulfate 325 MG DAILY 02/19 1000 AC 02/22 PO 0936 Furosemide 20 MG DAILY 02/21 1431 AC 02/22 PO 0936 Ibuprofen 600 MG Q6P PRN 02/18 1430 AC 02/22 PO 0637 Loratadine 10 MG DAILY 02/20 2022 AC 02/22 PO 0936 Morphine Sulfate 2 MG Q4P PRN 02/18 1430 AC IV Ondansetron HCl 4 MG .STK-MED ONE 02/21 1422 DC PO 02/21 1423 Sodium Chloride 1,000 ML .Q8H 02/18 1345 DC 02/21 IV 0630 Laboratory Tests 02/22 0800 Chemistry Sodium (137 - 145 mmol/L) 139 Potassium (3.5 - 5.1 mmol/L) 4.1 Chloride (98 - 107 mmol/L) 106 Carbon Dioxide (22 - 30 mmol/L) 26 Anion Gap (5 - 16) 7 BUN (7 - 17 mg/dL) 7 Creatinine (0.5 - 1.0 mg/dL) 0.7 Estimated GFR (>60 ml/min) > 60 BUN/Creatinine Ratio (7 - 25 %) 10.0 Hematology CBC w Diff NO MAN DIFF REQ WBC (4.8 - 10.8 /CUMM) 6.9 RBC (4.20 - 5.40 /CUMM) 3.22 L Hgb (12.0 - 16.0 G/DL) 8.6 L Hct (37 - 47 %) 25.6 L MCV (81.0 - 99.0 FL) 79.3 L MCH (27.0 - 31.0 PG) 26.5 L RDW (11.5 - 14.5 %) 16.8 H Plt Count (130 - 400 /CUMM) 228 MPV (7.4 - 10.4 FL) 7.7 Gran % (42.2 - 75.2 %) 67.7 Lymphocytes % (20.5 - 51.1 %) 23.3 Monocytes % (1.7 - 9.3 %) 6.8 Eosinophils % (0 - 5 %) 1.9 Basophils % (0.0 - 2.0 %) 0.3 Absolute Granulocytes (1.4 - 6.5 /CUMM) 4.7 Absolute Lymphocytes (1.2 - 3.4 /CUMM) 1.6 Absolute Monocytes (0.10 - 0.60 /CUMM) 0.5 Absolute Eosinophils (0.0 - 0.7 /CUMM) 0.1 Absolute Basophils (0.0 - 0.2 /CUMM) 0 PUBS MCHC (33.0 - 37.0 G/DL) 33.4 Vital Signs Date Time Temp Pulse Resp B/P B/P Pulse O2 O2 Flow FiO2 Mean Ox Delivery Rate 02/22 0613 98.0 72 18 120/82 98 Room Air 07/ 2332 97.9 84 20 122/62 100 Room Air 07/ 2229 98.0 87 20 110/60 99 07/04 2222 97.8 68 20 130/60 95 07/04 1435 97.8 80 20 110/80 99 Room Air Intake & Output 07 1600 07/05 0800 07/05 0000 Intake Total 620 Output Total Balance 620 Intake, IV 260 Intake, Oral 360 1. RLE cellulitis 2. Sepsis (resolved) 3. Morbid obesity 4. Chronic lymphedema 5. Iron deficiency anemia Plan - Continue on general medicine - Continue Cefazolin - Monitor for improvement of erythema - Follow blood cultures - Leg elevation - Continue home medications - Nutrition consult - DVT PPx - Anticipated discharge tomorrow. Will give Augmentin to complete 14 total days of antibiotics. Please place anticipated discharge order and send CMR to pharmacy for review - No labs tomorrow
--- NOTE | 2017-02-22 13:23 | PN- Housestaff ---
Subjective Follow-up For: Cellulitis Hypokalemia Subjective: I have personally seen and examined the patient today. Denies any overnight events, fever, chills, nausea or vomiting at this time. Patient wants to go home today, discussed the plan with her. Review of Systems Constitutional: Denies: see HPI. Objective Last 24 Hrs of Vital Signs/I&O Vital Signs Date Time Temp Pulse Resp B/P B/P Pulse O2 O2 Flow FiO2 Mean Ox Delivery Rate 02/22 1504 98.5 83 18 120/84 99 / 0613 98.0 72 18 120/82 98 Room Air 02/21 2332 97.9 84 20 122/62 100 Room Air 02/21 2229 98.0 87 20 110/60 99 / 2222 97.8 68 20 130/60 95 Intake & Output 02/22 1600 02/22 0800 07 0000 Intake Total 850 620 Output Total Balance 850 620 Intake, IV 130 260 Intake, Oral 720 360 Physical Exam General Appearance: Alert, Oriented X3, Cooperative, No Acute Distress Other Physical Findings: Skin No Rashes HEENT Atraumatic, PERRLA, EOMI Neck Supple, No JVD Cardiovascular Regular Rate, Normal S1, Normal S2, No Murmurs Lungs Clear to Auscultation, Normal Air Movement Abdomen Normal Bowel Sounds, Soft, No Tenderness, No Hepatospenomegaly, No Masses Neurological Normal Gait, Normal Speech, Strength at 5/5 X4 Ext, Normal Tone, Sensation Intact Extremities No Clubbing, No Cyanosis, Erythema and +3 pitting edema of right leg , Normal Pulses, Normal Capillary Refill Vascular Normal Pulses Current Medications: Current Medications Sig/Juan Carlos Start time Last Medication Dose Route Stop Time Status Admin Acetaminophen 650 MG Q6P PRN 02/18 1430 AC 02/20 PO 1954 Ampicillin Sodium/ 3,000 MG Q6 02/18 1800 AC 02/22 Sulbactam Sodium IV 1114 Sodium Chloride 100 ML Enoxaparin Sodium 40 MG DAILY 02/19 1000 AC 02/22 SC 0936 Ergocalciferol 50,000 IU ONCE A WEEK 02/19 1000 AC 02/19 PO 1127 Ferrous Sulfate 325 MG DAILY 02/19 1000 AC 02/22 PO 0936 Furosemide 20 MG DAILY 02/21 1431 AC 02/22 PO 0936 Ibuprofen 600 MG Q6P PRN 02/18 1430 AC 02/22 PO 0637 Loratadine 10 MG DAILY 02/20 2022 AC 02/22 PO 0936 Morphine Sulfate 2 MG Q4P PRN 02/18 143 AC IV Last 24 Hrs of Lab/Davon Results Last 24 Hrs of Labs/Mics: Laboratory Tests 02/22/17 0800: Anion Gap 7, Estimated GFR > 60, BUN/Creatinine Ratio 10.0, CBC w Diff NO MAN DIFF REQ, RBC 3.22 L, MCV 79.3 L, MCH 26.5 L, RDW 16.8 H, MPV 7.7, Gran % 67.7, Lymphocytes % 23.3, Monocytes % 6.8, Eosinophils % 1.9, Basophils % 0.3, Absolute Granulocytes 4.7, Absolute Lymphocytes 1.6, Absolute Monocytes 0.5, Absolute Eosinophils 0.1, Absolute Basophils 0, PUBS MCHC 33.4 Assessment/Plan Assessment: Ms. Marcial is young woman with a past history of multiple hospital admissions for the treatment of lower extremity cellulitis likely due to venous insufficiency. At the time of admission, vitals-temperature (Tmax) 104.1, pulse rate 122, respiration 18, blood pressure 116/74, pulse ox 96% on room air. Lab findings indicated WBC 15.1, hemoglobin 9.7 (baseline 10.8) iron studies revealed low iron and ferritin with normal TIBC, platelets 206. Normal electrolytes, renal function and liver function was noted. Lactic acid penidng. ESR 48. Glucose 101. Problem list: 1. Cellulitis right lower extremity 2. Gram-positive bacteremia 3. Hypokalemia 4. Vitamin D deficiency Plan: * We discontinued her Vancomycin because the blood cultures showed BETA STREP GROUP A.Will continue IV unasyn (that provides good coverage for Beta Strep). Will monitor for fevers and white count. * Magnesium and Potassium repleted. * Vitamin D 15.8. Started the patient on 50,000 IU ergocalciferol once weekly for 8 weeks * Iron deficiency anemia. Ferrous sulfate 325 mg BID * Regular diet * DVT prophylaxis: Lovenox Problem List: 1. Vitamin D deficiency 2. Anemia 3. Cellulitis Pain Ratin Pain Location: RLE Pain Goal: Pain 4 or less Pain Plan: Pain Pathway Tomorrow's Labs & Rationales: CBC(Cellulitis)
[2017-02-22 15:04] VITALS: BP 120/84
[2017-02-22 22:32] VITALS: BP 118/78
[2017-02-22] MEDS ORDERED: VITAMIN D1000 UNIT PO (22:40)
[2017-02-22] MEDS ORDERED: VITAMIN D250000 UNIT PO (22:40)
[2017-02-22] MEDS ORDERED: AUGMENTIN 875-1 EACH PO (22:40)
--- NOTE | 2017-02-22 22:45 | Patient Discharge Instructions ---
Discharge Instructions General Discharge Information You were seen/treated for: Cellulitis/skin infection of the lower leg Chronic swelling/edema of the lower extremities Low vitamin D level Watch for these problems: Worsening redness in the lower legs. Fevers, chills Special Instructions: Please take all medications as directed. Please follow-up with your PCP within one week after discharge. Please follow-up with the wound care department for management of lower leg edema. Diet Recommended Diet: Heart Healthy Activity Activity Self Limited: Yes Acute Coronary Syndrome Inclusion Criteria At DC or during hospital stay patient has or had the following: ACS DIAGNOSIS No Discharge Core Measures Meds if any: Prescribed or Continued at Discharge Meds if any: NOT Prescribed or Continued at Discharge Congestive Heart Failure Inclusion Criteria At DC or during hospital stay patient has or had the following: CHF DIAGNOSIS No Discharge Core Measures Meds if any: Prescribed or Continued at Discharge Meds if any: NOT Prescribed or Continued at Discharge Cerebrovascular accident Inclusion Criteria At DC or during hospital stay patient has or had the following: CVA/TIA Diagnosis No Discharge Core Measures Meds if any: Prescribed or Continued at Discharge Meds if any: NOT Prescribed or Continued at Discharge Venous thromboembolism Inclusion Criteria VTE Diagnosis No VTE Type NONE VTE Confirmed by (Test) NONE Discharge Core Measures - Per Current guidelines, there needs to be overlap - treatment for the first 5 days of Warfarin therapy. - If discharged on Warfarin prior to 5 days of - overlap therapy, the patient will need to be - assessed for post discharge needs including - *Post discharge parental anticoagulation - *Warfarin and/or parental anticoagulation education - *Follow up date to check INR post discharge At least 5 days overlap therapy as Inpatient No Meds if any: Prescribed or Continued at Discharge Note: Overlap Therapy is Warfarin and Anticoagulant Meds if any: NOT Prescribed or Continued at Discharge
[2017-02-23 06:49] VITALS: BP 122/74
--- NOTE | 2017-02-23 07:58 | PN- Housestaff ---
OLIVIA ESCOBAR,[facility] 02/23/17 0757: Subjective Follow-up For: Cellulitis Hypokalemia Subjective: I have personally seen and examined the patient today. Denies any overnight events, fever, chills, nausea or vomiting at this time. Patient wants to go home but willing to stay for another day to be seen by the wound care. Review of Systems Constitutional: Denies: see HPI. Objective Last 24 Hrs of Vital Signs/I&O Vital Signs Date Time Temp Pulse Resp B/P B/P Pulse O2 O2 Flow FiO2 Mean Ox Delivery Rate 02/23 1405 97.5 90 20 138/78 99 Room Air 02/23 0649 98.8 79 20 122/74 97 Room Air 02/22 2232 99.0 80 20 118/78 98 Room Air Intake & Output 02/23 1600 02/23 0800 02/23 0000 Intake Total 850 130 440 Output Total Balance 850 130 440 Intake, IV 130 130 160 Intake, Oral 720 280 Patient 415 lb Weight Physical Exam General Appearance: Alert, Oriented X3, Cooperative Other Physical Findings: Skin No Rashes HEENT Atraumatic, PERRLA, EOMI Neck Supple, No JVD Cardiovascular Regular Rate, Normal S1, Normal S2, No Murmurs Lungs Clear to Auscultation, Normal Air Movement Abdomen Normal Bowel Sounds, Soft, No Tenderness, No Hepatospenomegaly, No Masses Neurological Normal Gait, Normal Speech, Strength at 5/5 X4 Ext, Normal Tone, Sensation Intact Extremities No Clubbing, No Cyanosis, Erythema and +3 pitting edema of right leg , Normal Pulses, Normal Capillary Refill Vascular Normal Pulses Current Medications: Current Medications Sig/Juan Carlos Start time Last Medication Dose Route Stop Time Status Admin Acetaminophen 650 MG Q6P PRN 02/18 1430 AC 02/20 PO 1954 Ampicillin Sodium/ 3,000 MG Q6 02/23 0600 AC 02/23 Sulbactam Sodium IV 1132 Sodium Chloride 100 ML Ampicillin Sodium/ 3,000 MG Q6 02/18 1800 DC 02/22 Sulbactam Sodium IV 1746 Sodium Chloride 100 ML Enoxaparin Sodium 40 MG DAILY 02/19 1000 AC 02/23 SC 0848 Ergocalciferol 50,000 IU ONCE A WEEK 02/19 1000 AC 02/19 PO 1127 Ferrous Sulfate 325 MG DAILY 02/19 1000 AC 02/23 PO 0847 Furosemide 20 MG DAILY 02/21 1431 AC 02/23 PO 0847 Ibuprofen 600 MG .STK-MED ONE 02/22 1809 DC PO 02/22 1810 Ibuprofen 600 MG Q6P PRN 02/18 1430 AC 02/23 PO 0847 Loratadine 10 MG DAILY 02/20 202 AC 02/23 PO 0847 Morphine Sulfate 2 MG Q4P PRN 02/18 1430 AC IV Last 24 Hrs of Lab/Davon Results Last 24 Hrs of Labs/Mics: Laboratory Tests 02/23/1733: CBC w Diff NO MAN DIFF REQ, RBC 3.50 L, MCV 79.1 L, MCH 26.5 L, RDW 16.2 H, MPV 7.7, Gran % 70.5, Lymphocytes % 21.6, Monocytes % 6.6, Eosinophils % 1.1, Basophils % 0.2, Absolute Granulocytes 6.0, Absolute Lymphocytes 1.8, Absolute Monocytes 0.6, Absolute Eosinophils 0.1, Absolute Basophils 0, PUBS MCHC 33.4 Assessment/Plan Assessment: Ms. Marcial is young woman with a past history of multiple hospital admissions for the treatment of lower extremity cellulitis likely due to venous insufficiency. At the time of admission, vitals-temperature (Tmax) 104.1, pulse rate 122, respiration 18, blood pressure 116/74, pulse ox 96% on room air. Lab findings indicated WBC 15.1, hemoglobin 9.7 (baseline 10.8) iron studies revealed low iron and ferritin with normal TIBC, platelets 206. Normal electrolytes, renal function and liver function was noted. Lactic acid penidng. ESR 48. Glucose 101. Problem list: 1. Cellulitis right lower extremity 2. Gram-positive bacteremia 3. Hypokalemia 4. Vitamin D deficiency Plan: * We discontinued her Vancomycin because the blood cultures showed BETA STREP GROUP A.Will continue IV unasyn (that provides good coverage for Beta Strep). Will monitor for fevers and white count. * Vascular and Wound Care consulted, awaiting their recommendations. * Magnesium and Potassium repleted. * Vitamin D 15.8. Started the patient on 50,000 IU ergocalciferol once weekly for 8 weeks * Iron deficiency anemia. Ferrous sulfate 325 mg BID * Regular diet * DVT prophylaxis: Lovenox Problem List: 1. Cellulitis 2. Vitamin D deficiency 3. Anemia Pain Ratin Pain Location: RLE Pain Goal: Pain 4 or less Pain Plan: Pain Pathway Tomorrow's Labs & Rationales: CBC (Cellulitis) CAROLYN ESCOBARRAULNABILA 02/23/17 1227: Attending MD Review Statement Attending Statement Attending MD Statement: examined this patient, discuss w/resident/PA/LEAD GAME DESIGNER, agreed w/resident/PA/LEAD GAME DESIGNER, reviewed EMR data (avail) Attending Assessment/Plan: 31F PMH chronic lymphedema, morbid obesity, recurrent bilateral LE cellulitis, bipolar disorder admitted with RLE cellulitis, septic on admission with temp 104 and WBC 15, now improving on Cefazolin. Today her leg is slightly less red and warm than yesterday. There is new erythema on her posterior calf consistent with shearing/friction from the bed. 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 AFVSS NAD Anicteric, MMM Supple RRR no m/r/g CTAB Soft, NTND RLE is erythematous and warm to just above ankle, no discharge present Pulses intact A&Ox3 no focal deficits 1. RLE cellulitis 2. Sepsis (resolved) 3. Morbid obesity 4. Chronic lymphedema 5. Iron deficiency anemia Plan - Continue on general medicine - Obtain vascular consult - Obtain wound care consult - Continue Cefazolin - Monitor for improvement of erythema - Follow blood cultures - Leg elevation - Continue home medications - Nutrition consult - DVT PPx - Recheck CBC tomorrow - If improvement in erythema, will discharge tomorrow
[2017-02-23 08:34] LABS: ABSOLUTE BASOPHIL COUNT 0 /CUMM (0.0-0.2); ABSOLUTE EOSINOPHIL COUNT 0.1 /CUMM (0.0-0.7); ABSOLUTE LYMPH COUNT 1.8 /CUMM (1.2-3.4); ABSOLUTE MONOCYTE COUNT 0.6 /CUMM (0.10-0.60); BASOPHIL % 0.2 % (0.0-2.0); EOSINOPHIL % 1.1 % (0-5); GRANULOCYTE % 70.5 % (42.2-75.2); HEMATOCRIT 27.7 % (37-47); MEAN CORPUSCULAR HGB 26.5 PG (27.0-31.0); MEAN CORPUSCULAR HGB CONC 33.4 G/DL (33.0-37.0); MEAN CORPUSCULAR VOLUME 79.1 FL (81.0-99.0); MEAN PLATELET VOLUME 7.7 FL (7.4-10.4); PLATELET COUNT 265 /CUMM (130-400); RBC DISTRIBUTION WIDTH 16.2 % (11.5-14.5); WHITE BLOOD CELL COUNT 8.4 /CUMM (4.8-10.8)
[2017-02-23 14:05] VITALS: BP 138/78
--- NOTE | 2017-02-23 18:14 | Cons- Vascular Surgery ---
General Information and HPI Consulting Request Date of Consult: 02/23/17 Requested By: LORI LEON MD History of Present Illness: Patient is a 31-year-old lady who presented with right leg cellulitis. She was also found to have positive blood cultures with gram-positive cocci. She is on appropriate antibiotics. She has a history of obesity and lymphedema. She's had multiple right leg cellulitis in the last 7 years. He also had about 3 episodes of cellulitis on the left leg. I was asked to see the patient regarding lymphedema and recommendation for treatment. Allergies/Medications Allergies: Coded Allergies: No Known Allergies (02/18/17) Home Med List: Amoxicillin/Potassium Clav (Augmentin 875-125 Tablet) 875 MG-125 MG TABLET 1 TAB PO BID Cellulitis Cetirizine HCl (Zyrtec) 10 MG TABLET 1 TAB PO DAILY NEEDED PRN RHINITIS Cholecalciferol (Vitamin D3) (Vitamin D) 1,000 UNIT TABLET 1 TAB PO DAILY Vitamin D deficiency Ergocalciferol (Vitamin D2) (Vitamin D2) 50,000 UNIT CAPSULE 1 CAP PO ONCE A WEEK Vitamin D deficiency Ferrous Sulfate 325 MG (65 MG IRON) TABLET 1 TAB PO DAILY SUPPLEMENT ( Reported) Furosemide (Lasix) 20 MG TABLET 1 TAB PO EOD FLUID RETENTION (Reported) Naproxen Sodium (Aleve) 220 MG TABLET 2 TAB PO PRN PAIN (Reported) Past History Medical History Neurological: NONE EENT: sinusitis Cardiovascular: NONE Respiratory: ASTHMA LIKE SYMPTOMS WHEN SICK Gastrointestinal: NONE Hepatic: NONE Renal: NONE Musculoskeletal: CELLULITIS Psychiatric: NONE Endocrine: LYMPHEDEMA Blood Disorders: anemia Cancer(s): NONE CATTLE SORTER/Reproductive: TUBAL LIGATION Surgical History Pertinent Surgical History: appendectomy, , TUBAL LIGATION ULNAR SHORTENING Family History Relations & Conditions If Any: Relation not specified for: *No pertinent family history Psychosocial History Services at Home: None Smoking Status: Never Smoked ETOH Use: denies use Illicit Drug Use: denies illicit drug use Living Will? yes Functional Ability ADLs Independent: dressing, eating, toileting, bathing. Ambulation: independent IADLs Independent: shopping, housework, finances, food prep, telephone, transportation , medication admin. Review of Systems Review of Systems: Patient denies headache, dizziness, cough, palpitation, diarrhea or constipation Exam & Diagnostic Data Vital Signs and I&O Vital Signs Date Time Temp Pulse Resp B/P B/P Pulse O2 O2 Flow FiO2 Mean Ox Delivery Rate 02/23 1405 97.5 90 20 138/78 99 Room Air 02/23 0649 98.8 79 20 122/74 97 Room Air 02/22 2232 99.0 80 20 118/78 98 Room Air Intake & Output 02/23 1600 02/23 0800 07/ 0000 / 1600 02/22 0800 02/22 0000 Intake Total 850 130 440 850 620 Output Total Balance 850 130 440 850 620 Intake, IV 130 130 160 130 260 Intake, Oral 720 280 720 360 Patient 415 lb Weight Physical Exam: Patient is alert and oriented 3 Lungs: Clear to auscultation bilaterally Heart: Regular rate and rhythm Abdomen: Obese, nontender nondistended, soft Extremities: There is redness and warmth of the right leg. Bilateral legs are swollen. The right leg is significantly more swollen than left. There are no ulcers. Assessment/Plan Assessment/Plan 31-year-old lady with multiple episodes of lower extremity cellulitis presents with an acute onset of right leg cellulitis. She was found to have positive blood cultures and is on appropriate antibiotics. Recommendation would be to have the patient be seen at the [facility] for appropriate timing of compression and/or sequential compression pumps at home. No urgent vascular surgery issues at this time. I will continue to follow her as outpatient Thank you for asking me to be involved in the care of this patient Consult Acknowledgment - Thank you for your consult request. Attending MD Review Statement Attending Statement Attending MD Statement: examined this patient, discuss w/resident/PA/DINKEY MECHANIC
--- NOTE | 2017-02-23 19:42 | NUR ---
ALERT AND ORIENTED X 3. ON ROOM AIR. DENIES SHORTNESS OF BREATH VITAL SIGNS STABLE. DENIES CHEST PAIN. + PULSES. DENIES NUMBNESS/TINGLING REDNESS TO RLE. +3 EDEMA TO RLE. +2 EDEMA TO LLE. STEADY GAIT. MEDICATION GIVEN FOR DISCOMFORT. WILL CONTINUE TO MONITOR
[2017-02-23 22:08] VITALS: BP 112/74
[2017-02-24 06:52] VITALS: BP 120/60
--- NOTE | 2017-02-24 08:15 | PN- Housestaff ---
OLIVIA ESCOBAR,ELISEO 02/24/17 0815: Subjective Follow-up For: Cellulitis Hypokalemia Subjective: I have personally seen and examined the patient today. Patient is sitting comfortably in her bed. Denies any overnight events, fever, chills, nausea or vomiting at this time. Review of Systems Constitutional: Denies: see HPI. Objective Last 24 Hrs of Vital Signs/I&O Vital Signs Date Time Temp Pulse Resp B/P B/P Pulse O2 O2 Flow FiO2 Mean Ox Delivery Rate 02/24 0942 97.5 02/24 0652 99.0 81 20 120/60 96 Room Air 02/23 2208 99.1 90 20 112/74 96 Room Air Intake & Output 02/24 1600 02/24 0800 02/24 0000 Intake Total 220 400 Output Total Balance 220 400 Intake, IV 220 Intake, Oral 400 Physical Exam General Appearance: Alert, Oriented X3, Cooperative Other Physical Findings: Skin No Rashes HEENT Atraumatic, PERRLA, EOMI Neck Supple, No JVD Cardiovascular Regular Rate, Normal S1, Normal S2, No Murmurs Lungs Clear to Auscultation, Normal Air Movement Abdomen Normal Bowel Sounds, Soft, No Tenderness, No Hepatospenomegaly, No Masses Neurological Normal Gait, Normal Speech, Strength at 5/5 X4 Ext, Normal Tone, Sensation Intact Extremities No Clubbing, No Cyanosis, Erythema and +3 pitting edema of right leg , Normal Pulses, Normal Capillary Refill Vascular Normal Pulses Current Medications: Current Medications Sig/Juan Carlos Start time Last Medication Dose Route Stop Time Status Admin Acetaminophen 650 MG Q6P PRN 02/18 1430 DCD 02/20 PO 1954 Ampicillin Sodium/ 3,000 MG Q6 02/23 0600 DCD 02/24 Sulbactam Sodium IV 1139 Sodium Chloride 100 ML Enoxaparin Sodium 40 MG DAILY 02/19 1000 DCD 02/24 SC 0935 Ergocalciferol 50,000 IU ONCE A WEEK 02/19 1000 DCD 02/19 PO 1127 Ferrous Sulfate 325 MG DAILY 02/19 1000 DCD 02/24 PO 0935 Furosemide 20 MG DAILY 02/21 1431 DCD 02/24 PO 0935 Ibuprofen 400 MG .STK-MED ONE 02/24 0543 DC PO 02/24 0544 Ibuprofen 600 MG Q6P PRN 02/18 1430 DCD 02/24 PO 1139 Loratadine 10 MG DAILY 02/20 2022 DCD 02/24 PO 0935 Morphine Sulfate 2 MG Q4P PRN 02/18 1430 DCD IV Assessment/Plan Assessment: Ms. Marcial is young woman with a past history of multiple hospital admissions for the treatment of lower extremity cellulitis likely due to venous insufficiency. At the time of admission, vitals-temperature (Tmax) 104.1, pulse rate 122, respiration 18, blood pressure 116/74, pulse ox 96% on room air. Lab findings indicated WBC 15.1, hemoglobin 9.7 (baseline 10.8) iron studies revealed low iron and ferritin with normal TIBC, platelets 206. Normal electrolytes, renal function and liver function was noted. Lactic acid penidng. ESR 48. Glucose 101. Problem list: 1. Cellulitis right lower extremity 2. Gram-positive bacteremia 3. Hypokalemia 4. Vitamin D deficiency Plan: * We discontinued her Vancomycin because the blood cultures showed BETA STREP GROUP A.Will continue IV unasyn (that provides good coverage for Beta Strep). Will monitor for fevers and white count. * will follow as an outpatient for her lymphedema. * Magnesium and Potassium repleted. * Vitamin D 15.8. Started the patient on 50,000 IU ergocalciferol once weekly for 8 weeks * Iron deficiency anemia. Ferrous sulfate 325 mg BID * Regular diet * DVT prophylaxis: Lovenox Problem List: 1. Cellulitis 2. Lymphedema 3. Anemia 4. Vitamin D deficiency Pain Ratin Pain Location: RLE Pain Goal: Pain 4 or less Pain Plan: Pain Pathway Tomorrow's Labs & Rationales: None(Discharged) LORI LEON MD 02/24/17 1118: Attending MD Review Statement Attending Statement Attending MD Statement: examined this patient, discuss w/resident/PA/BIOFUELS PLANT CONSTRUCTION WORKER, agreed w/resident/PA/BIOFUELS PLANT CONSTRUCTION WORKER, reviewed EMR data (avail) Attending Assessment/Plan: 31F PMH chronic lymphedema, morbid obesity, recurrent bilateral LE cellulitis, bipolar disorder admitted with RLE cellulitis, septic on admission with temp 104 and WBC 15, now improving on Cefazolin. Today her leg is slightly less red and warm than yesterday. There is new erythema on her posterior calf consistent with shearing/friction from the bed. 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 1. RLE cellulitis 2. Sepsis (resolved) 3. Morbid obesity 4. Chronic lymphedema 5. Iron deficiency anemia Plan - Stable for discharge home - Continue Cephalexin for an additional 14 days - Leg elevation at all times - Continue home medications - Will follow up with vascular surgery in wound care clinic next week for possible compression - Would recommend no work for at least 2 weeks until erythema completely subsides
--- NOTE | 2017-02-24 09:53 | NUR ---
PATIENT QUESTIONING IF NEEDS LABS DRAWN PRIOR TO D/C, SPOKE WITH MEDICAL TEAM AND DO NOT FEEL THEY ARE NECESSARY- PATIENT AWARE, MD TEAM ROUNDING NOW, HELLEN D/C LATER TODAY
[2017-02-24] MEDS ORDERED: VITAMIN D1000 UNIT PO (11:52)
[2017-02-24] MEDS ORDERED: VITAMIN D250000 UNIT PO (11:52)
[2017-02-24] MEDS ORDERED: AUGMENTIN 875-1 EACH PO (11:52)
--- NOTE | 2017-02-24 16:52 | Discharge Summary ---
See Addendum Visit Information Visit Dates Admission Date: 02/18/17 Discharge Date: 02/24/17 Hospital Course Course Attending Physician: LORI LEON MD Primary Care Physician: IQRA VASQUEZ APRN Hospital Course: Ms. Marcial is young woman with a past history of multiple hospital admissions for the treatment of lower extremity cellulitis likely due to venous insufficiency presents to the hospital with RLE redness, warmth, tenderness. She was treated for the following problems. #1 Right lower extremity swelling, redness, and tenderness-Non purulent RLE cellulitis: Patient was started on IV unasyn and vancomycin but vancomycin was discontinued after her blood cultures showed BETA STREP GROUP A.She was sent home on augmentin (875-125mg) PO BID x 7 days(total of 14 days). PAtient will follow up with Dr. Holt as an outpatient. #Lymphedema: -Vascular consulted. does not recommend any urgent intervention at this time. Will follow as an outpatient. -Wound care consulted: Patient will follow up with Dr. Holt as an outpatient. -Patient is on 20mg Lasix PO daily. # Obesity- Normal HbA1c and TSH in the past. Referral to weight loss clinic on the outside. # Vitamin D Deficiency: Vit D level--> 15.8. Patient started on 50,000 IU ergocalciferol once weekly for 8 weeks and Cholecalciferol 1000 until PO daily. # Iron deficiency anemia: Started on Ferrous sulfate 325 mg 1 tab PO Daily. Allergies: Coded Allergies: No Known Allergies (02/18/17) Significant Procedures: XRAY-RIGHT TIBIA-FIBULA IMPRESSION: No soft tissue air. No bony finding. Pertinent Lab Results: Vit D--> 15.8 Disposition Summary Disposition Principal Diagnosis: Cellulitis/skin infection of the Right lower leg Additional Diagnosis: Chronic swelling/edema of the lower extremities Low vitamin D level Anemia Discharge Disposition: home or self care Discharge Instructions General Discharge Information Code Status: Full Code Patient's Diet: Regular Patient's Activity: As Tolerated. Follow-Up Instructions/Appts: Please take all medications as directed. Please follow-up with your PCP within one week after discharge. Please follow-up with the wound care department for management of lower leg edema. Medications at Discharge Discharge Medications: Continue taking these medications: Ferrous Sulfate (Ferrous Sulfate) 325 MG (65 MG IRON) TABLET 1 Tablet ORAL DAILY Comments: Last Taken:02/24/17 Time:934 Naproxen Sodium (Aleve) 220 MG TABLET 2 Tablet ORAL as needed for PAIN Comments: NOT GIVEN IN HOSPITAL Cetirizine HCl (Zyrtec) 10 MG TABLET 1 Tablet ORAL DAILY NEEDED as needed for RHINITIS Qty = 30 Comments: NOT GIVEN IN HOSPITAL Furosemide (Lasix) 20 MG TABLET 1 Tablet ORAL Every other day Comments: Last Taken:02/24/17 Time:934 Start taking the following new medications: Amoxicillin/Potassium Clav (Augmentin 875-125 Tablet) 875 MG-125 MG TABLET 1 Tablet ORAL TWICE DAILY Qty = 14 No Refills Cholecalciferol (Vitamin D3) (Vitamin D) 1,000 UNIT TABLET 1 Tablet ORAL DAILY Qty = 30 No Refills Instructions: . Ergocalciferol (Vitamin D2) (Vitamin D2) 50,000 UNIT CAPSULE 1 Capsule ORAL ONCE A WEEK Qty = 7 No Refills Instructions: . Copies To: CARLOS ESCOBAR,KRISTINE Plascencia; IQRA VASQUEZ APRN; PHILOMENA ESCOBAR,EVELYN Attending MD Review Statement Documenting Attending: LORI LEON MD
== END 2017-02-24 13:38 | DRG 872 ==
LOC: ERH 11:22 → 2NA 13:31 → ERHI 13:31 → ENRESERV 14:10 → ENTRNSPT 15:42 → 2NA 16:06 → CMPTRNSPT 16:13 → 2NA 02-19 07:21 → ENPENDDIS 02-24 11:54 → 2NA 02-24 13:38
PROVIDERS: Emergency Medicine; Internal Medicine; Internal Medicine Hematology & Oncology; ADMIT Internal Medicine
DX: A41.9 Sepsis, unspecified organism (principal); E66.01 Morbid (severe) obesity due to excess calories; L03.115 Cellulitis of right lower limb; E55.9 Vitamin D deficiency, unspecified; I89.0 Lymphedema, not elsewhere classified; E87.6 Hypokalemia; D50.9 Iron deficiency anemia, unspecified; B95.62 Methicillin resistant Staphylococcus aureus infection as the cause of diseases classified elsewhere; I87.2 Venous insufficiency (chronic) (peripheral); F31.9 Bipolar disorder, unspecified
CPT/HCPCS: 2NAP; 36415; 73590-RT; 82436; 87040; 87147; 93005; 93010; 96374; 96375; J0131; J0690; J0696; J1650; J2405; J3101; J3370; J7040

== ENCOUNTER 2018-04-01 16:51 | Emergency (ER) | payer OTHER ==
[~2018-04-01 16:51] MED LIST changes: +AUGMENTIN 875-1 EACH PO; +LASIX20 M1 PO; +VITAMIN D1000 UNIT PO; +VITAMIN D250000 UNIT PO
[2018-04-01 17:35] LABS: ABSOLUTE BASOPHIL COUNT 0 /CUMM (0.0-0.2); ABSOLUTE EOSINOPHIL COUNT 0 /CUMM (0.0-0.7); ABSOLUTE GRANULOCYTE CT 13.1 /CUMM (1.4-6.5); ABSOLUTE LYMPH COUNT 0.8 /CUMM (1.2-3.4); ABSOLUTE MONOCYTE COUNT 0.5 /CUMM (0.10-0.60); BASOPHIL % 0 % (0.0-2.0); EOSINOPHIL % 0.1 % (0-5); HEMATOCRIT 35.3 % (37-47); MEAN CORPUSCULAR HGB 27.3 PG (27.0-31.0); MEAN CORPUSCULAR HGB CONC 33.9 G/DL (33.0-37.0); MEAN CORPUSCULAR VOLUME 80.6 FL (81.0-99.0); MEAN PLATELET VOLUME 7.9 FL (7.4-10.4); PLATELET COUNT 248 /CUMM (130-400); RBC DISTRIBUTION WIDTH 14.8 % (11.5-14.5); RED BLOOD CELL CT 4.38 /CUMM (4.20-5.40); WHITE BLOOD CELL COUNT 14.4 /CUMM (4.8-10.8)
[2018-04-01 17:49] LABS: GRANULOCYTE % 91.2 % (42.2-75.2)
[2018-04-01 18:18] VITALS: BP 126/88
--- NOTE | 2018-04-01 18:58 | ED GENERAL ADULT ---
History of Present Illness General Chief Complaint: Nausea, Vomiting, Diarrhea Stated Complaint: +NV, CHILLS, FATIGUE. 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 Exam Limitations: no limitations Vital Signs & Intake/Output Vital Signs & Intake/Output Vital Signs Date Time Temp Pulse Resp B/P B/P Pulse O2 O2 Flow FiO2 Mean Ox Delivery Rate 04/01 1818 99.8 76 18 126/88 98 Room Air 04/01 1816 99.8 04/01 1728 100.1 04/01 1702 100.1 124 18 127/73 96 Room Air Allergies Coded Allergies: No Known Allergies (02/18/17) Reconcile Medications Amoxicillin/Potassium Clav (Augmentin 875-125 Tablet) 875 MG-125 MG TABLET 1 TAB PO BID Cellulitis Cephalexin (Keflex) 500 MG CAPSULE 1 CAP PO Q6H CELLULITIS Cetirizine HCl (Zyrtec) 10 MG TABLET 1 TAB PO DAILY NEEDED PRN RHINITIS Cholecalciferol (Vitamin D3) (Vitamin D) 1,000 UNIT TABLET 1 TAB PO DAILY Vitamin D deficiency. . Ergocalciferol (Vitamin D2) (Vitamin D2) 50,000 UNIT CAPSULE 1 CAP PO ONCE A WEEK Vitamin D deficiency. . Ferrous Sulfate 325 MG (65 MG IRON) TABLET 1 TAB PO DAILY SUPPLEMENT ( Reported) Furosemide (Lasix) 20 MG TABLET 1 TAB PO EOD FLUID RETENTION (Reported) Ibuprofen 800 MG TABLET 1 TAB PO TID PAIN.FEVER Naproxen Sodium (Aleve) 220 MG TABLET 2 TAB PO PRN PAIN (Reported) Ondansetron (Zofran Odt) 4 MG TAB.RAPDIS 1 TAB SL TID NAUSEA Triage Note: 32F WITH N/V CHILLS SINCE 1PM TODAY. HX LYMPHEDEMA AND CONCERNED SHE HAS RLE CELLULITIS. TEMP 100.1 AND TACHY 120'S IN TRIAGE. SLIGHTLY DIAPHORETIC. TOOK ALEVE AT 1PM WHEN SYMPTOMS BEGAN. +ABD PAIN. PT BEGAN VOMITING IN TRIAGE, TAKEN TO ROOM FOR LINE/LABS AND MEDICATION Triage Nurses Notes Reviewed? yes Onset: Abrupt Duration: day(s): (1), constant, continues in ED, getting worse Timing: single episode today Injury Environment: home Severity: mild, moderate Severity Numbers: 6 No Modifying Factors: none : No Patient currently breastfeeds: No HPI: 32-year-old female history of morbid obesity, lymphedema, recurrent cellulitis presents for evaluation of fever, nausea, vomiting and a painful area of redness to her right lower extremity. Patient reports she has had cellulitis in this area multiple times in the past. This current episode started around 1 PM this afternoon. She denies any chest pain shortness of breath worsening swelling abdominal pain back pain discharge. The redness is located around her right lower extremity from the ankle to mid arzate. No recent surgery history of DVT. She has had this in the past. In the same location (Daniel Keith) Past History Travel History Traveled to [place] past 21 day No Medical History Any Pertinent Medical History? see below for history Neurological: NONE EENT: sinusitis Cardiovascular: NONE Respiratory: ASTHMA LIKE SYMPTOMS WHEN SICK Gastrointestinal: NONE Hepatic: NONE Renal: NONE Musculoskeletal: CELLULITIS Psychiatric: NONE Endocrine: LYMPHEDEMA Blood Disorders: anemia Cancer(s): NONE SUPERVISOR LOOPING/Reproductive: TUBAL LIGATION History of MRSA: No History of VRE: No History of CDIFF: No Surgical History Surgical History: appendectomy, , TUBAL LIGATION ULNAR SHORTENING Psychosocial History Who do you live with Spouse Services at Home None What is your primary language Kenyan Tobacco Use: Refused to answer Family History Family History, If Any: Relation not specified for: *No pertinent family history Hx Contributory? No (Daniel Keith) Review of Systems Review of Systems Constitutional: Reports: fever, malaise. EENTM: Reports: no symptoms. Respiratory: Reports: no symptoms. Cardiovascular: Reports: no symptoms. GI: Reports: no symptoms. Genitourinary: Reports: no symptoms. Musculoskeletal: Reports: no symptoms. Skin: Reports: see HPI, erythema. Neurological/Psychological: Reports: no symptoms. Hematologic/Endocrine: Reports: no symptoms. Immunologic/Allergic: Reports: no symptoms. All Other Systems: Reviewed and Negative (Daniel Keith) Physical Exam Physical Exam General Appearance: well developed/nourished, no apparent distress, alert, awake , obese Head: atraumatic, normal appearance Eyes: Bilateral: normal appearance, PERRL, EOMI. Ears, Nose, Throat: hearing grossly normal Neck: normal inspection, supple, full range of motion Respiratory: normal breath sounds, chest non-tender, no respiratory distress, quiet respiration Cardiovascular: regular rate/rhythm, normal peripheral pulses Peripheral Pulses: 2+ radial (R), 2+ radial (L), 1+ tibialis posterior (R), 1+ tibialis posterior ( L), 1+ dorsalis pedis (R), 1+ dorsalis pedis (L) Gastrointestinal: soft, non-tender Back: normal inspection, normal range of motion Extremities: normal range of motion, swelling, tenderness, there is bilateral lymphedema present in the lower extremities there is redness and warmth that extemds from the rt ankle to mid arzate. no focal fluctant areas or discharge. n/v supply inatct. no induration Neurologic/Psych: no motor/sensory deficits, awake, alert, oriented x 3, normal gait Skin: intact, normal color, warm/dry Core Measures ACS in differential dx? No CVA/TIA Diagnosis: No Sepsis Present: No Sepsis Focused Exam Completed? No (Daniel Keith) Progress Differential Diagnoses I considered the following diagnoses in my evaluation of the patient: [ Cellulitis, abscess, DVT, sepsis] Plan of Care: Orders Procedure Date/time Status BLOOD CULTURE 04/01 1713 Active LIPASE 04/01 1702 Complete LACTIC ACID 04/01 1702 Complete COMPREHENSIVE METABOLIC PANEL 04/01 1702 Complete CBC WITHOUT DIFFERENTIAL 04/01 1702 Complete Laboratory Tests 04/01/18 1720: Anion Gap 11, Estimated GFR > 60, BUN/Creatinine Ratio 20.0, Glucose 107 H, Lactic Acid 1.9, Calcium 9.2, Total Bilirubin 0.5, AST 21, ALT 28, Alkaline Phosphatase 97, Total Protein 7.2, Albumin 4.2, Globulin 3.0, Albumin/Globulin Ratio 1.4, Lipase 51, CBC w Diff NO MAN DIFF REQ, RBC 4.38, MCV 80.6 L, MCH 27.3, MCHC 33.9, RDW 14.8 H, MPV 7.9, Gran % 91.2 H, Lymphocytes % 5.4 L, Monocytes % 3.3, Eosinophils % 0.1, Basophils % 0, Absolute Granulocytes 13.1 H , Absolute Lymphocytes 0.8 L, Absolute Monocytes 0.5, Absolute Eosinophils 0, Absolute Basophils 0 04/01/18 1702: Urine Test Cancelled Microbiology 04/01 1720 BLOOD: Blood Culture - RECD 04/01 1713 BLOOD: Blood Culture - ORD Patient is here for evaluation of nausea vomiting fever and possible cellulitis of the right lower extremity. Patient has history of bilateral lower extremity lymphedema and recurrent cellulitis in this area. This current episode started today several hours prior to arrival. On exam patient has a low-grade temp and cellulitis that is present in the right lower extremity. Patient was medicated with Zofran IV fluids labs ordered blood cultures ordered. Blood work is positive for a white blood cell count of 14,000 with left shift. Remaining labs unremarkable including a negative lactic acid. Heart rate and temperature are improved after fluids and IV Tylenol. Patient is feeling much better she is tolerating fluids by mouth. Patient was medicated with a dose of IV Unasyn here she will be started on cephalexin 500 every 6 hours 10 days. Consider the possibility of DVT. Ultrasound currently not available. There does not appear to be significant swelling in the right lower extremity compared to the left she has a history of chronic lymphedema. She has no DVT risk factors. Patient was instructed to return in 2448 hrs. for a recheck and possible ultrasound. Discussed return precautions in detail patient agrees the plan Initial ED EKG: none (Daniel Keith) Departure Departure Disposition: HOME OR SELF CARE Condition: Stable Clinical Impression Primary Impression: Cellulitis Qualifiers: Site of cellulitis: extremity Site of cellulitis of extremity: lower extremity Laterality: right Qualified Code: L03.115 - Cellulitis of right lower limb Referrals: Christofer ESCOBAR,Kyra (PCP/Family) Additional Instructions: Take antibiotics as directed course. Tylenol and ibuprofen for pain or fever. Zofran for nausea. Make a follow-up with her primary care doctor within the next few days for recheck. Return to the emergency department was spreading redness worsening swelling worsening pain or any other concerns. Departure Forms: Customer Survey General Discharge Information Prescriptions: Current Visit Scripts Cephalexin (Keflex) 1 CAP PO Q6H #40 CAP Ibuprofen 1 TAB PO TID #30 TAB Ondansetron (Zofran Odt) 1 TAB SL TID #10 TAB (Daniel Keith) PA/BIODIESEL PROCESS CONTROL TECHNICIAN Co-Sign Statement Statement: ED Attending supervision documentation- [] I saw and evaluated the patient. I have also reviewed all the pertinent lab results and diagnostic results. I agree with the findings and the plan of care as documented in the PA's/BIODIESEL PROCESS CONTROL TECHNICIAN's documentation. [X] I have reviewed the ED Record and agree with the PA's/BIODIESEL PROCESS CONTROL TECHNICIAN's documentation. [] Additions or exceptions (if any) to the PAs/BIODIESEL PROCESS CONTROL TECHNICIAN's note and plan are summarized below: [] (Swetha ESCOBAR,Mac Plascencia) Critical Care Note Critical Care Note Critical Care Time: non-applicable (Porter CASILLAS,Daniel)
[2018-04-01] MEDS ORDERED: ZOFRAN ODT4 M1 SL (19:01)
[2018-04-01] MEDS ORDERED: IBUPROFEN800 M1 PO (19:01)
[2018-04-01] MEDS ORDERED: KEFLEX500 M1 PO (19:01)
== END 2018-04-01 19:08 ==
LOC: ERH 16:51
PROVIDERS: Physician Assistant Medical
DX: L03.115 Cellulitis of right lower limb (principal); R11.2 Nausea with vomiting, unspecified; R50.9 Fever, unspecified
CPT/HCPCS: 81025; 87040; 96374; J3101

== ENCOUNTER 2018-05-15 18:24 | Inpatient (IN) | payer OTHER ==
[~2018-05-15] VITALS: Ht 180.3 cm; Wt 190.5 kg
[~2018-05-15 18:24] MED LIST changes: +IBUPROFEN800 M1 PO; +ZOFRAN ODT4 M1 SL
--- NOTE | 2018-05-15 19:37 | ULTRASOUND REPORT ---
EXAMINATION: US TRIPLEX OF LOWER EXTREMITIES, BILATERAL CLINICAL INFORMATION: Bilateral leg swelling COMPARISON: Left lower extremity DVT study 01/21/2017 and bilateral lower extremity DVT study 12/30/2016 TECHNIQUE: Color-flow triplex imaging with spectral analysis and compression Doppler were performed on the lower extremities. Examination limited secondary to patient body habitus. FINDINGS: Respiratory variation, normal compression and augmented flow are noted throughout the lower extremities. The visualized common femoral vein, superficial femoral vein, profunda femoral vein, popliteal vein and midcalf peroneal and posterior tibial venous segments show no evidence of deep venous thrombosis. There is no Simmons's cyst. Again demonstrated is an enlarged left inguinal lymph node which measures 4 cm in maximum dimension (previously 4.8 cm). IMPRESSION: 1. No evidence of deep venous thrombosis involving the bilateral lower extremities. 2. Stable enlarged left inguinal lymph node.
[2018-05-15 20:03] LABS: ABSOLUTE BASOPHIL COUNT 0 /CUMM (0.0-0.2); ABSOLUTE EOSINOPHIL COUNT 0 /CUMM (0.0-0.7); ABSOLUTE GRANULOCYTE CT 9.7 /CUMM (1.4-6.5); ABSOLUTE LYMPH COUNT 0.7 /CUMM (1.2-3.4); ABSOLUTE MONOCYTE COUNT 0.2 /CUMM (0.10-0.60); BASOPHIL % 0 % (0.0-2.0); EOSINOPHIL % 0.1 % (0-5); GRANULOCYTE % 91.5 % (42.2-75.2); HEMATOCRIT 33.7 % (37-47); MEAN CORPUSCULAR HGB 27.2 PG (27.0-31.0); MEAN CORPUSCULAR HGB CONC 33.7 G/DL (33.0-37.0); MEAN CORPUSCULAR VOLUME 80.7 FL (81.0-99.0); PLATELET COUNT 229 /CUMM (130-400); RBC DISTRIBUTION WIDTH 15.6 % (11.5-14.5); RED BLOOD CELL CT 4.18 /CUMM (4.20-5.40); WHITE BLOOD CELL COUNT 10.6 /CUMM (4.8-10.8)
--- NOTE | 2018-05-15 21:52 | ED GENERAL ADULT ---
History of Present Illness General Chief Complaint: Lower Extremity Problems Stated Complaint: BILATERIAL REDNESS, SWELLING TO LOWER EXTREMITIES Source: patient Exam Limitations: no limitations Vital Signs & Intake/Output Vital Signs & Intake/Output Vital Signs Date Time Temp Pulse Resp B/P B/P Pulse O2 O2 Flow FiO2 Mean Ox Delivery Rate 05/15 2344 Room Air 05/15 2338 98.3 93 20 125/79 97 Room Air 05/15 2304 Room Air 05/15 2303 98.4 88 16 116/58 97 Room Air 05/15 2146 98.9 90 18 137/54 97 Room Air 05/15 2043 102.8 05/15 1846 102.8 129 18 137/71 96 Room Air ED Intake and Output 05/16 0000 05/15 1200 Intake Total 1000 Output Total Balance 1000 Intake, IV 1000 Patient 420 lb Weight Weight Reported by Patient Measurement Method Allergies Coded Allergies: No Known Allergies (02/18/17) Triage Note: PT TO THE ER FOR CELLULITIS BLE. PT STATES THAT IT STARTED WITH THE LEFT EARLY MONDAY MORNING THEN IT SPREAD TO THE OTHER LEG. PT STATES THAT SHE HAS HX OF THE SAME. PT WAS SEEN YESTERDAY PCP AND WAS SENT HOME WITH ANTIBIOTICS BUT PER PT IT IS GETTING WORSE. PT LEGS ARE READ AND HOT. PT STATES THAT SHE WAS TOLD TO TAKE TYLENOL FOR THE PAIN BUT EVERYTIME SHE DOES SHE VOMITS BROWN AND BLACK. [T STATES THAT SHE HAS NOT HAD A BM IN 2 DAYS. Triage Nurses Notes Reviewed? yes Onset: Gradual Duration: day(s): Timing: constant : No Patient currently breastfeeds: No HPI: 33-year-old female with a history of asthma, anemia, obesity, and recurrent cellulitis presenting with cellulitis to her left lower extremity since yesterday. Reports that she saw her PMD and was placed on Keflex. Has been taking the medication as prescribed, but with worsening symptoms. She is now febrile with a tmax 102F. She has been nauseous and vomiting. She notes that when she vomits her emesis is dark brown. She is not on any anticoagulation. Denies abdominal pain. She also feels like her cellulitis is beginning on the right leg as well now, although there is no obvious erythema on her right lower extremity that is noted on arrival. (Rafael CASILLAS,Liat) Reconcile Medications Cephalexin (Keflex) 500 MG CAPSULE 1 CAP PO Q6H CELLULITIS Cetirizine HCl (Zyrtec) 10 MG TABLET 1 TAB PO DAILY NEEDED PRN RHINITIS Cholecalciferol (Vitamin D3) (Vitamin D) 1,000 UNIT TABLET 1 TAB PO DAILY Vitamin D deficiency. . Ferrous Sulfate 325 MG (65 MG IRON) TABLET 1 TAB PO DAILY SUPPLEMENT ( Reported) (Michelle ESCOBAR,Kojo Haile) Past History Travel History Traveled to [place] past 21 day No Medical History Any Pertinent Medical History? 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 No (Liat Birmingham) Review of Systems Review of Systems Constitutional: Reports: no symptoms. EENTM: Reports: no symptoms. Respiratory: Reports: no symptoms. Cardiovascular: Reports: no symptoms. GI: Reports: no symptoms. Genitourinary: Reports: no symptoms. Musculoskeletal: Reports: no symptoms. Skin: Reports: see HPI. Neurological/Psychological: Reports: no symptoms. Hematologic/Endocrine: Reports: no symptoms. Immunologic/Allergic: Reports: no symptoms. All Other Systems: Reviewed and Negative (Liat [place]) Physical Exam Physical Exam General Appearance: well developed/nourished, no apparent distress, alert, awake Comments: Gen.: Well-nourished, well-developed, no acute distress. Head: Normocephalic, atraumatic. Eyes: Normal inspection bilaterally Ears: Normal inspection bilaterally Nose: Normal inspection Neck: Normal inspection Lungs: clear to auscultation bilaterally, normnal breath sounds Heart: regular rate and rhythm Abdomen: soft and non-tender Extremities: Erythema, edema, increased warmth to the right lower extremity, no areas of fluctuance to suggest abscess. The right lower extremity is neurovascularly intact. Chronic venous stasis changes to the distal left lower extremity, no obvious erythema. The left lower extremity is neurovascularly intact. Neurologic: alert and oriented x3, steady gait Skin: warm and dry Psychiatric: Normal mood and affect, no apparent delusions or hallucinations, behavior appropriate Core Measures ACS in differential dx? No CVA/TIA Diagnosis: No Sepsis Present: No Sepsis Focused Exam Completed? No (Rafael CASILLAS,Liat) Progress Differential Diagnoses I considered the following diagnoses in my evaluation of the patient: [ Cellulitis versus abscess versus sepsis versus DVT] Plan of Care: Orders Procedure Date/time Status Regular Diet 05/16 B Active CBC WITHOUT DIFFERENTIAL 05/16 600 Active BASIC ELECTROLYTES PLUS BUN&CR 05/16 600 Active MISSING MEDICATION FORM 05/16 0104 Active Weight 05/15 2341 Complete Vital Signs 05/15 2341 Active Teach/Educate 05/15 2341 Active Pain Treatment and Response 05/15 2341 Active Nutritional Intake, Monitor 05/15 2341 Active Isolation 05/15 2341 Active Intake & Output 05/15 2341 Active Patient Care Conference 05/15 2341 Active Activity/Ambulation 05/15 2341 Active Saline Lock 05/15 2240 Active Pathway - chart 05/15 224 Active House Staff 05/15 2240 Active EKG 05/15 224 Active Code Status 05/15 224 Active Saline Lock 05/15 2201 Active Misc Message 05/15 2201 Active ED Holding Orders 05/15 2201 Active Admit to inpatient 05/15 220 Active Vital Signs 05/15 220 Complete Code Status 05/15 2201 Complete Patient Data 05/15 2154 Active Intake & Output 05/15 2147 Active LACTIC ACID 05/15 1950 Complete BLOOD CULTURE 05/15 1949 Active COMPREHENSIVE METABOLIC PANEL 05/15 1841 Complete CBC WITHOUT DIFFERENTIAL 05/15 1841 Complete B-TYPE NATRIURETIC PEP (BNP) 05/15 1841 Complete Lab Add-on Test 05/15 UNK Active VTE Mechanical Prophylaxis 05/15 UNK Active Vital Signs 05/15 UNK Active Activity/Ambulation 05/15 UNK Active Current Medications Sig/Juan Carlos Start time Last Medication Dose Stop Time Status Admin Cholecalciferol 1,000 IU DAILY 05/16 900 AC (Vitamin D) Enoxaparin Sodium 40 MG DAILY 05/16 900 AC (Lovenox) Ferrous Sulfate 325 MG DAILY 05/16 900 AC (Feosol) Ampicillin Sodium/ 3,000 MG Q6 05/16 0027 AC 05/16 Sulbactam Sodium 0133 (Unasyn) Sodium Chloride 100 ML (Normal Saline 0.9%) Acetaminophen 650 MG Q6P PRN 05/15 224 AC (Tylenol) Acetaminophen 1,000 MG Q6P PRN 05/15 224 AC (Ofirmev) Dextrose/Sodium 1,000 ML Q13H 05/15 2245 AC 05/15 Chloride 2359 (D5W-1/2 Normal Saline 1000ML) Acetaminophen 650 MG ONCE ONE 05/15 1900 CAN (Tylenol) 05/15 1901 Laboratory Tests 05/15/181949: Anion Gap 11, Estimated GFR > 60, BUN/Creatinine Ratio 17.1, Glucose 113 H, Lactic Acid 1.3, Calcium 8.6, Total Bilirubin 0.7, AST 19, ALT 23, Alkaline Phosphatase 82, Whu-B-Wmrnewymrmi Pept 316 H, Total Protein 6.6, Albumin 3.4 L , Globulin 3.2, Albumin/Globulin Ratio 1.1, CBC w Diff MAN DIFF ORDERED, RBC 4.18 L, MCV 80.7 L, MCH 27.2, MCHC 33.7, RDW 15.6 H, MPV 8.0, Gran % 91.5 H, Lymphocytes % 6.4 L, Monocytes % 2.0, Eosinophils % 0.1, Basophils % 0, Absolute Granulocytes 9.7 H, Segmented Neutrophils 75, Band Neutrophils 14 H, Absolute Lymphocytes 0.7 L, Lymphocytes 8 L, Monocytes 3, Absolute Monocytes 0.2, Absolute Eosinophils 0, Absolute Basophils 0, Platelet Estimate ADEQUATE, Normocytic RBCs VERIFIED, Normochromic RBCs VERIFIED Microbiology 05/15 2020 BLOOD: Blood Culture - RECD 05/15 1950 BLOOD: Blood Culture - RECD Labs show normal WBC, but on her differential there is a left shift with bandemia. Additionally she has shown systemic signs with fever and vomiting. Will admit to general medicine for IV antibiotics and further monitoring. Initial ED EKG: none (Rafael CASILLAS,Liat) Departure Departure Disposition: STILL A PATIENT Condition: Stable Clinical Impression Primary Impression: Cellulitis Referrals: Kyra Beaulieu MD (PCP/Family) Departure Forms: Customer Survey General Discharge Information Admission Note Spoke With: Rory Fernández MD Documentation of Exam: Documentation of any treatments & extenuating circumstances including Concerns Regarding Discharge (functional status, medication knowledge or non-compliance, living conditions, etc.) that warrant an admission rather than observation: [IV antibiotics, serial labs, hemodynamic monitoring, infectious disease consult] (Liat [place]) PA/BUILDING ANALYST/SUPERVISOR Co-Sign Statement Statement: ED Attending supervision documentation- [x] I saw and evaluated the patient. I have also reviewed all the pertinent lab results and diagnostic results. I agree with the findings and the plan of care as documented in the PA's/BUILDING ANALYST/SUPERVISOR's documentation. [] I have reviewed the ED Record and agree with the PA's/BUILDING ANALYST/SUPERVISOR's documentation. [] Additions or exceptions (if any) to the PAs/BUILDING ANALYST/SUPERVISOR's note and plan are summarized below: [] (Michelle ESCOBAR,Kojo Haile) Critical Care Note Critical Care Note Critical Care Time: non-applicable (Liat [place])
--- NOTE | 2018-05-15 22:23 | History & Physical ---
Lyudmila Montague 05/15/18 2222: General Information and HPI MD Statement: I have seen and personally examined CRISPIN CERDA and documented this H&P. The patient is a 33 year old F who presented with a patient stated chief complaint of left lower extremity swelling. History of Present Illness: Patient is a 33 year old female with past medical history of asthma, lymphedema and recurrent cellulitis who presented to the ED with cheif complaint of worsening lower extremity swelling and edema. Patient was in her usual state of health until this morning when she noticed her left lower extremity was increasing in pain, swelling and redness. She had noticed that she felt associated fevers and chills with nausea and vomiting. Patient states she had vomited almost 7 times between yesterday and today described to be dark colored. She had seen her PCP yesterday afternoon, Dr. Booth of [facility] who had prescribed the patient Keflex for 10 days. She states she took one days worth of the medication. Dr. Booth had marked the area of erythema which she noticed spread beyond the marking today. Patient denies any recent trauma to her lower extremities, bug bites or recent shaving or cuts. No sick contact at home. No recent travel. No pertinent family history. Patient denies smoking or drinking alcohol or illicit drug use. Last dischrage February 2017 for right lower extremity cellulitis and chornic lymphadema where she was seen by Dr. Holt. Patient has not followed up with a physician for the lower extremity lymphadema but does use compression socks at night. Allergies/Medications Allergies: Coded Allergies: No Known Allergies (02/18/17) Home Med list Cephalexin (Keflex) 500 MG CAPSULE 1 CAP PO Q6H CELLULITIS Cetirizine HCl (Zyrtec) 10 MG TABLET 1 TAB PO DAILY NEEDED PRN RHINITIS Cholecalciferol (Vitamin D3) (Vitamin D) 1,000 UNIT TABLET 1 TAB PO DAILY Vitamin D deficiency. . Ferrous Sulfate 325 MG (65 MG IRON) TABLET 1 TAB PO DAILY SUPPLEMENT ( Reported) Past History Travel History Traveled to [place] past 21 day No Medical History Neurological: NONE EENT: sinusitis Cardiovascular: NONE Respiratory: ASTHMA LIKE SYMPTOMS WHEN SICK Gastrointestinal: NONE Hepatic: NONE Renal: NONE Musculoskeletal: CELLULITIS Psychiatric: NONE Endocrine: LYMPHEDEMA Blood Disorders: anemia Cancer(s): NONE SUPERVISOR COMPOSING ROOM/Reproductive: TUBAL LIGATION History of MRSA: No History of VRE: No History of CDIFF: No Surgical History Surgical History: appendectomy, , TUBAL LIGATION ULNAR SHORTENING Past Family/Social History Family History Relations & Conditions if any Relation not specified for: *No pertinent family history Psychosocial History Services at Home: None Living Will? yes Functional Ability ADLs Independent: dressing, eating, toileting, bathing. Ambulation: independent IADLs Independent: shopping, housework, finances, food prep, telephone, transportation , medication admin. Review of Systems Review of Systems Constitutional: Denies: see HPI. Exam & Diagnostic Data Last 24 Hrs of Vital Signs/I&O Vital Signs Date Time Temp Pulse Resp B/P B/P Pulse O2 O2 Flow FiO2 Mean Ox Delivery Rate 05/15 2043 102.8 05/15 1846 102.8 129 18 137/71 96 Room Air Physical Exam General Appearance Alert, Oriented X3, Cooperative, Mild Distress Skin right lower extremity erythema marked with pen extending beyond previously marked border, no drainage/pus, pitting edema; erythema located on anterior aspect of left leg from ankle to the knee Skin Temp/Moisture Exam: Warm/Dry Sepsis Skin Exam (color): Normal for Ethnicity HEENT Mucous Membr. moist/pink Neck Supple Cardiovascular Normal S1, Normal S2 Lungs Clear to Auscultation, Normal Air Movement Abdomen Normal Bowel Sounds, Soft, No Tenderness Neurological Normal Gait, Normal Speech, Strength at 5/5 X4 Ext, Sensation Intact Extremities +2 edema in bialteral lower extremities up to the ankle erythema extending from ankle to knee in left lower extremity; tender to touch; warm; no drainage/pus Vascular Normal Pulses, Pulses Symmetrical Last 24 Hrs of Labs/Davon: Laboratory Tests 05/15/18 1950: Anion Gap 11, Estimated GFR > 60, BUN/Creatinine Ratio 17.1, Glucose 113 H, Calcium 8.6, Total Bilirubin 0.7, AST 19, ALT 23, Alkaline Phosphatase 82, Pro-B -Natriuretic Pept 316 H, Total Protein 6.6, Albumin 3.4 L, Globulin 3.2, Albumin/Globulin Ratio 1.1, CBC w Diff MAN DIFF ORDERED, RBC 4.18 L, MCV 80.7 L, MCH 27.2, MCHC 33.7, RDW 15.6 H, MPV 8.0, Gran % 91.5 H, Lymphocytes % 6.4 L, Monocytes % 2.0, Eosinophils % 0.1, Basophils % 0, Absolute Granulocytes 9.7 H, Segmented Neutrophils 75, Band Neutrophils 14 H, Absolute Lymphocytes 0.7 L , Lymphocytes 8 L, Monocytes 3, Absolute Monocytes 0.2, Absolute Eosinophils 0, Absolute Basophils 0, Platelet Estimate ADEQUATE, Normocytic RBCs VERIFIED, Normochromic RBCs VERIFIED Microbiology 05/15 2020 BLOOD: Blood Culture - RECD 05/15 1950 BLOOD: Blood Culture - RECD Assessment/Plan Assessment: 33 year old female with PMH of iron deficiency, recurrent cellulitis, chronic lower extremity edema presented to ED for worsening left lower extremity swelling and erythema. Associated fever, nausea and vomiting at home. Saw PCP who marked area and prescribed keflex for 10 days. Patient took one day worth of keflex and was given vancomycin X 1 in the ED. EMERGENCY DEPARTMENT: IV tylenol, Zofran, NS, VANCOMYCIN X 1 Vitals: 102.8, 129, 18, 137/71, 96% RA Labs: 10.6 WBC, Hgb: 11.4, Hct 33.7, Plt: 229 Chemistry: 132, 3.7, 98, 23, BUN 12, cr 0.7 Pro BNP 316 Glucose 113 Lower Extremity Doppler: no evidence of DVT; stable enlarged left inguinal lymph node PROBLEM LIST: 1. Left Lower Extremity Cellulitis 2. Chronic Lymphedema/venous stasis 3. Iron Deficiency Anemia PLAN: * Patient was prescribed keflex by PCP which she took 1 days worth of; given 1 X vancomycin in ED - Will start Unasyn since patient has responded to unasyn in the past * IV fluids at D5 1/2 @ 75 for now; Regular diet if patient can tolerate * Follow up EKG + Lactic Acid * Follow up Blood cultures * Monitor for continuous fevers, leukocytosis * Continue home medications: Iron Sulfate + Vitamin D + Zyrtec Code Status: Full Code DVT PPx: Lovenox Diet: Regular Pain pathway ordered As Ranked By This Provider Problem List: 1. Cellulitis of leg, left 2. Lymphedema Core Measures/Misc (05/07) Acute Coronary Syndrome ACS Diagnosis: No Congestive Heart Failure Congestive Heart Failure Diagnosis No Cerebrovascular Accident CVA/TIA Diagnosis: No VTE (View Protocol) VTE Risk Factors Obesity No Mechanical VTE Prophylaxis d/t N/A MechProphylax Ordered No VTE Pharm Prophylaxis d/t NA PharmProphylax ordered Sepsis (View protocol) Sepsis Present: No If YES complete Sepsis Event Note If YES complete Sepsis Event Note Johnathon Wong MD 05/16/18 0004: Core Measures/Misc (05/07) Sepsis (View protocol) If YES complete Sepsis Event Note If YES complete Sepsis Event Note Resident Review Statement Resident Statement: examined this patient, discussed with internal medicine doctor, agreed with internal medicine doctor, reviewed EMR data (avail), amended to note Other Findings: Patient is a 33-year-old morbidly obese female with past medical history of asthma, iron deficiency anemia, vitamin D deficiency, recurrent cellulitis and lower extremity lymphedema with previous admission in February 2017 treated for right lower extremity cellulitis with beta strep group a bacteremia now presenting with chief complaint of left lower extremity cellulitis. Patient reports that one day prior to admission she was seen by her primary care physician and was diagnosed with left lower extremity cellulitis and was prescribed Keflex. Her primary care physician marked the area of erythema which patient states that she has noticed has crossed over the line. Patient also reports worsening symptoms including lower extremity pain and swelling, fever, chills, multiple episodes of nausea and vomiting. Approximately 7 episodes since one day prior to admission. Reports dark brown nonbloody emesis. Patient states she is not able to keep anything down including grapes which she had earlier today. Patient reports no recent history of trauma to the area. Denies any bug bites or 2 flights. Does not shave her legs. Patient has a history of recurrent cellulitis reports that it was most recently in the right lower extremity. In 2016 patient was admitted for right lower extremity cellulitis at which point her blood cultures grew beta strep a and patient was placed on IV Unasyn followed by Augmentin. Patient was also seen by vascular surgery room she reports she has not followed up with for her lower extremity lymphedema however is using compression socks at night. Past medical history: As above Past surgical history: Tubal ligation, appendectomy, Social history: Denies tobacco use, alcohol or any other illicit drug use. Denies any sick contacts or recent travel. Does not have any pets. Medications: Zyrtec, vitamin D, iron On admission: Vitals: MAXIMUM TEMPERATURE 102.8, heart rate 129, respiration rate 18, blood pressure 137/71, saturating and 96% on room air Physical exam as above, significant for left lower extremity and right lower extremity trace edema, left lower extremity erythema from knee to ankle, tender to palpation, warm to touch, no area of trauma or ulceration visible Labs: Significant for WBC of 10.6 with 91.5% granulocytes and 14 bands Patient in the ED he received IV normal saline 1 L bolus, IV Tylenol 1 g, Zofran , vancomycin 1.5 g IV 1 Patient is a 33-year-old morbidly obese female with past medical history significant for recurrent cellulitis and lymphedema presenting with left lower extremity cellulitis. Problems: Sepsis 2/2 LLE cellulitis Nausea and Vomitting Hyponatremia Chronic Lymphadema Plan: Admit to [facility] Lactic acid added to labs - pending Continue IV fluid hydration with D5 1/2NS EKG Continue to monitor vitals Follow up blood cultures Start IV Unasyn for coverage of Strep Continue home medications Keep legs elevated Compression stockings if able to tolerate Pain control: Tylenol Diet: Regular diet Code: Full code Pradeep ESCOBAR,Rory 05/16/18 0240: Core Measures/Misc (05/07) Sepsis (View protocol) If YES complete Sepsis Event Note If YES complete Sepsis Event Note Attending MD Review Statement Attending Statement Attending MD Statement: examined this patient, discuss w/resident/PA/TRUCK CATERER, agreed w/resident/PA/TRUCK CATERER Attending Assessment/Plan: Patient is seen and examined independently by me. Care plan discussed with medical technologist and/or resident. I agree with the physical exam findings and plan of care as outlined above with the following changes and additions. 33 yo F with history of bilateral LE lymphedema, recurrent LE cellulitis and treated with Unasyn in the past, asthma, presents with left leg redness, warmth, swelling and pain since yesterday. She has fever at home and saw PCP yesterday, noted to have T 102. Started Keflex for cellulitis. Today she notices the redness extended beyond the border marking by PCP. She also has poor appetite with nausea and vomited 7 times with no blood in vomitus. In the ED, T max 102.8. WBC 10.6 with left shift and 14 bands. Lactic acid 1.3. She got vanco 1.5 g IV in the ED. Doppler of bilateral LE shows no acute DVT. Patient is admitted to inpatient to [facility] for left LE cellulitis. Check blood cultures. Start Unasyn. Signed: Rory Fernández MD FACP
[2018-05-15 23:38] VITALS: BP 125/79
[2018-05-16 06:39] VITALS: BP 132/56
--- NOTE | 2018-05-16 07:21 | PN- Housestaff ---
Vijay Adams 05/16/18 0721: Subjective Follow-up For: Left Lower Extremity Cellulitis Subjective: Patient seen and examined at bedside. She reports that her fever, chills, and vomiting stopped, but still has some nausea. She denies any pain associated with left leg when it is propped up in bed. She does report tenderness to deep touch and pain when weight bearing or ambulating. Review of Systems Constitutional: Denies: see HPI. Objective Last 24 Hrs of Vital Signs/I&O Vital Signs Date Time Temp Pulse Resp B/P B/P Pulse O2 O2 Flow FiO2 Mean Ox Delivery Rate 05/16 1416 98.6 87 18 107/55 97 Room Air 05/16 0639 98.0 96 18 132/56 98 Room Air 05/15 2344 Room Air 05/15 2338 98.3 93 20 125/79 97 Room Air 05/15 2304 Room Air 05/15 2303 98.4 88 16 116/58 97 Room Air 05/15 2146 98.9 90 18 137/54 97 Room Air Intake & Output 05/16 1600 05/16 0800 05/16 0000 Intake Total 320 997 4815 Output Total 400 Balance 726 930 3516 Intake, IV 1000 Intake, Oral 800 480 Output, Urine 400 Patient 420 lb Weight Weight Reported by Patient Measurement Method Physical Exam General Appearance: Alert, Oriented X3, Cooperative, No Acute Distress Skin: LLE erythematous, warm Skin Temp/Moisture Exam: Warm/Dry Sepsis Skin Exam (color): Normal for Ethnicity HEENT: Atraumatic, Mucous Membr. moist/pink Neck: Supple Cardiovascular: Regular Rate, Normal S1, Normal S2 Lungs: Clear to Auscultation, Normal Air Movement Abdomen: Normal Bowel Sounds, Soft, No Tenderness Neurological: Normal Speech, Sensation Intact, Decreased sensation around erythemaotous area Extremities: LLE erythema and tenderness Vascular: Normal Pulses Assessment/Plan Assessment: 33 year old female with past medical history of asthma, lymphedema and recurrent cellulitis who presented to the ED with chief complaint of worsening lower extremity swelling and edema accompanied with non-bloody vomiting, fever and chills. Her PCP started her on Keflex, but the regimen has been changed to unasyn now because it worked in the past. Problem list: #LLE Cellulitis - Continue Unasyn - F/U blood cx - F/U lactic acid - Monitor for fevers - White count dropping (in normal range) #Nausea - Zofran once daily prn #Chronic Venous Stasis / Lymphedema - hold compression stockings for LLE for now Problem List: 1. Cellulitis of leg, left Pain Ratin Pain Location: n/a Pain Goal: Remain pain free Pain Plan: Per pathway Tomorrow's Labs & Rationales: None Scott Vogel MD 05/16/18 2331: Attending MD Review Statement Attending Statement Attending MD Statement: examined this patient, discuss w/resident/PA/ASSISTANT FACILITY MANAGER, agreed w/resident/PA/ASSISTANT FACILITY MANAGER, reviewed EMR data (avail), discussed with nursing, discussed with case mgmt, reviewed images, amended to note Attending Assessment/Plan: The patient was seen and discussed with house staff. Significant improvement in cellulitis on Unasyn. Will continue IV Unasyn at present. Will convert to po Augmentin when further improved. US negative for DVT.
[2018-05-16 08:05] LABS: ABSOLUTE BASOPHIL COUNT 0 /CUMM (0.0-0.2); ABSOLUTE EOSINOPHIL COUNT 0 /CUMM (0.0-0.7); ABSOLUTE GRANULOCYTE CT 7.1 /CUMM (1.4-6.5); ABSOLUTE LYMPH COUNT 1.2 /CUMM (1.2-3.4); ABSOLUTE MONOCYTE COUNT 0.3 /CUMM (0.10-0.60); BASOPHIL % 0.3 % (0.0-2.0); EOSINOPHIL % 0.1 % (0-5); GRANULOCYTE % 83.2 % (42.2-75.2); HEMATOCRIT 30.1 % (37-47); MEAN CORPUSCULAR HGB 27.4 PG (27.0-31.0); MEAN CORPUSCULAR HGB CONC 33.8 G/DL (33.0-37.0); MEAN CORPUSCULAR VOLUME 81.2 FL (81.0-99.0); MEAN PLATELET VOLUME 8.3 FL (7.4-10.4); PLATELET COUNT 203 /CUMM (130-400); RBC DISTRIBUTION WIDTH 15.7 % (11.5-14.5); RED BLOOD CELL CT 3.71 /CUMM (4.20-5.40); WHITE BLOOD CELL COUNT 8.6 /CUMM (4.8-10.8)
[2018-05-16 14:16] VITALS: BP 107/55
[2018-05-16 22:36] VITALS: BP 93/49
[2018-05-17 06:49] VITALS: BP 94/50
--- NOTE | 2018-05-17 08:32 | PN- Housestaff ---
See Addendum Subjective Follow-up For: Left Lower Extremity Cellulitis Subjective: Patient seen and examined at bedside. She complained of feeling feverish last night. She is currently afebrile. She denies any nausea, diaphoresis, palpitations or any complaints. Her cellulitis has progressed to the calf region. There are multiple indurated spots. Review of Systems Constitutional: Denies: see HPI. Objective Last 24 Hrs of Vital Signs/I&O Vital Signs Date Time Temp Pulse Resp B/P B/P Pulse O2 O2 Flow FiO2 Mean Ox Delivery Rate 05/17 0649 97.5 87 18 94/50 100 05/16 2236 98.3 94 18 93/49 100 Room Air 05/16 1416 98.6 87 18 107/55 97 Room Air Intake & Output 05/17 1600 05/17 0800 05/17 0000 Intake Total 320 390 Output Total Balance 320 390 Intake, IV 200 150 Intake, Oral 120 240 Physical Exam General Appearance: Alert, Oriented X3, Cooperative, No Acute Distress Skin: MAGDA erythematous area larger, warm, indurated Skin Temp/Moisture Exam: Warm/Dry Sepsis Skin Exam (color): Normal for Ethnicity HEENT: Atraumatic, Mucous Membr. moist/pink Neck: Supple Cardiovascular: Normal S1, Normal S2 Lungs: Clear to Auscultation, Normal Air Movement Abdomen: Normal Bowel Sounds, Soft, No Tenderness Neurological: Normal Speech, Sensation Intact Extremities: LLE tenderness around indurated area Vascular: Normal Pulses Current Medications: Current Medications Sig/Juan Carlos Start time Last Medication Dose Route Stop Time Status Admin Acetaminophen 650 MG Q6P PRN 05/15 2245 AC 05/16 PO 1917 Acetaminophen 1,000 MG Q6P PRN 05/15 2245 AC IV Ampicillin Sodium/ 3,000 MG Q6 05/16 0027 AC 05/17 Sulbactam Sodium IV 1136 Sodium Chloride 100 ML Cholecalciferol 1,000 IU DAILY 05/16 900 AC 05/17 PO 51 Enoxaparin Sodium 40 MG DAILY 05/16 900 AC 05/17 SC 0952 Ferrous Sulfate 325 MG DAILY 05/16 900 AC 05/17 PO 51 Furosemide 20 MG ONCE ONE 05/17 1030 DC 05/17 IV 05/17 1031 1237 Glycerin/Mineral Oil 1 MELANI TIDPRN PRN 05/17 1045 AC 05/17 TOP 1237 Non-Formulary 0 SEE ADMIN CRITERIA 05/17 1045 CAN Medication ANY Last 24 Hrs of Lab/Davon Results Last 24 Hrs of Labs/Mics: Laboratory Tests 05/17/18 0739: CBC w Diff NO MAN DIFF REQ, RBC 3.63 L, MCV 81.8, MCH 27.7, MCHC 33.9, RDW 15.6 H, MPV 8.1, Gran % 68.4, Lymphocytes % 22.6, Monocytes % 8.2, Eosinophils % 0.5 , Basophils % 0.3, Absolute Granulocytes 4.0, Absolute Lymphocytes 1.3, Absolute Monocytes 0.5, Absolute Eosinophils 0, Absolute Basophils 0 Assessment/Plan Assessment: 33 year old female with past medical history of asthma, lymphedema and recurrent cellulitis who presented to the ED with cheif complaint of worsening lower extremity swelling and edema. Considering the cellulitis is progressively getting worse, along with the fact she also felt feverish last night, we may wish to increase antibiotic regimen. At the same time we should consider wound care to help relieve some of the swelling this is a chronic underlying problem. #Lower left extremity cellulitis #Chronic venous stasis/lymphedema -Wound care consult for patient's lymphedema -Elevate left lower extremity -Topical Lubriderm to infected area to prevent dryness, abrasion, pruritus -Continue antibiotic regimen for now -Monitor for fevers -Monitor white count -Zofran for nausea as needed DVT prophylaxis Regular diet Full code Problem List: 1. Cellulitis of leg, left Pain Ratin Pain Location: N/A Pain Goal: Remain pain free Pain Plan: Per pathway Tomorrow's Labs & Rationales: CBC
[2018-05-17 09:12] LABS: ABSOLUTE BASOPHIL COUNT 0 /CUMM (0.0-0.2); ABSOLUTE EOSINOPHIL COUNT 0 /CUMM (0.0-0.7); ABSOLUTE LYMPH COUNT 1.3 /CUMM (1.2-3.4); ABSOLUTE MONOCYTE COUNT 0.5 /CUMM (0.10-0.60); BASOPHIL % 0.3 % (0.0-2.0); EOSINOPHIL % 0.5 % (0-5); GRANULOCYTE % 68.4 % (42.2-75.2); HEMATOCRIT 29.7 % (37-47); MEAN CORPUSCULAR HGB 27.7 PG (27.0-31.0); MEAN CORPUSCULAR HGB CONC 33.9 G/DL (33.0-37.0); MEAN CORPUSCULAR VOLUME 81.8 FL (81.0-99.0); MEAN PLATELET VOLUME 8.1 FL (7.4-10.4); PLATELET COUNT 214 /CUMM (130-400); RBC DISTRIBUTION WIDTH 15.6 % (11.5-14.5); RED BLOOD CELL CT 3.63 /CUMM (4.20-5.40); WHITE BLOOD CELL COUNT 5.8 /CUMM (4.8-10.8)
[2018-05-17 14:04] VITALS: BP 102/60
--- NOTE | 2018-05-17 15:43 | Cons- Wound Care ---
General Information and HPI Consulting Request Date of Consult: 05/17/18 Requested By: Scott Vogel MD Reason for Consult: Bilateral lymphedema left lower extremity cellulitis History of Present Illness: Patient is a 33-year-old with chronic lymphedema admitted with recurrent left lower extremity cellulitis running failed outpatient Keflex. He said chronic lymphedema for which she uses nocturnal compression which is at [id number] her stockings. He presented with fever and erythema of her right leg. Allergies/Medications Allergies: Coded Allergies: No Known Allergies (02/18/17) Home Med List: Cephalexin (Keflex) 500 MG CAPSULE 1 CAP PO Q6H CELLULITIS Cetirizine HCl (Zyrtec) 10 MG TABLET 1 TAB PO DAILY NEEDED PRN RHINITIS Cholecalciferol (Vitamin D3) (Vitamin D) 1,000 UNIT TABLET 1 TAB PO DAILY Vitamin D deficiency. . 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 Home Services at Home: None Smoking Status: Never Smoked Living Will? yes Functional Ability ADLs Independent: dressing, eating, toileting, bathing. Ambulation: independent IADLs Independent: shopping, housework, finances, food prep, telephone, transportation , medication admin. Exam & Diagnostic Data Vital Signs and I&O Vital Signs Result Date Time Pulse Ox 99 05/17 1404 B/P 102/60 05/17 1404 Temp 98.1 05/17 1404 Pulse 87 05/17 1404 Resp 18 05/17 1404 O2 Delivery Room Air 05/16 2236 Intake & Output 05/17 0000 05/16 1600 05/16 0800 Intake Total 390 800 480 Output Total 400 Balance 390 400 480 Intake, IV 150 Intake, Oral 240 800 480 Output, Urine 400 Physical Exam: Exam of the left leg shows there to be extensive cellulitis and erythema there are no open wounds there is evidence of lymphedema. There is lymphedema of the right leg though this appears to be less severe. There is beginning of possible blisters over the posterior aspect of the left lower extremity Assessment/Plan Impression/Plan: 33-year-old woman with chronic lymphedema admitted with cellulitis and failed outpatient Keflex recommendation is made for aggressive leg elevation. She is advised to replace her compression stockings at home given their age. Recommendation is made for lymphedema pump for use at home. Can be arranged through the wound center or by case management Consult Acknowledgment - Thank you for your consult request.
[2018-05-17 21:40] VITALS: BP 124/72
--- NOTE | 2018-05-18 05:40 | Patient Discharge Instructions ---
Discharge Instructions General Discharge Information You were seen/treated for: Left leg cellulitis Chronic Lymphedema Special Instructions: Please follow up with PCP within one week of discharge to evaluate your cellulitis. Please follow up with lymphedema clinic. Please continue taking new medications as prescribed. If you experience any fevers, chills, nausea, vomiting, please come back to ER. Please replace your compression stockings at home given their age. We recommend usage of lymphedema pump at home. Acute Coronary Syndrome Inclusion Criteria At DC or during hospital stay patient has or had the following: ACS DIAGNOSIS No Discharge Core Measures Meds if any: Prescribed or Continued at Discharge Meds if any: NOT Prescribed or Continued at Discharge Congestive Heart Failure Inclusion Criteria At DC or during hospital stay patient has or had the following: CHF DIAGNOSIS No Discharge Core Measures Meds if any: Prescribed or Continued at Discharge Meds if any: NOT Prescribed or Continued at Discharge Cerebrovascular accident Inclusion Criteria At DC or during hospital stay patient has or had the following: CVA/TIA Diagnosis No Discharge Core Measures Meds if any: Prescribed or Continued at Discharge Meds if any: NOT Prescribed or Continued at Discharge Venous thromboembolism Inclusion Criteria VTE Diagnosis No VTE Type NONE VTE Confirmed by (Test) NONE Discharge Core Measures - Per Current guidelines, there needs to be overlap - treatment for the first 5 days of Warfarin therapy. - If discharged on Warfarin prior to 5 days of - overlap therapy, the patient will need to be - assessed for post discharge needs including - *Post discharge parental anticoagulation - *Warfarin and/or parental anticoagulation education - *Follow up date to check INR post discharge At least 5 days overlap therapy as Inpatient No Meds if any: Prescribed or Continued at Discharge Note: Overlap Therapy is Warfarin and Anticoagulant Meds if any: NOT Prescribed or Continued at Discharge Meds if any: NOT Prescribed or Continued at Discharge
[2018-05-18 06:09] VITALS: BP 128/62
--- NOTE | 2018-05-18 07:08 | PN- Housestaff ---
See Addendum Subjective Follow-up For: Lower left extremity cellulitis Subjective: Patient seen and examined at bedside. She denies any fever, chills, or nausea last night. She feels that her swelling has reduced because she feels less tightness around the lower left ext. Review of Systems Constitutional: Denies: see HPI. Objective Last 24 Hrs of Vital Signs/I&O Vital Signs Date Time Temp Pulse Resp B/P B/P Pulse O2 O2 Flow FiO2 Mean Ox Delivery Rate 05/18 0632 16 05/18 0609 98.4 82 128/62 98 05/17 2140 97.9 75 16 124/72 100 Room Air 05/17 1600 Room Air 05/17 1404 98.1 87 18 102/60 99 Intake & Output 05/18 1600 05/18 0800 05/18 0000 Intake Total 260 1200 Output Total Balance 260 1200 Intake, IV 260 200 Intake, Oral 1000 Physical Exam General Appearance: Alert, Oriented X3, Cooperative, No Acute Distress Skin: LLE erythematous area smaller, less erythematous, slightly more indurated Skin Temp/Moisture Exam: Warm/Dry Sepsis Skin Exam (color): Normal for Ethnicity HEENT: Atraumatic, Mucous Membr. moist/pink Neck: Supple Cardiovascular: Normal S1, Normal S2 Lungs: Clear to Auscultation, Normal Air Movement Abdomen: Normal Bowel Sounds, Soft, No Tenderness Neurological: Normal Speech, Sensation Intact Extremities: Less tenderness today Vascular: Normal Pulses Current Medications: Current Medications Sig/Juan Carlos Start time Last Medication Dose Route Stop Time Status Admin Acetaminophen 650 MG Q6P PRN 05/15 2245 AC 05/17 PO 1756 Acetaminophen 1,000 MG Q6P PRN 05/15 2245 AC IV Ampicillin Sodium/ 3,000 MG Q6 05/16 0027 AC 05/18 Sulbactam Sodium IV 0530 Sodium Chloride 100 ML Cholecalciferol 1,000 IU DAILY 05/16 900 AC 05/17 PO 51 Enoxaparin Sodium 40 MG DAILY 05/16 900 AC 05/17 SC 0952 Ferrous Sulfate 325 MG DAILY 05/16 900 AC 05/17 PO 0951 Furosemide 20 MG ONCE ONE 05/18 0945 DC IV 05/18 0946 Furosemide 20 MG ONCE ONE 05/17 1030 DC 05/17 IV 05/17 1031 1237 Glycerin/Mineral Oil 1 MELANI TIDPRN PRN 05/17 1045 05/17 TOP 1237 Non-Formulary 0 SEE ADMIN CRITERIA 05/17 1045 CAN Medication ANY Assessment/Plan Assessment: 33 year old female with past medical history of asthma, lymphedema and recurrent cellulitis who presented to the ED with cheif complaint of worsening lower extremity swelling and edema. Today cellulitis appears to be improving, along with the fact she did not feel feverish last night, we can most likely keep this antibiotic regimen. At the same time we will ask wound care to continue evaluating her, to help relieve some of the swelling as this is a chronic underlying problem. As she is feeling better and determined to go back to her life/work she will most likley be discharged today. #Lower left extremity cellulitis #Chronic venous stasis/lymphedema -Wound care consult for patient's lymphedema -Elevate left lower extremity -Topical Lubriderm to infected area to prevent dryness, abrasion, pruritus -Continue antibiotic regimen for now -Monitor for fevers -Monitor white count -Zofran for nausea as needed -DC planning DVT prophylaxis Regular diet Full code Problem List: 1. Cellulitis of leg, left Pain Ratin Pain Location: n/a Pain Goal: Remain pain free Pain Plan: Per pathway Tomorrow's Labs & Rationales: None
--- NOTE | 2018-05-18 08:33 | PN- Wound Care ---
Subjective Subjective: Patient feels better without fever or chills Objective Vital Signs and I&Os Vital Signs Result Date Time Resp 16 05/18 0632 Pulse Ox 98 05/18 0609 B/P 128/62 05/18 0609 Temp 98.4 05/18 0609 Pulse 82 05/18 0609 O2 Delivery Room Air 05/17 2140 Intake & Output 05/18 0000 05/17 1600 05/17 0800 Intake Total 1200 500 320 Output Total Balance 1200 500 320 Intake, IV 200 100 200 Intake, Oral 1000 400 120 Number 1 Bowel Movements Physical Exam: Erythema is markedly improved especially anteriorly. Minor blistering persists over the posterior leg but there are no open ulcers. Impression/Plan Impression/Plan Impression/Plan: 33-year-old woman with lymphedema and recurrent cellulitis. She has responded with decreased temperature and white count and resolution of bandemia. Likely organism is again strep. Complete course of antibiotics outpatient evaluation for lymphedema pump.
[2018-05-18] MEDS ORDERED: AUGMENTIN 875-1 EACH PO ×3 (08:35→17:09)
[2018-05-18] MEDS ORDERED: FUROSEMIDE20 M1 PO ×2 (11:57→17:09)
--- NOTE | 2018-05-18 13:53 | Discharge Summary ---
Hospital Course Allergies: Coded Allergies: No Known Allergies (02/18/17) Discharge Instructions Medications at Discharge Discharge Medications: Stop taking the following medications: Cephalexin (Keflex) 500 MG CAPSULE ORAL Q6H Qty = 40 Continue taking these medications: Ferrous Sulfate (Ferrous Sulfate) 325 MG (65 MG IRON) TABLET 1 Tablet ORAL DAILY Comments: Last Taken: 05/18/18 Time: 10:00 AM Cetirizine HCl (Zyrtec) 10 MG TABLET 1 Tablet ORAL DAILY NEEDED as needed for RHINITIS Qty = 30 Comments: NOT GIVEN IN HOSPITAL Cholecalciferol (Vitamin D3) (Vitamin D) 1,000 UNIT TABLET 1 Tablet ORAL DAILY Qty = 30 Instructions: . Comments: Last Taken: 05/18/18 Time: 10:00 AM Start taking the following new medications: Furosemide (Furosemide) 20 MG TABLET 1 Tablet ORAL DAILY Qty = 5 No Refills Instructions: Take one pill daily for 5 days. Comments: Last Taken: 05/18/18 Time: 10:00 AM Amoxicillin/Potassium Clav (Augmentin 875-125 Tablet) 875 MG-125 MG TABLET 1 Tablet ORAL TWICE DAILY Qty = 14 No Refills Comments: NOT GIVEN IN HOSPITAL
== END 2018-05-18 17:20 | DRG 603 ==
LOC: ERH 18:24 → ERHI 22:01 → 2NB 22:01 → ENRESERV 22:32 → 2NB 23:32 → ENPENDDIS 05-18 13:50 → 2NB 05-18 17:20
PROVIDERS: Physician Assistant; Student in an Organized Health Care Education/Training Program
DX: L03.116 Cellulitis of left lower limb (principal); Z68.43 Body mass index [BMI] 50.0-59.9, adult; J45.909 Unspecified asthma, uncomplicated; E66.01 Morbid (severe) obesity due to excess calories; I87.8 Other specified disorders of veins; I89.0 Lymphedema, not elsewhere classified; D50.9 Iron deficiency anemia, unspecified; E55.9 Vitamin D deficiency, unspecified; A49.1 Streptococcal infection, unspecified site; Z98.51 Tubal ligation status
CPT/HCPCS: 2NBP; 36592; 82436; 87040; 93005; 93010; 93970; 96374; 96375; J0131; J1650; J1940; J2405; J3101; J3370; J7040; J7042